=== PATIENT | female | born 1995 | race Caucasian/White ===

== ENCOUNTER 2018-05-30 16:06 | Outpatient (CLI) | payer MEDICAID, OTHER ==
[~2018-05-30] VITALS: Ht 165.1 cm; Wt 76.8 kg
--- NOTE | 2018-05-30 16:15 | NUR ---
DAVID LOPEZ presented to unit from ED, with c/o fever, headache, and elevated BP. DAVID LOPEZ weighed, gowned, voided, and to bed. EFHM and TOCO applied, VS taken, UA obtained. DAVID LOPEZ oriented to bed controls, call light, TV, heat, and A/C controls.
[2018-05-30 16:30] VITALS: BP 135/81
[2018-05-30 16:42] LABS: BILIRUBIN,URINE NEGATIVE (NEGATIVE); CLARITY,URINE CLEAR; COLOR,URINE YELLOW; GLUCOSE, URINE (UA) NEGATIVE (NEGATIVE); KETONES,URINE NEGATIVE (NEGATIVE); LEUKOCYTE ESTERASE ,URINE NEGATIVE (NEGATIVE); NITRITE,URINE NEGATIVE (NEGATIVE); PH,URINE 7 (5-9); PROTEIN,URINE NEGATIVE (NEGATIVE); UROBILINOGEN,URINE NORMAL (NORMAL)
[2018-05-30] MEDS ORDERED: PREN-53 PO (16:43)
[2018-05-30] MEDS ORDERED: BUTA1TAB9 PO (16:43)
[2018-05-30 16:48] LABS: BACTERIA,URINE TRACE /HPF
[2018-05-30 16:50] VITALS: BP 117/68
[2018-05-30 17:05] VITALS: BP 130/76
--- NOTE | 2018-05-30 17:12 | NUR ---
Dr. Avelar called and notified of pt. arrival, complaints, UA, VS, and FHR. Orders received via telephone with readback to discharge pt. home and to instruct her to call tomorrow for an appointment on Thursday to see in office and to take Fioricet every 4hours for headache. Discharge instructions given and pt. instructed to call or return to unit if she had any other questions or concerns.
[2018-05-30 17:20] VITALS: BP 125/68
--- NOTE | 2018-05-30 17:42 | NUR ---
Pt. ambulated off unit to personal vehicle. All personal belongings with pt. No s/s of distress noted.
== END 2018-05-30 17:42 | disposition home or self-care (01) ==
LOC: LDRP 16:06 → WSo 16:06
PROVIDERS: ATTEND Obstetrics & Gynecology
DX: R03.0 Elevated blood-pressure reading, without diagnosis of hypertension (principal); Z3A.26 26 weeks gestation of pregnancy
CPT/HCPCS: 81000; 99212

== ENCOUNTER 2018-07-09 15:43 | Outpatient (CLI) | payer MEDICAID ==
[~2018-07-09] VITALS: Ht 165.1 cm; Wt 81.8 kg
[~2018-07-09 15:43] MED LIST: BUTA1TAB9 PO; PREN-53 PO
--- NOTE | 2018-07-09 15:45 | NUR ---
DAVID LOPEZ presented to unit via ambulation from ED, with c/o HIGH BP, HIGH HEART RATE, SOB. DAVID LOPEZ weighed, gowned, voided, and to bed. EFHM and TOCO applied, VS taken. DAVID LOPEZ oriented to bed controls, call light, TV, heat, and A/C controls.
[2018-07-09 16:00] VITALS: BP 152/89
[2018-07-09 16:15] VITALS: BP 140/79
--- NOTE | 2018-07-09 16:17 | NUR ---
DR COLE CALLED BY THIS RN WITH PT REPORT. VS, BP 152/89, HR 108, CO CHEST PAIN, HEADACHE, SHORTNESS OF BREATH, SEEING SHADOWS. URINE DIP RESULTS. FHT STRIP RESULTS. DR COLE WOULD LIKE INTERNAL MEDICINE TO EVAL PT. THIS RN CALLED HOUSE SUPP. IN ORDER TO DO SO, WILL NEED TO DC FROM OB OUTPATIENT AND SEND TO ER FOR INTERNAL MED EVAL.
[2018-07-09 16:30] VITALS: BP 125/63
--- NOTE | 2018-07-09 17:00 | NUR ---
PT HAS BEEN DC FROM OB OUTPATIENT AND TAKEN BY WHEELCHAIR TO ER FOR EVALUATION AT THIS TIME.
== END 2018-07-09 17:00 | disposition home or self-care (01) ==
LOC: WSo 15:43 → LDRP 15:43 → WSo 17:00
PROVIDERS: ATTEND Obstetrics & Gynecology
DX: R03.0 Elevated blood-pressure reading, without diagnosis of hypertension (principal); Z3A.32 32 weeks gestation of pregnancy
CPT/HCPCS: 99213

== ENCOUNTER 2018-07-09 17:07 | Emergency (ER) | payer MEDICAID ==
[~2018-07-09] VITALS: Ht 165.1 cm; Wt 80.7 kg
--- OUTSIDE RECORDS SUMMARY | 2018-07-09 17:13 | XMS REPORT ---
Author Author JOSI ARLETH [facility] Address [address] [place] [address] Care Team Providers Care Child Protective Services Specialist Name Role Phone ARLETH PRATER Unavailable PROBLEMS Type Condition ICD9-CM Code [id number] Code Onset Dates Condition Status SNOMED Code Problem Depressive disorder, not elsewhere classified F32.9 Active 68787230 Problem ADHD (attention deficit hyperactivity disorder), combined type F90.2 Active 18611391 Problem Anxiety disorder, unspecified type F41.9 Active [id number] ALLERGIES No Information ENCOUNTERS Encounter Location Date Diagnosis [facility] [id number] [place] [address] 03471- 4853 Mar, [facility] [id number] [place] [address] 91621- 2376 Feb, ADHD (attention deficit hyperactivity disorder), combined type F90.2 [facility] [id number] [place] [address] 00046- 3279 Jan, ADHD (attention deficit hyperactivity disorder), combined type F90.2 [facility] [id number] [place] [address] 79571- 5262 Dec, ADHD (attention deficit hyperactivity disorder), combined type F90.2 [facility] [id number] [place] [address] 15375- 4917 Dec, ADHD (attention deficit hyperactivity disorder), combined type F90.2 [facility] [id number] [place] [address] 60595- 5357 Nov, ADHD (attention deficit hyperactivity disorder), combined type F90.2 [facility] [id number] [place] [address] 20178- 6853 Oct, ADHD (attention deficit hyperactivity disorder), combined type F90.2 ; Anxiety disorder, unspecified type F41.9 and Depressive disorder, not elsewhere classified F32.9 [facility] [address] [address] Oct, ADHD (attention deficit hyperactivity disorder), combined type F90.2 [facility] [address] [place] [address] Oct, [facility] [id number] [place] [address] 33046- 7717 September, ADHD (attention deficit hyperactivity disorder), combined type F90.2 [facility] [id number] [address] September, [facility] [id number] [address] 0[address] September, ADHD (attention deficit hyperactivity disorder), combined type F90.2 [facility] [address] [place] [address] Aug, ADHD (attention deficit hyperactivity disorder), combined type F90.2 ; Anxiety disorder, unspecified type F41.9 and Depressive disorder, not elsewhere classified F32.9 [facility] [address], [place] [address] Aug, ADHD (attention deficit hyperactivity disorder), combined type F90.2 [facility] [address] [place] [address] Jul, [facility] [address] [place] [address] 489[address] Jul, ADHD (attention deficit hyperactivity disorder), combined type F90.2 [facility] [address], [place] [address] Jun, ADHD (attention deficit hyperactivity disorder), combined type F90.2 [facility] [address] [place] [address] 6[address] Jun, ADHD (attention deficit hyperactivity disorder), combined type F90.2 [facility] [id number] [place] [address] 91541- 5724 May, ADHD (attention deficit hyperactivity disorder), combined type F90.2 [facility] [id number] [place] [address] 59071- 1907 May, [facility] [id number] [place] [address] 27681- 9879 May, ADHD (attention deficit hyperactivity disorder), combined type F90.2 ; Anxiety disorder, unspecified type F41.9 ; Depressive disorder, not elsewhere classified F32.9 and Obsessive-compulsive disorder, unspecified type F42.9 [facility] [id number] [place] [address] 00376- 3965 Apr, ADHD (attention deficit hyperactivity disorder), combined type F90.2 [facility] [id number] [place] [address] 83521 -6769 Apr, Acute suppurative otitis media of left ear without spontaneous rupture of tympanic membrane, recurrence not specified H66.002 [facility] [id number] [place] [address] 14962- 9604 Apr, [facility] [address] [place] [address] Mar, [facility] [id number] [place] [address] 95448- 5974 Mar, ADHD (attention deficit hyperactivity disorder), combined type F90.2 [facility] [address], [place] [address] 0679 Feb, ADHD (attention deficit hyperactivity disorder), combined type F90.2 [facility] [address], [place] [address] Feb, [facility] [id number] [place] [address] 96177- 5360 Jan, ADHD (attention deficit hyperactivity disorder), combined type F90.2 ; Anxiety disorder, unspecified type F41.9 ; Depressive disorder, not elsewhere classified F32.9 and Obsessive-compulsive disorder, unspecified type F42.9 [facility] [address], [place] [address] Dec, ADHD (attention deficit hyperactivity disorder), combined type F90.2 ; Anxiety disorder, unspecified type F41.9 ; Depressive disorder, not elsewhere classified F32.9 and Obsessive-compulsive disorder, unspecified type F42.9 [facility] [address], [place] [address] 9[address] Dec, [facility] [id number] [place] [address] 06198- 6837 Nov, ADHD (attention deficit hyperactivity disorder), combined type F90.2 ; Anxiety disorder, unspecified type F41.9 ; Depressive disorder, not elsewhere classified F32.9 and Obsessive-compulsive disorder, unspecified type F42.9 [facility] [address], [place] [address] Nov, ADHD (attention deficit hyperactivity disorder), combined type F90.2 ; Anxiety disorder, unspecified type F41.9 ; Depressive disorder, not elsewhere classified F32.9 and Obsessive-compulsive disorder, unspecified type F42.9 [facility] [address], [place] [address]- 2603 Nov, [facility] [address] [address]- 0811 Oct, ADHD (attention deficit hyperactivity disorder), combined type F90.2 [facility] [address], [place] [address]- 7797 Oct, [facility] [address] [place] [address]- 1280 Oct, ADHD (attention deficit hyperactivity disorder), combined type F90.2 [facility] [address] [place] [address] 51702- 9273 Oct, ADHD (attention deficit hyperactivity disorder), combined type F90.2 ; Anxiety disorder, unspecified type F41.9 ; Depressive disorder, not elsewhere classified F32.9 and Obsessive-compulsive disorder, unspecified type F42.9 [facility] [address] [facility] [id number] [place] [address] Oct, Depressive disorder, not elsewhere classified F32.9 ; Anxiety disorder, unspecified type F41.9 and ADHD (attention deficit hyperactivity disorder), combined type F90.2 IMMUNIZATIONS No Known Immunizations SOCIAL HISTORY Never Assessed REASON FOR VISIT Controlled Med Refill x2 ADHD PLAN OF CARE VITAL SIGNS MEDICATIONS Medication Instructions Dosage Frequency Start Date End Date Duration Status Vyvanse 60 mg Orally Once a day in the morning 1 capsule in the morning Feb, 28 days Active Adderall 10 mg Orally Once a day in the afternoon 1 tablet Feb, 28 days Active RESULTS No Results PROCEDURES No Known procedures INSTRUCTIONS MEDICATIONS ADMINISTERED No Known Medications MEDICAL (GENERAL) HISTORY Type Description Date Medical History migraines Medical History asthma Medical History Hx of febrile seizure at 18 mos Medical History Denies any hx of heart problem Surgical History C section Surgical History [place] [facility] Hospitalization History Surgery/Child Hospitalization History psychiatric hospitalization 2010
--- OUTSIDE RECORDS SUMMARY | 2018-07-09 17:13 | XMS REPORT ---
Author Author JOSI ARLETH [facility] Address [address] [place] [address] Care Team Providers Care Quarry Boss Name Role Phone ARLETH PRATER Unavailable PROBLEMS Type Condition ICD9-CM Code [id number] Code Onset Dates Condition Status SNOMED Code Problem Depressive disorder, not elsewhere classified F32.9 Active [id number] Problem ADHD (attention deficit hyperactivity disorder), combined type F90.2 Active 67584328 Problem Anxiety disorder, unspecified type F41.9 Active [id number] ALLERGIES No Information ENCOUNTERS Encounter Location Date Diagnosis [facility] [id number] [place] [address] 21971- 8287 Jan, ADHD (attention deficit hyperactivity disorder), combined type F90.2 [facility] [id number] [place] [address] 04272- 9759 Dec, ADHD (attention deficit hyperactivity disorder), combined type F90.2 [facility] [id number] [place] [address] 93722- 0055 Dec, ADHD (attention deficit hyperactivity disorder), combined type F90.2 [facility] [id number] [place] [address] 32874- 3751 Nov, ADHD (attention deficit hyperactivity disorder), combined type F90.2 [facility] [id number] [place] [address] 20221- 0099 Oct, ADHD (attention deficit hyperactivity disorder), combined type F90.2 ; Anxiety disorder, unspecified type F41.9 and Depressive disorder, not elsewhere classified F32.9 [facility] [id number] [place] [address] 50828- 1320 Oct, ADHD (attention deficit hyperactivity disorder), combined type F90.2 [facility] [address] [address]- 96[address] Oct, [facility] [id number] [address]- 9[address] September, ADHD (attention deficit hyperactivity disorder), combined type F90.2 [facility] [address] [address]- 5[address] September, [facility] [id number] [address]- 2110 September, ADHD (attention deficit hyperactivity disorder), combined type F90.2 [facility] [address] [address]- 9632 Aug, ADHD (attention deficit hyperactivity disorder), combined type F90.2 ; Anxiety disorder, unspecified type F41.9 and Depressive disorder, not elsewhere classified F32.9 [facility] [address] [address]- 8891 Aug, ADHD (attention deficit hyperactivity disorder), combined type F90.2 [facility] [address] [address]- 0813 Jul, [facility] [id number] [address]- 7465 Jul, ADHD (attention deficit hyperactivity disorder), combined type F90.2 [facility] [address] [address]- 9457 Jun, ADHD (attention deficit hyperactivity disorder), combined type F90.2 [facility] [id number] [address]- 3790 Jun, ADHD (attention deficit hyperactivity disorder), combined type F90.2 [facility] [id number] [address]- 5074 May, ADHD (attention deficit hyperactivity disorder), combined type F90.2 [facility] [id number] [address]- 7650 May, [facility] [id number] [place] [address] 70182- 8897 May, ADHD (attention deficit hyperactivity disorder), combined type F90.2 ; Anxiety disorder, unspecified type F41.9 ; Depressive disorder, not elsewhere classified F32.9 and Obsessive-compulsive disorder, unspecified type F42.9 [facility] [id number] [place] [address] 85460- 2514 Apr, ADHD (attention deficit hyperactivity disorder), combined type F90.2 [facility] [id number] [place] [address] 36693 -9298 Apr, Acute suppurative otitis media of left ear without spontaneous rupture of tympanic membrane, recurrence not specified H66.002 [facility] [id number] [place] [address] 79707- 0778 Apr, [facility] [id number] [place] [address] 09102- 0279 Mar, [facility] [id number] [place] [address] 24096- 5960 Mar, ADHD (attention deficit hyperactivity disorder), combined type F90.2 [facility] [id number] [place] [address] 04643- 1613 Feb, ADHD (attention deficit hyperactivity disorder), combined type F90.2 [facility] [id number] [place] [address] 59931- 8818 Feb, [facility] [id number] [place] [address] 65646- 4825 Jan, ADHD (attention deficit hyperactivity disorder), combined type F90.2 ; Anxiety disorder, unspecified type F41.9 ; Depressive disorder, not elsewhere classified F32.9 and Obsessive-compulsive disorder, unspecified type F42.9 [facility] [id number] [place] [address] 50962- 2741 Dec, ADHD (attention deficit hyperactivity disorder), combined type F90.2 ; Anxiety disorder, unspecified type F41.9 ; Depressive disorder, not elsewhere classified F32.9 and Obsessive-compulsive disorder, unspecified type F42.9 [facility] [address] [address]- 3694 Dec, [facility] [id number] [address]- 9511 Nov, ADHD (attention deficit hyperactivity disorder), combined type F90.2 ; Anxiety disorder, unspecified type F41.9 ; Depressive disorder, not elsewhere classified F32.9 and Obsessive-compulsive disorder, unspecified type F42.9 [facility] [id number] [place] [address] 68758- 1463 Nov, ADHD (attention deficit hyperactivity disorder), combined type F90.2 ; Anxiety disorder, unspecified type F41.9 ; Depressive disorder, not elsewhere classified F32.9 and Obsessive-compulsive disorder, unspecified type F42.9 [facility] [address] [address]- 7258 Nov, [facility] [id number] [place] [address] 72751- 1281 Oct, ADHD (attention deficit hyperactivity disorder), combined type F90.2 [facility] [address] [address]- 6232 Oct, [facility] [address] [address]- 6924 Oct, ADHD (attention deficit hyperactivity disorder), combined type F90.2 [facility] [address] [address]- 7799 Oct, ADHD (attention deficit hyperactivity disorder), combined type F90.2 ; Anxiety disorder, unspecified type F41.9 ; Depressive disorder, not elsewhere classified F32.9 and Obsessive-compulsive disorder, unspecified type F42.9 [facility] [id number] [address]- 7[address] Oct, Depressive disorder, not elsewhere classified F32.9 ; Anxiety disorder, unspecified type F41.9 and ADHD (attention deficit hyperactivity disorder), combined type F90.2 IMMUNIZATIONS No Known Immunizations SOCIAL HISTORY Never Assessed REASON FOR VISIT vyvanse/adderall 01/25/2018 PLAN OF CARE VITAL SIGNS MEDICATIONS Medication Instructions Dosage Frequency Start Date End Date Duration Status Adderall 10 mg Orally Once a day in the afternoon 1 tablet Dec, 28 days Active Vyvanse 60 mg Orally Once a day in the morning 1 capsule in the morning Dec, 28 days Active RESULTS No Results PROCEDURES No Known procedures INSTRUCTIONS MEDICATIONS ADMINISTERED No Known Medications MEDICAL (GENERAL) HISTORY Type Description Date Medical History migraines Medical History asthma Medical History Hx of febrile seizure at 18 mos Medical History Denies any hx of heart problem Surgical History C section Surgical History [place] [facility] Hospitalization History Surgery/Child Hospitalization History psychiatric hospitalization 2010
--- OUTSIDE RECORDS SUMMARY | 2018-07-09 17:13 | XMS REPORT ---
Author Author JOSI ARLETH [facility] Address [address] [place] [address] Care Team Providers Care Layout Worker Name Role Phone ARLETH PRATER Unavailable PROBLEMS Type Condition ICD9-CM Code TGZ38-PT Code Onset Dates Condition Status SNOMED Code Problem Depressive disorder, not elsewhere classified F32.9 Active 52305755 Problem ADHD (attention deficit hyperactivity disorder), combined type F90.2 Active 16975004 Problem Anxiety disorder, unspecified type F41.9 Active [id number] ALLERGIES No Information ENCOUNTERS Encounter Location Date Diagnosis [facility] [id number] [place] [address] 95088- 0210 Apr, [facility] [id number] [place] [address] 83465- 6669 Mar, ADHD (attention deficit hyperactivity disorder), combined type F90.2 [facility] [id number] [place] [address] 77345- 2675 Feb, ADHD (attention deficit hyperactivity disorder), combined type F90.2 [facility] [id number] [place] [address] 94552- 7654 Jan, ADHD (attention deficit hyperactivity disorder), combined type F90.2 [facility] [id number] [place] [address] 70699- 5866 Dec, ADHD (attention deficit hyperactivity disorder), combined type F90.2 [facility] [id number] [place] [address] 73860- 6316 Dec, ADHD (attention deficit hyperactivity disorder), combined type F90.2 [facility] [id number] [place] [address] 16115- 2372 Nov, ADHD (attention deficit hyperactivity disorder), combined type F90.2 [facility] [id number] [address] Oct, ADHD (attention deficit hyperactivity disorder), combined type F90.2 ; Anxiety disorder, unspecified type F41.9 and Depressive disorder, not elsewhere classified F32.9 [facility] [address] [address] 4098 Oct, ADHD (attention deficit hyperactivity disorder), combined type F90.2 [facility] [id number] [address] 8561 Oct, [facility] [id number] [address] 28[address] September, ADHD (attention deficit hyperactivity disorder), combined type F90.2 [facility] [address] [address] September, [facility] [id number] [address] 5184 September, ADHD (attention deficit hyperactivity disorder), combined type F90.2 [facility] [address] [address] 47[address] Aug, ADHD (attention deficit hyperactivity disorder), combined type F90.2 ; Anxiety disorder, unspecified type F41.9 and Depressive disorder, not elsewhere classified F32.9 [facility] [address] [address] 5499 Aug, ADHD (attention deficit hyperactivity disorder), combined type F90.2 [facility] [id number] [address] 3896 Jul, [facility] [id number] [address] 0243 Jul, ADHD (attention deficit hyperactivity disorder), combined type F90.2 [facility] [id number] [address] 9558 Jun, ADHD (attention deficit hyperactivity disorder), combined type F90.2 [facility] [address] [place] [address] 18447- 0082 Jun, ADHD (attention deficit hyperactivity disorder), combined type F90.2 [facility] [address] [address] 7710 May, ADHD (attention deficit hyperactivity disorder), combined type F90.2 [facility] [id number] [place] [address] 22078- 4891 May, [facility] [id number] [place] [address] 82187- 0794 May, ADHD (attention deficit hyperactivity disorder), combined type F90.2 ; Anxiety disorder, unspecified type F41.9 ; Depressive disorder, not elsewhere classified F32.9 and Obsessive-compulsive disorder, unspecified type F42.9 [facility] [id number] [place] [address] 78780- 5736 Apr, ADHD (attention deficit hyperactivity disorder), combined type F90.2 [facility] [id number] [place] [address] 68949 -5176 Apr, Acute suppurative otitis media of left ear without spontaneous rupture of tympanic membrane, recurrence not specified H66.002 [facility] [address] [address] 2086 Apr, [facility] [id number] [place] [address] 95278- 8170 Mar, [facility] [address] [place] [address] 42965- 4008 Mar, ADHD (attention deficit hyperactivity disorder), combined type F90.2 [facility] [address] [place] [address] 06796- 9627 Feb, ADHD (attention deficit hyperactivity disorder), combined type F90.2 [facility] [id number] [address] 0134 Feb, [facility] [id number] [place] [address] 31480- 8463 Jan, ADHD (attention deficit hyperactivity disorder), combined type F90.2 ; Anxiety disorder, unspecified type F41.9 ; Depressive disorder, not elsewhere classified F32.9 and Obsessive-compulsive disorder, unspecified type F42.9 [facility] [id number] [place] [address] 15359- 9623 Dec, ADHD (attention deficit hyperactivity disorder), combined type F90.2 ; Anxiety disorder, unspecified type F41.9 ; Depressive disorder, not elsewhere classified F32.9 and Obsessive-compulsive disorder, unspecified type F42.9 [place] [facility] [id number] [place] [address] 67385- 5591 Dec, [facility] [id number] [place] [address] 47307- 7926 Nov, ADHD (attention deficit hyperactivity disorder), combined type F90.2 ; Anxiety disorder, unspecified type F41.9 ; Depressive disorder, not elsewhere classified F32.9 and Obsessive-compulsive disorder, unspecified type F42.9 [facility] [address] [place] [address] 71807- 0017 Nov, ADHD (attention deficit hyperactivity disorder), combined type F90.2 ; Anxiety disorder, unspecified type F41.9 ; Depressive disorder, not elsewhere classified F32.9 and Obsessive-compulsive disorder, unspecified type F42.9 [facility] [address] [address]- 9708 Nov, [facility] [id number] [place] [address] 29293- 6216 Oct, ADHD (attention deficit hyperactivity disorder), combined type F90.2 [facility] [address] [address]- 8697 Oct, [facility] [id number] [place] [address] 12231- 4225 Oct, ADHD (attention deficit hyperactivity disorder), combined type F90.2 [place] [address] [facility] [id number] [address] Oct, ADHD (attention deficit hyperactivity disorder), combined type F90.2 ; Anxiety disorder, unspecified type F41.9 ; Depressive disorder, not elsewhere classified F32.9 and Obsessive-compulsive disorder, unspecified type F42.9 [address] [place] [address] [facility] [id number] [address] Oct, Depressive disorder, not elsewhere classified F32.9 ; Anxiety disorder, unspecified type F41.9 and ADHD (attention deficit hyperactivity disorder), combined type F90.2 IMMUNIZATIONS No Known Immunizations SOCIAL HISTORY Never Assessed REASON FOR VISIT Controlled refill PLAN OF CARE VITAL SIGNS MEDICATIONS Medication Instructions Dosage Frequency Start Date End Date Duration Status Adderall 10 mg Orally Once a day in the afternoon 1 tablet Apr, 21 days Active Vyvanse 60 mg Orally Once a day in the morning 1 capsule in the morning Apr, 21 days Active RESULTS No Results PROCEDURES No Known procedures INSTRUCTIONS MEDICATIONS ADMINISTERED No Known Medications MEDICAL (GENERAL) HISTORY Type Description Date Medical History migraines Medical History asthma Medical History Hx of febrile seizure at 18 mos Medical History Denies any hx of heart problem Surgical History C section Surgical History [place] [facility] Hospitalization History Surgery/Child Hospitalization History psychiatric hospitalization 2010
--- OUTSIDE RECORDS SUMMARY | 2018-07-09 17:13 | XMS REPORT ---
Author Author JOSI ARLETH [facility] Address [address] [place] [address] Care Team Providers Care Private Tutor Name Role Phone ARLETH PRATER Unavailable PROBLEMS Type Condition ICD9-CM Code CUV51-IA Code Onset Dates Condition Status SNOMED Code Problem Depressive disorder, not elsewhere classified F32.9 Active [id number] Problem ADHD (attention deficit hyperactivity disorder), combined type F90.2 Active 81991261 Problem Anxiety disorder, unspecified type F41.9 Active [id number] ALLERGIES No Information ENCOUNTERS Encounter Location Date Diagnosis [facility] [id number] [place] [address] 60656- 5252 Jan, ADHD (attention deficit hyperactivity disorder), combined type F90.2 [facility] [id number] [place] [address] 59190- 0608 Dec, ADHD (attention deficit hyperactivity disorder), combined type F90.2 [facility] [id number] [place] [address] 24609- 8545 Dec, ADHD (attention deficit hyperactivity disorder), combined type F90.2 [facility] [id number] [place] [address] 82528- 7014 Nov, ADHD (attention deficit hyperactivity disorder), combined type F90.2 [facility] [id number] [place] [address] 05297- 4849 Oct, ADHD (attention deficit hyperactivity disorder), combined type F90.2 ; Anxiety disorder, unspecified type F41.9 and Depressive disorder, not elsewhere classified F32.9 [facility] [id number] [place] [address] 32601- 8468 Oct, ADHD (attention deficit hyperactivity disorder), combined type F90.2 [facility] [address] [address]- 1292 Oct, [facility] [id number] [address]- 3801 September, ADHD (attention deficit hyperactivity disorder), combined type F90.2 [facility] [address] [address]- 7537 September, [facility] [id number] [address]- 9814 September, ADHD (attention deficit hyperactivity disorder), combined type F90.2 [facility] [address] [address]- 7170 Aug, ADHD (attention deficit hyperactivity disorder), combined type F90.2 ; Anxiety disorder, unspecified type F41.9 and Depressive disorder, not elsewhere classified F32.9 [facility] [address] [address]- 1030 Aug, ADHD (attention deficit hyperactivity disorder), combined type F90.2 [facility] [address] [address]- 5786 Jul, [facility] [address] [address]- 6399 Jul, ADHD (attention deficit hyperactivity disorder), combined type F90.2 [facility] [address] [address]- 5769 Jun, ADHD (attention deficit hyperactivity disorder), combined type F90.2 [facility] [id number] [address]- 7437 Jun, ADHD (attention deficit hyperactivity disorder), combined type F90.2 [facility] [id number] [address]- 9273 May, ADHD (attention deficit hyperactivity disorder), combined type F90.2 [facility] [id number] [address]- 8326 May, [facility] [id number] [place] [address] 26810- 1125 May, ADHD (attention deficit hyperactivity disorder), combined type F90.2 ; Anxiety disorder, unspecified type F41.9 ; Depressive disorder, not elsewhere classified F32.9 and Obsessive-compulsive disorder, unspecified type F42.9 [facility] [id number] [place] [address] 03723- 2298 Apr, ADHD (attention deficit hyperactivity disorder), combined type F90.2 [facility] [id number] [place] [address] 17268 -3057 Apr, Acute suppurative otitis media of left ear without spontaneous rupture of tympanic membrane, recurrence not specified H66.002 [facility] [id number] [place] [address] 49087- 0717 Apr, [facility] [id number] [place] [address] 45574- 8545 Mar, [facility] [id number] [place] [address] 80556- 1229 Mar, ADHD (attention deficit hyperactivity disorder), combined type F90.2 [facility] [id number] [place] [address] 43300- 9920 Feb, ADHD (attention deficit hyperactivity disorder), combined type F90.2 [facility] [id number] [place] [address] 18771- 9074 Feb, [facility] [id number] [place] [address] 83829- 4787 Jan, ADHD (attention deficit hyperactivity disorder), combined type F90.2 ; Anxiety disorder, unspecified type F41.9 ; Depressive disorder, not elsewhere classified F32.9 and Obsessive-compulsive disorder, unspecified type F42.9 [facility] [id number] [place] [address] 41965- 7344 Dec, ADHD (attention deficit hyperactivity disorder), combined type F90.2 ; Anxiety disorder, unspecified type F41.9 ; Depressive disorder, not elsewhere classified F32.9 and Obsessive-compulsive disorder, unspecified type F42.9 [facility] [address] [address]- 0980 Dec, [facility] [address] [address]- 3556 Nov, ADHD (attention deficit hyperactivity disorder), combined type F90.2 ; Anxiety disorder, unspecified type F41.9 ; Depressive disorder, not elsewhere classified F32.9 and Obsessive-compulsive disorder, unspecified type F42.9 [facility] [id number] [place] [address] 07991- 3626 Nov, ADHD (attention deficit hyperactivity disorder), combined type F90.2 ; Anxiety disorder, unspecified type F41.9 ; Depressive disorder, not elsewhere classified F32.9 and Obsessive-compulsive disorder, unspecified type F42.9 [facility] [address] [address]- 8241 Nov, [facility] [id number] [place] [address] 20208- 3811 Oct, ADHD (attention deficit hyperactivity disorder), combined type F90.2 [facility] [address] [address]- 6521 Oct, [facility] [address] [address]- 0773 Oct, ADHD (attention deficit hyperactivity disorder), combined type F90.2 [facility] [address] [address]- 1229 Oct, ADHD (attention deficit hyperactivity disorder), combined type F90.2 ; Anxiety disorder, unspecified type F41.9 ; Depressive disorder, not elsewhere classified F32.9 and Obsessive-compulsive disorder, unspecified type F42.9 [facility] [id number] [address]- 0754 Oct, Depressive disorder, not elsewhere classified F32.9 ; Anxiety disorder, unspecified type F41.9 and ADHD (attention deficit hyperactivity disorder), combined type F90.2 IMMUNIZATIONS No Known Immunizations SOCIAL HISTORY Never Assessed REASON FOR VISIT vyvanse/adderall resend PLAN OF CARE VITAL SIGNS MEDICATIONS Medication Instructions Dosage Frequency Start Date End Date Duration Status Vyvanse 60 mg Orally Once a day in the morning 1 capsule in the morning Jan, 28 days Active Adderall 10 mg Orally Once a day in the afternoon 1 tablet Jan, 28 days Active RESULTS No Results PROCEDURES No Known procedures INSTRUCTIONS MEDICATIONS ADMINISTERED No Known Medications MEDICAL (GENERAL) HISTORY Type Description Date Medical History migraines Medical History asthma Medical History Hx of febrile seizure at 18 mos Medical History Denies any hx of heart problem Surgical History C section Surgical History [place] [facility] Hospitalization History Surgery/Child Hospitalization History psychiatric hospitalization 2010
--- OUTSIDE RECORDS SUMMARY | 2018-07-09 17:14 | XMS REPORT ---
Author Author JOSI ARLETH [facility] Address [address] [place] [address] Care Team Providers Care Boat Cleaner Name Role Phone ARLETH PRATER Unavailable PROBLEMS Type Condition ICD9-CM Code [id number] Code Onset Dates Condition Status SNOMED Code Problem Depressive disorder, not elsewhere classified F32.9 Active 87174365 Problem ADHD (attention deficit hyperactivity disorder), combined type F90.2 Active 26787233 Problem Anxiety disorder, unspecified type F41.9 Active [id number] ALLERGIES No Information ENCOUNTERS Encounter Location Date Diagnosis [facility] [place], [facility] [id number] [place] [address] 20585- 7187 Dec, ADHD (attention deficit hyperactivity disorder), combined type F90.2 [facility] [place] [id number] [place] [address] 34530- 7128 Dec, ADHD (attention deficit hyperactivity disorder), combined type F90.2 [facility] [place] [id number] [place] [address] 29355- 5760 Nov, ADHD (attention deficit hyperactivity disorder), combined type F90.2 [facility] [place] [id number] [place] [address] 01898- 4669 Oct, ADHD (attention deficit hyperactivity disorder), combined type F90.2 ; Anxiety disorder, unspecified type F41.9 and Depressive disorder, not elsewhere classified F32.9 [facility] [place] [id number] [place] [address] 81428- 7095 Oct, ADHD (attention deficit hyperactivity disorder), combined type F90.2 [facility] [place] [id number] [place] [address] 24052- 8688 Oct, [facility] [place] [address] [place] [address] September, ADHD (attention deficit hyperactivity disorder), combined type F90.2 [facility] [place] [address] [address] September, [facility] [place] [address] [address] 18[address] September, ADHD (attention deficit hyperactivity disorder), combined type F90.2 [facility] [place] [id number] [address] Aug, ADHD (attention deficit hyperactivity disorder), combined type F90.2 ; Anxiety disorder, unspecified type F41.9 and Depressive disorder, not elsewhere classified F32.9 [facility] [place] [address] [address] Aug, ADHD (attention deficit hyperactivity disorder), combined type F90.2 [facility] [place] [address] [address] Jul, [facility] [place] [address] [address] 6400 Jul, ADHD (attention deficit hyperactivity disorder), combined type F90.2 [facility] [place] [address] [address] 6[address] Jun, ADHD (attention deficit hyperactivity disorder), combined type F90.2 [facility] [place] [address] [address] 2277 Jun, ADHD (attention deficit hyperactivity disorder), combined type F90.2 [facility] [place] [address] [address] 8559 May, ADHD (attention deficit hyperactivity disorder), combined type F90.2 [facility] [place] [address] [address] 6842 May, [facility] [place] [address] [address] 8448 May, ADHD (attention deficit hyperactivity disorder), combined type F90.2 ; Anxiety disorder, unspecified type F41.9 ; Depressive disorder, not elsewhere classified F32.9 and Obsessive-compulsive disorder, unspecified type F42.9 [facility] [place] [address] [address]60 Apr, ADHD (attention deficit hyperactivity disorder), combined type F90.2 [facility] [id number] [place] [address] 58084 -3026 Apr, Acute suppurative otitis media of left ear without spontaneous rupture of tympanic membrane, recurrence not specified H66.002 [facility] [place] [id number] [place] [address] 28391- 4598 Apr, [facility] [place] [id number] [place] [address] 87169- 3334 Mar, [facility] [place] [id number] [place] [address] 29196- 6042 Mar, ADHD (attention deficit hyperactivity disorder), combined type F90.2 [facility] [place] [id number] [place] [address] 68285- 4979 Feb, ADHD (attention deficit hyperactivity disorder), combined type F90.2 [facility] [place] [id number] [place] [address] 01713- 2451 Feb, [facility] [place] [id number] [place] [address] 94874- 7034 Jan, ADHD (attention deficit hyperactivity disorder), combined type F90.2 ; Anxiety disorder, unspecified type F41.9 ; Depressive disorder, not elsewhere classified F32.9 and Obsessive-compulsive disorder, unspecified type F42.9 [facility] [place] [id number] [place] [address] 78482- 1026 Dec, ADHD (attention deficit hyperactivity disorder), combined type F90.2 ; Anxiety disorder, unspecified type F41.9 ; Depressive disorder, not elsewhere classified F32.9 and Obsessive-compulsive disorder, unspecified type F42.9 [facility] [place] [address] [address]- 8098 Dec, [facility] [place] [id number] [address] 1305 Nov, ADHD (attention deficit hyperactivity disorder), combined type F90.2 ; Anxiety disorder, unspecified type F41.9 ; Depressive disorder, not elsewhere classified F32.9 and Obsessive-compulsive disorder, unspecified type F42.9 [facility] [place] [address] [address]- 9119 Nov, ADHD (attention deficit hyperactivity disorder), combined type F90.2 ; Anxiety disorder, unspecified type F41.9 ; Depressive disorder, not elsewhere classified F32.9 and Obsessive-compulsive disorder, unspecified type F42.9 [facility] [place] [address] [address]- 7712 Nov, [facility] [place] [address] [address]- 0864 Oct, ADHD (attention deficit hyperactivity disorder), combined type F90.2 [facility] [place] [address] [address]- 8085 Oct, [facility] [place] [address] [address]- 2543 Oct, ADHD (attention deficit hyperactivity disorder), combined type F90.2 [facility] [place] [address] [address]- 3008 Oct, ADHD (attention deficit hyperactivity disorder), combined type F90.2 ; Anxiety disorder, unspecified type F41.9 ; Depressive disorder, not elsewhere classified F32.9 and Obsessive-compulsive disorder, unspecified type F42.9 [facility] [place] [address] [address]- 2464 Oct, Depressive disorder, not elsewhere classified F32.9 ; Anxiety disorder, unspecified type F41.9 and ADHD (attention deficit hyperactivity disorder), combined type F90.2 IMMUNIZATIONS No Known Immunizations SOCIAL HISTORY Never Assessed REASON FOR VISIT Medication refill request PLAN OF CARE VITAL SIGNS MEDICATIONS Medication Instructions Dosage Frequency Start Date End Date Duration Status Adderall 10 mg Orally Once a day in the afternoon 1 tablet Nov, 28 days Active RESULTS No Results PROCEDURES No Known procedures INSTRUCTIONS MEDICATIONS ADMINISTERED No Known Medications MEDICAL (GENERAL) HISTORY Type Description Date Medical History migraines Medical History asthma Medical History Hx of febrile seizure at 18 mos Medical History Denies any hx of heart problem Surgical History C section Surgical History [place] Teeth Hospitalization History Surgery/Child Hospitalization History psychiatric hospitalization 2010
--- OUTSIDE RECORDS SUMMARY | 2018-07-09 17:14 | XMS REPORT ---
Author Author JOSI ARLETH [facility] Address [address] [place] [address] Care Team Providers Care Panel Edge Painter Name Role Phone JOSIARLETH Unavailable PROBLEMS Type Condition ICD9-CM Code [id number] Code Onset Dates Condition Status SNOMED Code Problem Depressive disorder, not elsewhere classified F32.9 Active 75097154 Problem ADHD (attention deficit hyperactivity disorder), combined type F90.2 Active 97319310 Problem Anxiety disorder, unspecified type F41.9 Active 544146508 ALLERGIES No Information ENCOUNTERS Encounter Location Date Diagnosis [facility] [id number] [place] [address] 21447- 6197 Dec, ADHD (attention deficit hyperactivity disorder), combined type F90.2 [facility] [id number] [place] [address] 40301- 0623 Nov, ADHD (attention deficit hyperactivity disorder), combined type F90.2 [facility] [id number] [place] [address] 69877- 9296 Oct, ADHD (attention deficit hyperactivity disorder), combined type F90.2 ; Anxiety disorder, unspecified type F41.9 and Depressive disorder, not elsewhere classified F32.9 [facility] [id number] [place] [address] 98074- 2756 Oct, ADHD (attention deficit hyperactivity disorder), combined type F90.2 [facility] [id number] [place] [address] 84278- 1429 Oct, [facility] [id number] [place] [address] 67376- 2935 September, ADHD (attention deficit hyperactivity disorder), combined type F90.2 [facility] [id number] [address]- 9553 September, [facility] [id number] [address]- 0652 September, ADHD (attention deficit hyperactivity disorder), combined type F90.2 [facility] [address] [address]- 9620 Aug, ADHD (attention deficit hyperactivity disorder), combined type F90.2 ; Anxiety disorder, unspecified type F41.9 and Depressive disorder, not elsewhere classified F32.9 [facility] [id number] [address]- 5894 Aug, ADHD (attention deficit hyperactivity disorder), combined type F90.2 [facility] [id number] [address]- 8020 Jul, [facility] [id number] [address]- 8779 Jul, ADHD (attention deficit hyperactivity disorder), combined type F90.2 [facility] [id number] [address]- 6718 Jun, ADHD (attention deficit hyperactivity disorder), combined type F90.2 [facility] [id number] [address]- 0389 Jun, ADHD (attention deficit hyperactivity disorder), combined type F90.2 [facility] [id number] [address]- 3807 May, ADHD (attention deficit hyperactivity disorder), combined type F90.2 [facility] [id number] [address]- 6823 May, [facility] [address] [address]- 5819 May, ADHD (attention deficit hyperactivity disorder), combined type F90.2 ; Anxiety disorder, unspecified type F41.9 ; Depressive disorder, not elsewhere classified F32.9 and Obsessive-compulsive disorder, unspecified type F42.9 [facility] [id number] [address]- 0523 Apr, ADHD (attention deficit hyperactivity disorder), combined type F90.2 [facility] [id number] [address] Apr, Acute suppurative otitis media of left ear without spontaneous rupture of tympanic membrane, recurrence not specified H66.002 [facility] [id number] [address]- 6800 Apr, [facility] [id number] [place] [address] 55619- 4141 Mar, [facility] [id number] [place] [address] 46506- 0503 Mar, ADHD (attention deficit hyperactivity disorder), combined type F90.2 [facility] [id number] [place] [address] 41813- 2018 Feb, ADHD (attention deficit hyperactivity disorder), combined type F90.2 [facility] [id number] [place] [address] 72922- 3878 Feb, [facility] [id number] [place] [address] 15507- 6583 Jan, ADHD (attention deficit hyperactivity disorder), combined type F90.2 ; Anxiety disorder, unspecified type F41.9 ; Depressive disorder, not elsewhere classified F32.9 and Obsessive-compulsive disorder, unspecified type F42.9 [facility] [address] [address]- 5059 Dec, ADHD (attention deficit hyperactivity disorder), combined type F90.2 ; Anxiety disorder, unspecified type F41.9 ; Depressive disorder, not elsewhere classified F32.9 and Obsessive-compulsive disorder, unspecified type F42.9 [facility] [id number] [address]- 2723 Dec, [address] [id number] [address]- 1153 Nov, ADHD (attention deficit hyperactivity disorder), combined type F90.2 ; Anxiety disorder, unspecified type F41.9 ; Depressive disorder, not elsewhere classified F32.9 and Obsessive-compulsive disorder, unspecified type F42.9 [place] [address] [address]- 4110 Nov, ADHD (attention deficit hyperactivity disorder), combined type F90.2 ; Anxiety disorder, unspecified type F41.9 ; Depressive disorder, not elsewhere classified F32.9 and Obsessive-compulsive disorder, unspecified type F42.9 [place] [id number] [place] [address] 50591- 2378 Nov, [place] [id number] [place] [address] 17471- 2758 Oct, ADHD (attention deficit hyperactivity disorder), combined type F90.2 [place] [address] [place] [address] 74913- 6453 Oct, [place] [id number] [place] [address] 83862- 7808 Oct, ADHD (attention deficit hyperactivity disorder), combined type F90.2 [place] [id number] [address]- 4673 Oct, ADHD (attention deficit hyperactivity disorder), combined type F90.2 ; Anxiety disorder, unspecified type F41.9 ; Depressive disorder, not elsewhere classified F32.9 and Obsessive-compulsive disorder, unspecified type F42.9 [place] [address] [address]- 3711 Oct, Depressive disorder, not elsewhere classified F32.9 ; Anxiety disorder, unspecified type F41.9 and ADHD (attention deficit hyperactivity disorder), combined type F90.2 IMMUNIZATIONS No Known Immunizations SOCIAL HISTORY Never Assessed REASON FOR VISIT PA- N/A PLAN OF CARE VITAL SIGNS MEDICATIONS Unknown Medications RESULTS No Results PROCEDURES No Known procedures INSTRUCTIONS MEDICATIONS ADMINISTERED No Known Medications MEDICAL (GENERAL) HISTORY Type Description Date Medical History migraines Medical History asthma Medical History Hx of febrile seizure at 18 mos Medical History Denies any hx of heart problem Surgical History C section Surgical History [place] Teeth Hospitalization History Surgery/Child Hospitalization History psychiatric hospitalization 2010
--- OUTSIDE RECORDS SUMMARY | 2018-07-09 17:14 | XMS REPORT ---
Author Author JOSI ARLETH [facility] Address [address] [place] [address] Care Team Providers Care Tomato Pulper Operator Name Role Phone JOSIARLETH Unavailable PROBLEMS Type Condition ICD9-CM Code [id number] Code Onset Dates Condition Status SNOMED Code Problem Depressive disorder, not elsewhere classified F32.9 Active 82748496 Problem ADHD (attention deficit hyperactivity disorder), combined type F90.2 Active 76268892 Problem Anxiety disorder, unspecified type F41.9 Active [id number] ALLERGIES No Information ENCOUNTERS Encounter Location Date Diagnosis [facility] [id number] [place] [address] 35253- 6720 Dec, ADHD (attention deficit hyperactivity disorder), combined type F90.2 [facility] [id number] [place] [address] 03951- 3313 Nov, ADHD (attention deficit hyperactivity disorder), combined type F90.2 [facility] [id number] [place] [address] 38473- 0636 Oct, ADHD (attention deficit hyperactivity disorder), combined type F90.2 ; Anxiety disorder, unspecified type F41.9 and Depressive disorder, not elsewhere classified F32.9 [facility] [id number] [place] [address] 32719- 4206 Oct, ADHD (attention deficit hyperactivity disorder), combined type F90.2 [facility] [id number] [place] [address] 44115- 5993 Oct, [facility] [id number] [place] [address] 27230- 0943 September, ADHD (attention deficit hyperactivity disorder), combined type F90.2 [facility] [id number] [address] 24[address] September, [facility] [address], [place] [address] 2881 September, ADHD (attention deficit hyperactivity disorder), combined type F90.2 [facility] [address], [place] [address]- 2760 Aug, ADHD (attention deficit hyperactivity disorder), combined type F90.2 ; Anxiety disorder, unspecified type F41.9 and Depressive disorder, not elsewhere classified F32.9 [facility] [address], [place] [address]- 1188 Aug, ADHD (attention deficit hyperactivity disorder), combined type F90.2 [facility] [address], [place] [address]- 9072 Jul, [facility] [id number] [address]- 8999 Jul, ADHD (attention deficit hyperactivity disorder), combined type F90.2 [facility] [address], [place] [address]- 2088 Jun, ADHD (attention deficit hyperactivity disorder), combined type F90.2 [facility] [address], [place] [address]- 5222 Jun, ADHD (attention deficit hyperactivity disorder), combined type F90.2 [facility] [address], [place] [address]- 0904 May, ADHD (attention deficit hyperactivity disorder), combined type F90.2 [facility] [address], [place] [address]- 3508 May, [facility] [address], [place] [address]- 6048 May, ADHD (attention deficit hyperactivity disorder), combined type F90.2 ; Anxiety disorder, unspecified type F41.9 ; Depressive disorder, not elsewhere classified F32.9 and Obsessive-compulsive disorder, unspecified type F42.9 [facility] [address], [place] [address] 9529 Apr, ADHD (attention deficit hyperactivity disorder), combined type F90.2 [facility] [address], [place] [address] Apr, Acute suppurative otitis media of left ear without spontaneous rupture of tympanic membrane, recurrence not specified H66.002 [facility] [id number] [address] 8600 Apr, [facility] [id number] [place] [address] 38520- 8164 Mar, [facility] [id number] [place] [address] 99770- 8608 Mar, ADHD (attention deficit hyperactivity disorder), combined type F90.2 [facility] [id number] [place] [address] 84178- 3091 Feb, ADHD (attention deficit hyperactivity disorder), combined type F90.2 [facility] [id number] [place] [address] 69152- 3900 Feb, [facility] [address] [place] [address] 35353- 4472 Jan, ADHD (attention deficit hyperactivity disorder), combined type F90.2 ; Anxiety disorder, unspecified type F41.9 ; Depressive disorder, not elsewhere classified F32.9 and Obsessive-compulsive disorder, unspecified type F42.9 [facility] [address], [place] [address]- 7067 Dec, ADHD (attention deficit hyperactivity disorder), combined type F90.2 ; Anxiety disorder, unspecified type F41.9 ; Depressive disorder, not elsewhere classified F32.9 and Obsessive-compulsive disorder, unspecified type F42.9 [facility] [address], [place] [address]- 1609 Dec, [place] [address], [place] [address]- 4653 Nov, ADHD (attention deficit hyperactivity disorder), combined type F90.2 ; Anxiety disorder, unspecified type F41.9 ; Depressive disorder, not elsewhere classified F32.9 and Obsessive-compulsive disorder, unspecified type F42.9 [place] [facility] [address] [place] [address] 80966- 3902 Nov, ADHD (attention deficit hyperactivity disorder), combined type F90.2 ; Anxiety disorder, unspecified type F41.9 ; Depressive disorder, not elsewhere classified F32.9 and Obsessive-compulsive disorder, unspecified type F42.9 [facility] [id number] [place] [address] 26784- 1619 Nov, [place] [facility] [id number] [place] [address] 78572- 0384 Oct, ADHD (attention deficit hyperactivity disorder), combined type F90.2 [facility] [id number] [place] [address] 28976- 1665 Oct, [place] [id number] [place] [address] 65491- 3818 Oct, ADHD (attention deficit hyperactivity disorder), combined type F90.2 [place] [address], [place] [address]- 0836 Oct, ADHD (attention deficit hyperactivity disorder), combined type F90.2 ; Anxiety disorder, unspecified type F41.9 ; Depressive disorder, not elsewhere classified F32.9 and Obsessive-compulsive disorder, unspecified type F42.9 [place] [address], [place] [address]- 6067 Oct, Depressive disorder, not elsewhere classified F32.9 ; Anxiety disorder, unspecified type F41.9 and ADHD (attention deficit hyperactivity disorder), combined type F90.2 IMMUNIZATIONS No Known Immunizations SOCIAL HISTORY Never Assessed REASON FOR VISIT Controlled Med Refill PLAN OF CARE VITAL SIGNS MEDICATIONS Medication Instructions Dosage Frequency Start Date End Date Duration Status Adderall 10 mg Orally Once a day in the afternoon 1 tablet September, 28 days Active RESULTS No Results PROCEDURES No Known procedures INSTRUCTIONS MEDICATIONS ADMINISTERED No Known Medications MEDICAL (GENERAL) HISTORY Type Description Date Medical History migraines Medical History asthma Medical History Hx of febrile seizure at 18 mos Medical History Denies any hx of heart problem Surgical History C section Surgical History [facility] Hospitalization History Surgery/Child Hospitalization History psychiatric hospitalization 2010
--- OUTSIDE RECORDS SUMMARY | 2018-07-09 17:14 | XMS REPORT ---
Author Author NICOLASA LIANG [facility] Address [address] [place] [address] Care Team Providers Care Telecommunications Engineer Name Role Phone NICOLASA LIANG Unavailable PROBLEMS Type Condition ICD9-CM Code [id number] Code Onset Dates Condition Status SNOMED Code Problem Depressive disorder, not elsewhere classified F32.9 Active 30278936 Problem ADHD (attention deficit hyperactivity disorder), combined type F90.2 Active 42157267 Problem Anxiety disorder, unspecified type F41.9 Active 327157831 ALLERGIES No Information ENCOUNTERS Encounter Location Date Diagnosis [facility] [id number] [place] [address] 34099- 8348 Dec, ADHD (attention deficit hyperactivity disorder), combined type F90.2 [place] [id number] [place] [address] 02715- 4915 Nov, ADHD (attention deficit hyperactivity disorder), combined type F90.2 [place] [id number] [place] [address] 46993- 9604 Oct, ADHD (attention deficit hyperactivity disorder), combined type F90.2 ; Anxiety disorder, unspecified type F41.9 and Depressive disorder, not elsewhere classified F32.9 [facility] [address] [place] [address] 95573- 5948 Oct, ADHD (attention deficit hyperactivity disorder), combined type F90.2 [place] [id number] [place] [address] 61456- 4603 Oct, [place] [id number] [place] [address] 58316- 2015 September, ADHD (attention deficit hyperactivity disorder), combined type F90.2 [place] [id number] [place] [address] [place] [address]- 6975 September, [facility] [address], [place] [address]- 1216 September, ADHD (attention deficit hyperactivity disorder), combined type F90.2 [facility] [id number] [address]- 7429 Aug, ADHD (attention deficit hyperactivity disorder), combined type F90.2 ; Anxiety disorder, unspecified type F41.9 and Depressive disorder, not elsewhere classified F32.9 [facility] [address], [place] [address]- 3560 Aug, ADHD (attention deficit hyperactivity disorder), combined type F90.2 [facility] [address], [place] [address]- 7896 Jul, [facility] [address], [place] [address]- 5053 Jul, ADHD (attention deficit hyperactivity disorder), combined type F90.2 [facility] [address], [place] [address]- 8410 16 Jun, 2017 ADHD (attention deficit hyperactivity disorder), combined type F90.2 [facility] [address], [place] [address]- 7901 Jun, ADHD (attention deficit hyperactivity disorder), combined type F90.2 [facility] [address], [place] [address]- 6549 May, ADHD (attention deficit hyperactivity disorder), combined type F90.2 [facility] [address], [place] [address]- 9844 May, [facility] [id number], [place] [address]- 5579 May, ADHD (attention deficit hyperactivity disorder), combined type F90.2 ; Anxiety disorder, unspecified type F41.9 ; Depressive disorder, not elsewhere classified F32.9 and Obsessive-compulsive disorder, unspecified type F42.9 [facility] [address], [place] [address]- 6387 Apr, ADHD (attention deficit hyperactivity disorder), combined type F90.2 [facility] [address], [place] [address] Apr, Acute suppurative otitis media of left ear without spontaneous rupture of tympanic membrane, recurrence not specified H66.002 [facility] [id number] [place] [address] 49643- 0447 Apr, [facility] [id number] [place] [address] 15984- 9882 Mar, [facility] [id number] [place] [address] 74151- 4903 Mar, ADHD (attention deficit hyperactivity disorder), combined type F90.2 [facility] [id number] [place] [address] 74449- 8994 Feb, ADHD (attention deficit hyperactivity disorder), combined type F90.2 [facility] [address] [place] [address] 12554- 2222 Feb, [facility] [id number] [place] [address] 59622- 2213 Jan, ADHD (attention deficit hyperactivity disorder), combined type F90.2 ; Anxiety disorder, unspecified type F41.9 ; Depressive disorder, not elsewhere classified F32.9 and Obsessive-compulsive disorder, unspecified type F42.9 [facility] [address], [place] [address]- 8392 Dec, ADHD (attention deficit hyperactivity disorder), combined type F90.2 ; Anxiety disorder, unspecified type F41.9 ; Depressive disorder, not elsewhere classified F32.9 and Obsessive-compulsive disorder, unspecified type F42.9 [facility] [address], [place] [address]- 6320 Dec, [facility] [address], [place] [address]- 2695 Nov, ADHD (attention deficit hyperactivity disorder), combined type F90.2 ; Anxiety disorder, unspecified type F41.9 ; Depressive disorder, not elsewhere classified F32.9 and Obsessive-compulsive disorder, unspecified type F42.9 [place] [address], [place] [address]- 8503 Nov, ADHD (attention deficit hyperactivity disorder), combined type F90.2 ; Anxiety disorder, unspecified type F41.9 ; Depressive disorder, not elsewhere classified F32.9 and Obsessive-compulsive disorder, unspecified type F42.9 [place] [id number] [place] [address] 19630- 4464 Nov, [place] [id number] [place] [address] 45002- 5374 Oct, ADHD (attention deficit hyperactivity disorder), combined type F90.2 [place] [address], [place] [address]- 9392 Oct, [place] [id number] [place] [address] 61628- 5184 Oct, ADHD (attention deficit hyperactivity disorder), combined type F90.2 [place] [address], [place] [address]- 2177 Oct, ADHD (attention deficit hyperactivity disorder), combined type F90.2 ; Anxiety disorder, unspecified type F41.9 ; Depressive disorder, not elsewhere classified F32.9 and Obsessive-compulsive disorder, unspecified type F42.9 [place] [address], [place] [address]- 4193 Oct, Depressive disorder, not elsewhere classified F32.9 ; Anxiety disorder, unspecified type F41.9 and ADHD (attention deficit hyperactivity disorder), combined type F90.2 IMMUNIZATIONS No Known Immunizations SOCIAL HISTORY Never Assessed REASON FOR VISIT vyvanse 10/23/17 PLAN OF CARE VITAL SIGNS MEDICATIONS Medication Instructions Dosage Frequency Start Date End Date Duration Status Vyvanse 60 mg Orally Once a day in the morning 1 capsule in the morning Oct, 28 days Active RESULTS No Results PROCEDURES No Known procedures INSTRUCTIONS MEDICATIONS ADMINISTERED No Known Medications MEDICAL (GENERAL) HISTORY Type Description Date Medical History migraines Medical History asthma Medical History Hx of febrile seizure at 18 mos Medical History Denies any hx of heart problem Surgical History C section Surgical History [facility] Hospitalization History Surgery/Child Hospitalization History psychiatric hospitalization 2010
--- OUTSIDE RECORDS SUMMARY | 2018-07-09 17:14 | XMS REPORT ---
Author Author JOSI ARLETH [facility] Address [address] [place] [address] Care Team Providers Care Bioinformatics Software Engineer Name Role Phone ARLETH PRATER Unavailable PROBLEMS Type Condition ICD9-CM Code [id number] Code Onset Dates Condition Status SNOMED Code Problem Depressive disorder, not elsewhere classified F32.9 Active 13558904 Problem ADHD (attention deficit hyperactivity disorder), combined type F90.2 Active 30209328 Problem Anxiety disorder, unspecified type F41.9 Active 680382916 ALLERGIES No Information ENCOUNTERS Encounter Location Date Diagnosis [facility] [id number] [place] [address] 92912- 7743 Jan, ADHD (attention deficit hyperactivity disorder), combined type F90.2 [facility] [id number] [place] [address] 86957- 7408 Dec, ADHD (attention deficit hyperactivity disorder), combined type F90.2 [facility] [id number] [place] [address] 93592- 5317 Dec, ADHD (attention deficit hyperactivity disorder), combined type F90.2 [facility] [id number] [place] [address] 37890- 6309 Nov, ADHD (attention deficit hyperactivity disorder), combined type F90.2 [facility] [id number] [place] [address] 76188- 1197 Oct, ADHD (attention deficit hyperactivity disorder), combined type F90.2 ; Anxiety disorder, unspecified type F41.9 and Depressive disorder, not elsewhere classified F32.9 [facility] [id number] [place] [address] 41581- 8709 Oct, ADHD (attention deficit hyperactivity disorder), combined type F90.2 [facility] [address] [address]- 6537 Oct, [facility] [id number] [address]- 2328 September, ADHD (attention deficit hyperactivity disorder), combined type F90.2 [facility] [address] [address]- 7688 September, [facility] [id number] [address]- 2350 September, ADHD (attention deficit hyperactivity disorder), combined type F90.2 [facility] [address] [address]- 8518 Aug, ADHD (attention deficit hyperactivity disorder), combined type F90.2 ; Anxiety disorder, unspecified type F41.9 and Depressive disorder, not elsewhere classified F32.9 [facility] [address] [address]- 7593 Aug, ADHD (attention deficit hyperactivity disorder), combined type F90.2 [facility] [address] [address]- 9836 Jul, [facility] [address] [address]- 1025 Jul, ADHD (attention deficit hyperactivity disorder), combined type F90.2 [facility] [address] [address]- 9289 Jun, ADHD (attention deficit hyperactivity disorder), combined type F90.2 [facility] [id number] [address]- 2601 Jun, ADHD (attention deficit hyperactivity disorder), combined type F90.2 [facility] [id number] [address]- 1334 May, ADHD (attention deficit hyperactivity disorder), combined type F90.2 [facility] [id number] [address]- 5122 May, [facility] [id number] [place] [address] 42865- 4662 May, ADHD (attention deficit hyperactivity disorder), combined type F90.2 ; Anxiety disorder, unspecified type F41.9 ; Depressive disorder, not elsewhere classified F32.9 and Obsessive-compulsive disorder, unspecified type F42.9 [facility] [id number] [place] [address] 40651- 4642 Apr, ADHD (attention deficit hyperactivity disorder), combined type F90.2 [facility] [id number] [place] [address] 37834 -1358 Apr, Acute suppurative otitis media of left ear without spontaneous rupture of tympanic membrane, recurrence not specified H66.002 [facility] [id number] [place] [address] 76985- 1760 Apr, [facility] [id number] [place] [address] 61840- 9552 Mar, [facility] [id number] [place] [address] 21458- 4750 Mar, ADHD (attention deficit hyperactivity disorder), combined type F90.2 [facility] [id number] [place] [address] 89360- 5624 Feb, ADHD (attention deficit hyperactivity disorder), combined type F90.2 [facility] [id number] [place] [address] 66760- 4534 Feb, [facility] [address] [place] [address] 74008- 3000 Jan, ADHD (attention deficit hyperactivity disorder), combined type F90.2 ; Anxiety disorder, unspecified type F41.9 ; Depressive disorder, not elsewhere classified F32.9 and Obsessive-compulsive disorder, unspecified type F42.9 [facility] [id number] [place] [address] 64060- 8819 Dec, ADHD (attention deficit hyperactivity disorder), combined type F90.2 ; Anxiety disorder, unspecified type F41.9 ; Depressive disorder, not elsewhere classified F32.9 and Obsessive-compulsive disorder, unspecified type F42.9 [facility] [address] [address]- 7371 Dec, [facility] [address] [address]- 4348 Nov, ADHD (attention deficit hyperactivity disorder), combined type F90.2 ; Anxiety disorder, unspecified type F41.9 ; Depressive disorder, not elsewhere classified F32.9 and Obsessive-compulsive disorder, unspecified type F42.9 [facility] [address] [place] [address] 47954- 0034 Nov, ADHD (attention deficit hyperactivity disorder), combined type F90.2 ; Anxiety disorder, unspecified type F41.9 ; Depressive disorder, not elsewhere classified F32.9 and Obsessive-compulsive disorder, unspecified type F42.9 [facility] [address] [address]- 1706 Nov, [facility] [address] [place] [address] 81661- 2672 Oct, ADHD (attention deficit hyperactivity disorder), combined type F90.2 [facility] [address] [address]- 2543 Oct, [facility] [address] [address]- 1275 Oct, ADHD (attention deficit hyperactivity disorder), combined type F90.2 [facility] [address] [address]- 8379 Oct, ADHD (attention deficit hyperactivity disorder), combined type F90.2 ; Anxiety disorder, unspecified type F41.9 ; Depressive disorder, not elsewhere classified F32.9 and Obsessive-compulsive disorder, unspecified type F42.9 [facility] [id number] [address]- 3529 Oct, Depressive disorder, not elsewhere classified F32.9 ; Anxiety disorder, unspecified type F41.9 and ADHD (attention deficit hyperactivity disorder), combined type F90.2 IMMUNIZATIONS No Known Immunizations SOCIAL HISTORY Never Assessed REASON FOR VISIT vyvanse/adderall 12/28/2017 PLAN OF CARE VITAL SIGNS MEDICATIONS Medication [...] problem Surgical History C section Surgical History [facility] Hospitalization History Surgery/Child Hospitalization History psychiatric hospitalization 2010
--- OUTSIDE RECORDS SUMMARY | 2018-07-09 17:14 | XMS REPORT ---
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 Name Role Phone JOSI, ARLETH Unavailable PROBLEMS Type Condition ICD9-CM Code BSP18-MP Code Onset Dates Condition Status SNOMED Code Problem Depressive disorder, not elsewhere classified F32.9 Active 44231796 Problem ADHD (attention deficit hyperactivity disorder), combined type F90.2 Active 71669755 Problem Anxiety disorder, unspecified type F41.9 Active [id number] ALLERGIES Substance Reaction Event Type Date Status Strattera Numbness/Heart Rate Increased/SOA Drug Allergy Oct, Active ENCOUNTERS Encounter Location Date Diagnosis [facility] [id number] [place] [address] 25361- 1175 Dec, ADHD (attention deficit hyperactivity disorder), combined type F90.2 [facility] [id number] [place] [address] 49670- 4922 Dec, ADHD (attention deficit hyperactivity disorder), combined type F90.2 [facility] [id number] [place] [address] 36255- 3489 Nov, ADHD (attention deficit hyperactivity disorder), combined type F90.2 [facility] [id number] [place] [address] 91886- 5799 Oct, ADHD (attention deficit hyperactivity disorder), combined type F90.2 ; Anxiety disorder, unspecified type F41.9 and Depressive disorder, not elsewhere classified F32.9 [facility] [id number] [place] [address] 09709- 7527 Oct, ADHD (attention deficit hyperactivity disorder), combined type F90.2 [facility] [address] [address] Oct, [facility] [id number] [address] September, ADHD (attention deficit hyperactivity disorder), combined type F90.2 [facility] [address] [address] September, [facility] [id number] [address] September, ADHD (attention deficit hyperactivity disorder), combined type F90.2 [facility] [id number] [address] Aug, ADHD (attention deficit hyperactivity disorder), combined type F90.2 ; Anxiety disorder, unspecified type F41.9 and Depressive disorder, not elsewhere classified F32.9 [facility] [address] [address] Aug, ADHD (attention deficit hyperactivity disorder), combined type F90.2 [facility] [id number] [address] Jul, [facility] [id number], [place] [address] Jul, ADHD (attention deficit hyperactivity disorder), combined type F90.2 [facility] [id number] [address] Jun, ADHD (attention deficit hyperactivity disorder), combined type F90.2 [facility] [id number] [address] Jun, ADHD (attention deficit hyperactivity disorder), combined type F90.2 [facility] [id number] [address] May, ADHD (attention deficit hyperactivity disorder), combined type F90.2 [facility] [id number] [address] May, [facility] [address] [address] May, ADHD (attention deficit hyperactivity disorder), combined type F90.2 ; Anxiety disorder, unspecified type F41.9 ; Depressive disorder, not elsewhere classified F32.9 and Obsessive-compulsive disorder, unspecified type F42.9 [facility] [address] [address] Apr, ADHD (attention deficit hyperactivity disorder), combined type F90.2 [facility] [id number] [address] Apr, Acute suppurative otitis media of left ear without spontaneous rupture of tympanic membrane, recurrence not specified H66.002 [facility] [id number] [address] Apr, [facility] [id number] [address] Mar, [facility] [id number] [place] [address] 23439- 9059 Mar, ADHD (attention deficit hyperactivity disorder), combined type F90.2 [facility] [address] [address] Feb, ADHD (attention deficit hyperactivity disorder), combined type F90.2 [facility] [address] [address] Feb, [facility] [address] [address] Jan, ADHD (attention deficit hyperactivity disorder), combined type F90.2 ; Anxiety disorder, unspecified type F41.9 ; Depressive disorder, not elsewhere classified F32.9 and Obsessive-compulsive disorder, unspecified type F42.9 [facility] [address], [place] [address] Dec, ADHD (attention deficit hyperactivity disorder), combined type F90.2 ; Anxiety disorder, unspecified type F41.9 ; Depressive disorder, not elsewhere classified F32.9 and Obsessive-compulsive disorder, unspecified type F42.9 [facility] [address], [place] [address] Dec, [facility] [id number] [address] Nov, ADHD (attention deficit hyperactivity disorder), combined type F90.2 ; Anxiety disorder, unspecified type F41.9 ; Depressive disorder, not elsewhere classified F32.9 and Obsessive-compulsive disorder, unspecified type F42.9 [facility] [id number] [place] [address] 72604- 7293 Nov, ADHD (attention deficit hyperactivity disorder), combined type F90.2 ; Anxiety disorder, unspecified type F41.9 ; Depressive disorder, not elsewhere classified F32.9 and Obsessive-compulsive disorder, unspecified type F42.9 [facility] [id number] [place] [address] 54502- 6685 Nov, [facility] [id number] [place] [address] 61496- 6720 Oct, ADHD (attention deficit hyperactivity disorder), combined type F90.2 [facility] [id number] [address] Oct, [facility] [id number], [place] [address] Oct, ADHD (attention deficit hyperactivity disorder), combined type F90.2 [facility] [id number], [place] [address] Oct, ADHD (attention deficit hyperactivity disorder), combined type F90.2 ; Anxiety disorder, unspecified type F41.9 ; Depressive disorder, not elsewhere classified F32.9 and Obsessive-compulsive disorder, unspecified type F42.9 [facility] [id number], [place] [address] Oct, Depressive disorder, not elsewhere classified F32.9 ; Anxiety disorder, unspecified type F41.9 and ADHD (attention deficit hyperactivity disorder), combined type F90.2 IMMUNIZATIONS No Known Immunizations SOCIAL HISTORY Never Assessed REASON FOR VISIT f/u Flavio PLAN OF CARE Activity Details Follow Up 3 Months Reason: f/u VITAL SIGNS Height 65.5 in 2017-11-20 Weight 130.2 lbs 2017-11-20 Heart Rate 104 bpm 2017-11-20 Respiratory Rate 24 2017-11-20 BMI 21.33 kg/m2 2017-11-20 Blood pressure systolic 144 mmHg 2017-11-20 Blood pressure diastolic 86 mmHg 2017-11-20 MEDICATIONS Medication Instructions Dosage Frequency Start Date End Date Duration Status Prozac 40 mg Orally Once a day 1 capsule 24h May, 30 days Active Naproxen 500 MG Orally every 12 hrs 1 tablet as needed 12h Active Flexeril 10 MG Orally Three times a day 1 tablet as needed 8h Active Vyvanse 60 mg Orally Once a day in the morning 1 capsule in the morning Oct, 28 days Active Hydrocodone-Acetaminophen 5-325 MG Orally every 6 hrs 1 tablet as needed 6h Not-Taking Adderall 10 mg Orally Once a day in the afternoon 1 tablet Oct, Active Propranolol HCl 10 mg Orally Twice a day as needed for anxiety 1 tablet Aug, 30 day(s) Active Asmanex HFA 200 MCG/ACT Inhalation Twice a day 2 puffs 12h Not- Taking Depakote 250 MG Orally 2 times a day 1 tablet 12h Not-Taking Albuterol Sulfate HFA 108 (90 Base) MCG/ACT Inhalation every 4 hrs 2 puffs as needed 4h Active AZO Urinary Pain Relief 95 MG Orally Three times a day x 3 days 1 tablet Not-Taking Ciprofloxacin 500mg Orally 2 times a day 1 tablet 12h Not-Taking RESULTS No Results PROCEDURES No Known procedures INSTRUCTIONS MEDICATIONS ADMINISTERED No Known Medications MEDICAL (GENERAL) HISTORY Type Description Date Medical History migraines Medical History asthma Medical History Hx of febrile seizure at 18 mos Medical History Denies any hx of heart problem Surgical History C section Surgical History [place] [facility] Hospitalization History Surgery/Child Hospitalization History psychiatric hospitalization 2010
--- OUTSIDE RECORDS SUMMARY | 2018-07-09 17:14 | XMS REPORT ---
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 Name Role Phone JOSIARLETH Unavailable PROBLEMS Type Condition ICD9-CM Code UCY37-RP Code Onset Dates Condition Status SNOMED Code Problem Depressive disorder, not elsewhere classified F32.9 Active [id number] Problem ADHD (attention deficit hyperactivity disorder), combined type F90.2 Active 56611398 Problem Anxiety disorder, unspecified type F41.9 Active 213359722 ALLERGIES No Information ENCOUNTERS Encounter Location Date Diagnosis [facility] [id number] [place] [address] 12975- 9542 Dec, ADHD (attention deficit hyperactivity disorder), combined type F90.2 [facility] [id number] [place] [address] 99493- 8298 Nov, ADHD (attention deficit hyperactivity disorder), combined type F90.2 [facility] [id number] [place] [address] 18964- 7525 Oct, ADHD (attention deficit hyperactivity disorder), combined type F90.2 ; Anxiety disorder, unspecified type F41.9 and Depressive disorder, not elsewhere classified F32.9 [facility] [id number] [place] [address] 83730- 2030 Oct, ADHD (attention deficit hyperactivity disorder), combined type F90.2 [facility] [id number] [place] [address] 32956- 4376 Oct, [facility] [id number] [place] [address] 65323- 8961 September, ADHD (attention deficit hyperactivity disorder), combined type F90.2 [facility] [id number], [place] [address] September, [facility] [address], [place] [address]- 0[address] September, ADHD (attention deficit hyperactivity disorder), combined type F90.2 [facility] [address], [place] [address]- 7[address] Aug, ADHD (attention deficit hyperactivity disorder), combined type F90.2 ; Anxiety disorder, unspecified type F41.9 and Depressive disorder, not elsewhere classified F32.9 [facility] [address], [place] [address]- 74[address] Aug, ADHD (attention deficit hyperactivity disorder), combined type F90.2 [facility] [address], [place] [address]- [address] Jul, [facility] [id number] [address]- 7148 Jul, ADHD (attention deficit hyperactivity disorder), combined type F90.2 [facility] [address], [place] [address]- 4610 Jun, ADHD (attention deficit hyperactivity disorder), combined type F90.2 [facility] [address] [address]- 2599 Jun, ADHD (attention deficit hyperactivity disorder), combined type F90.2 [facility] [address], [place] [address]- 4021 May, ADHD (attention deficit hyperactivity disorder), combined type F90.2 [facility] [address], [place] [address]- 0381 May, [facility] [address] [place] [address]- 1845 May, ADHD (attention deficit hyperactivity disorder), combined type F90.2 ; Anxiety disorder, unspecified type F41.9 ; Depressive disorder, not elsewhere classified F32.9 and Obsessive-compulsive disorder, unspecified type F42.9 [facility] [address], [place] [address]- 0111 Apr, ADHD (attention deficit hyperactivity disorder), combined type F90.2 [facility] [address], [place] [address] Apr, Acute suppurative otitis media of left ear without spontaneous rupture of tympanic membrane, recurrence not specified H66.002 [facility] [id number] [address]- [address]94 Apr, [facility] [id number] [place] [address] 70107- 9150 Mar, [facility] [id number] [place] [address] 59867- 8837 Mar, ADHD (attention deficit hyperactivity disorder), combined type F90.2 [facility] [id number] [place] [address] 20736- 0393 Feb, ADHD (attention deficit hyperactivity disorder), combined type F90.2 [facility] [id number] [place] [address] 81633- 2740 Feb, [facility] [id number] [place] [address] 23368- 1318 Jan, ADHD (attention deficit hyperactivity disorder), combined type F90.2 ; Anxiety disorder, unspecified type F41.9 ; Depressive disorder, not elsewhere classified F32.9 and Obsessive-compulsive disorder, unspecified type F42.9 [facility] [address] [address]- [address] Dec, ADHD (attention deficit hyperactivity disorder), combined type F90.2 ; Anxiety disorder, unspecified type F41.9 ; Depressive disorder, not elsewhere classified F32.9 and Obsessive-compulsive disorder, unspecified type F42.9 [facility] [address] [address]- [address] Dec, [address] [place] [address]- 90[address] Nov, ADHD (attention deficit hyperactivity disorder), combined type F90.2 ; Anxiety disorder, unspecified type F41.9 ; Depressive disorder, not elsewhere classified F32.9 and Obsessive-compulsive disorder, unspecified type F42.9 [address] [address], [place] [address]- 8090 Nov, ADHD (attention deficit hyperactivity disorder), combined type F90.2 ; Anxiety disorder, unspecified type F41.9 ; Depressive disorder, not elsewhere classified F32.9 and Obsessive-compulsive disorder, unspecified type F42.9 [facility] [id number] [place] [address] 46451- 5958 Nov, [facility] [id number] [place] [address] 19579- 2297 Oct, ADHD (attention deficit hyperactivity disorder), combined type F90.2 [facility] [address] [address]- [address] Oct, [address] [id number] [place] [address] 94516- 5512 Oct, ADHD (attention deficit hyperactivity disorder), combined type F90.2 [facility] [address], [place] [address]- [address]3 Oct, ADHD (attention deficit hyperactivity disorder), combined type F90.2 ; Anxiety disorder, unspecified type F41.9 ; Depressive disorder, not elsewhere classified F32.9 and Obsessive-compulsive disorder, unspecified type F42.9 [address] [address] [address]- 5[address] Oct, Depressive disorder, not elsewhere classified F32.9 ; Anxiety disorder, unspecified type F41.9 and ADHD (attention deficit hyperactivity disorder), combined type F90.2 IMMUNIZATIONS No Known Immunizations SOCIAL HISTORY Never Assessed REASON FOR VISIT adderall 11/02/17 PLAN OF CARE VITAL SIGNS MEDICATIONS Medication Instructions Dosage Frequency Start Date End Date Duration Status Adderall 10 mg Orally Once a day in the afternoon 1 tablet Oct, 28 days Active RESULTS No Results PROCEDURES No Known procedures INSTRUCTIONS MEDICATIONS ADMINISTERED No Known Medications MEDICAL (GENERAL) HISTORY Type Description Date Medical History migraines Medical History asthma Medical History Hx of febrile seizure at 18 mos Medical History Denies any hx of heart problem Surgical History C section Surgical History [place] [facility] Hospitalization History Surgery/Child Hospitalization History psychiatric hospitalization 2010
--- OUTSIDE RECORDS SUMMARY | 2018-07-09 17:15 | XMS REPORT ---
Author Author JOSI ARLETH [facility] Address [address] [place] [address] Care Team Providers Care Action Finisher Name Role Phone ARLETH PRATER Unavailable PROBLEMS Type Condition ICD9-CM Code IIE20-GU Code Onset Dates Condition Status SNOMED Code Problem Depressive disorder, not elsewhere classified F32.9 Active 85481802 Problem ADHD (attention deficit hyperactivity disorder), combined type F90.2 Active 71978011 Problem Anxiety disorder, unspecified type F41.9 Active [id number] ALLERGIES No Information ENCOUNTERS Encounter Location Date Diagnosis [facility] [id number] [place] [address] 68562- 1603 Oct, ADHD (attention deficit hyperactivity disorder), combined type F90.2 ; Anxiety disorder, unspecified type F41.9 and Depressive disorder, not elsewhere classified F32.9 [facility] [id number] [place] [address] 58624- 6256 Oct, ADHD (attention deficit hyperactivity disorder), combined type F90.2 [facility] [id number] [place] [address] 18008- 9124 Oct, [facility] [id number] [place] [address] 51163- 2544 September, ADHD (attention deficit hyperactivity disorder), combined type F90.2 [facility] [id number] [place] [address] 14652- 4681 September, [facility] [id number] [place] [address] 61991- 7691 September, ADHD (attention deficit hyperactivity disorder), combined type F90.2 [facility] [id number] [place] [address] 10483- 4392 Aug, ADHD (attention deficit hyperactivity disorder), combined type F90.2 ; Anxiety disorder, unspecified type F41.9 and Depressive disorder, not elsewhere classified F32.9 [facility] [address] [place] [address] 07413- 1182 Aug, ADHD (attention deficit hyperactivity disorder), combined type F90.2 [facility] [id number] [place] [address] 82471- 5541 Jul, [facility] [id number] [place] [address] 86792- 5437 Jul, ADHD (attention deficit hyperactivity disorder), combined type F90.2 [facility] [id number] [place] [address] 32112- 1164 Jun, ADHD (attention deficit hyperactivity disorder), combined type F90.2 [facility] [id number] [place] [address] 75376- 9966 Jun, ADHD (attention deficit hyperactivity disorder), combined type F90.2 [facility] [id number] [place] [address] 20743- 2896 May, ADHD (attention deficit hyperactivity disorder), combined type F90.2 [facility] [address] [place] [address] 66915- 7548 May, [facility] [id number] [place] [address] 87435- 8355 May, ADHD (attention deficit hyperactivity disorder), combined type F90.2 ; Anxiety disorder, unspecified type F41.9 ; Depressive disorder, not elsewhere classified F32.9 and Obsessive-compulsive disorder, unspecified type F42.9 [facility] [address] [place] [address] 02339- 8045 Apr, ADHD (attention deficit hyperactivity disorder), combined type F90.2 [facility] [address], [place] [address] Apr, Acute suppurative otitis media of left ear without spontaneous rupture of tympanic membrane, recurrence not specified H66.002 [facility] [address] [address] 1135 Apr, [facility] [address] [address] 1420 Mar, [facility] [id number] [place] [address] 55043- 4957 Mar, ADHD (attention deficit hyperactivity disorder), combined type F90.2 [facility] [id number] [place] [address] 24018- 0662 Feb, ADHD (attention deficit hyperactivity disorder), combined type F90.2 [facility] [id number] [address]- 6083 Feb, [facility] [id number] [place] [address] 69882- 4828 Jan, ADHD (attention deficit hyperactivity disorder), combined type F90.2 ; Anxiety disorder, unspecified type F41.9 ; Depressive disorder, not elsewhere classified F32.9 and Obsessive-compulsive disorder, unspecified type F42.9 [facility] [address], [place] [address]- 8407 Dec, ADHD (attention deficit hyperactivity disorder), combined type F90.2 ; Anxiety disorder, unspecified type F41.9 ; Depressive disorder, not elsewhere classified F32.9 and Obsessive-compulsive disorder, unspecified type F42.9 [facility] [address] [address]- 3640 Dec, [facility] [address] [place] [address] 32482- 3707 Nov, ADHD (attention deficit hyperactivity disorder), combined type F90.2 ; Anxiety disorder, unspecified type F41.9 ; Depressive disorder, not elsewhere classified F32.9 and Obsessive-compulsive disorder, unspecified type F42.9 [facility] [id number] [address]- 8356 Nov, ADHD (attention deficit hyperactivity disorder), combined type F90.2 ; Anxiety disorder, unspecified type F41.9 ; Depressive disorder, not elsewhere classified F32.9 and Obsessive-compulsive disorder, unspecified type F42.9 [facility] [address], [place] [address]- 1514 Nov, [facility] [id number] [place] [address] 76001- 1924 Oct, ADHD (attention deficit hyperactivity disorder), combined type F90.2 [facility] [id number] [place] [address] 564326- 0577 Oct, [facility] [id number] [place] [address] 23510- 6905 Oct, ADHD (attention deficit hyperactivity disorder), combined type F90.2 [facility] [address], [place] [address]- 2038 Oct, ADHD (attention deficit hyperactivity disorder), combined type F90.2 ; Anxiety disorder, unspecified type F41.9 ; Depressive disorder, not elsewhere classified F32.9 and Obsessive-compulsive disorder, unspecified type F42.9 [facility] [address], [place] [address]- 1528 Oct, Depressive disorder, not elsewhere classified F32.9 ; Anxiety disorder, unspecified type F41.9 and ADHD (attention deficit hyperactivity disorder), combined type F90.2 IMMUNIZATIONS No Known Immunizations SOCIAL HISTORY Never Assessed REASON FOR VISIT vyvanse/adderall 07/09/2017 PLAN OF CARE VITAL SIGNS MEDICATIONS Medication Instructions Dosage Frequency Start Date End Date Duration Status Adderall 10 mg Orally Once a day in the afternoon 1 tablet Jun, 28 days Active Vyvanse 50 mg Orally Once a day in the morning 1 capsule in the morning Jun, 28 days Active RESULTS No Results PROCEDURES No Known procedures INSTRUCTIONS MEDICATIONS ADMINISTERED No Known Medications MEDICAL (GENERAL) HISTORY Type Description Date Medical History migraines Medical History asthma Medical History Hx of febrile seizure at 18 mos Medical History Denies any hx of heart problem Surgical History C section Surgical History [place] [facility] Hospitalization History Surgery/Child Hospitalization History psychiatric hospitalization 2010
--- OUTSIDE RECORDS SUMMARY | 2018-07-09 17:15 | XMS REPORT ---
Author Author JOSI ARLETH [facility] [address] Address [address] [place] [address] Care Team Providers Care Coating Machine Helper Name Role Phone ARLETH PRATER Unavailable PROBLEMS Type Condition ICD9-CM Code LNB23-HP Code Onset Dates Condition Status SNOMED Code Problem Depressive disorder, not elsewhere classified F32.9 Active 54948731 Problem ADHD (attention deficit hyperactivity disorder), combined type F90.2 Active 67448130 Problem Anxiety disorder, unspecified type F41.9 Active 514133368 ALLERGIES No Information ENCOUNTERS Encounter Location Date Diagnosis [facility] [id number] [place] [address] 28795- 8905 Nov, ADHD (attention deficit hyperactivity disorder), combined type F90.2 [facility] [id number] [place] [address] 71880- 2046 Oct, ADHD (attention deficit hyperactivity disorder), combined type F90.2 ; Anxiety disorder, unspecified type F41.9 and Depressive disorder, not elsewhere classified F32.9 [facility] [address] [place] [address] 02269- 8693 Oct, ADHD (attention deficit hyperactivity disorder), combined type F90.2 [facility] [id number] [place] [address] 21541- 5190 Oct, [facility] [id number] [place] [address] 80719- 9068 September, ADHD (attention deficit hyperactivity disorder), combined type F90.2 [facility] [id number] [place] [address] 71694- 7462 September, [facility] [id number] [place] [address] 15696- 4740 September, ADHD (attention deficit hyperactivity disorder), combined type F90.2 [facility] [address], [place] [address]- 8680 Aug, ADHD (attention deficit hyperactivity disorder), combined type F90.2 ; Anxiety disorder, unspecified type F41.9 and Depressive disorder, not elsewhere classified F32.9 [facility] [id number] [address]- 0468 Aug, ADHD (attention deficit hyperactivity disorder), combined type F90.2 [facility] [address], [place] [address]- 8441 Jul, [facility] [id number] [place] [address] 75870- 2115 Jul, ADHD (attention deficit hyperactivity disorder), combined type F90.2 [facility] [address], [place] [address]- 9727 16 Jun, 2017 ADHD (attention deficit hyperactivity disorder), combined type F90.2 [facility] [address], [place] [address]- 6501 Jun, ADHD (attention deficit hyperactivity disorder), combined type F90.2 [facility] [address], [place] [address]- 8088 May, ADHD (attention deficit hyperactivity disorder), combined type F90.2 [facility] [address], [place] [address]- 5263 May, [facility] [address], [place] [address]- 1979 May, ADHD (attention deficit hyperactivity disorder), combined type F90.2 ; Anxiety disorder, unspecified type F41.9 ; Depressive disorder, not elsewhere classified F32.9 and Obsessive-compulsive disorder, unspecified type F42.9 [facility] [address], [place] [address]- 1249 Apr, ADHD (attention deficit hyperactivity disorder), combined type F90.2 [facility] [address], [place] [address] Apr, Acute suppurative otitis media of left ear without spontaneous rupture of tympanic membrane, recurrence not specified H66.002 [facility] [address], [place] [address]- 4426 Apr, [facility] [id number] [address]- 5054 Mar, [facility] [address], [place] [address]- 5764 Mar, ADHD (attention deficit hyperactivity disorder), combined type F90.2 [facility] [address], [place] [address]- 2366 Feb, ADHD (attention deficit hyperactivity disorder), combined type F90.2 [facility] [address], [place] [address]- 9023 Feb, [facility] [address], [place] [address]- 6754 Jan, ADHD (attention deficit hyperactivity disorder), combined type F90.2 ; Anxiety disorder, unspecified type F41.9 ; Depressive disorder, not elsewhere classified F32.9 and Obsessive-compulsive disorder, unspecified type F42.9 [facility] [address], [place] [address]- 5338 Dec, ADHD (attention deficit hyperactivity disorder), combined type F90.2 ; Anxiety disorder, unspecified type F41.9 ; Depressive disorder, not elsewhere classified F32.9 and Obsessive-compulsive disorder, unspecified type F42.9 [facility] [address], [place] [address]- 1865 Dec, [facility] [address], [place] [address]- 3909 Nov, ADHD (attention deficit hyperactivity disorder), combined type F90.2 ; Anxiety disorder, unspecified type F41.9 ; Depressive disorder, not elsewhere classified F32.9 and Obsessive-compulsive disorder, unspecified type F42.9 [facility] [address] [place] [address]- 6995 Nov, ADHD (attention deficit hyperactivity disorder), combined type F90.2 ; Anxiety disorder, unspecified type F41.9 ; Depressive disorder, not elsewhere classified F32.9 and Obsessive-compulsive disorder, unspecified type F42.9 [facility] [id number] [place] [address] 24887- 9536 Nov, [facility] [id number] [place] [address] 77209- 0301 Oct, ADHD (attention deficit hyperactivity disorder), combined type F90.2 [facility] [id number] [place] [address] 11170- 1638 Oct, [facility] [id number] [place] [address] 20662- 3666 Oct, ADHD (attention deficit hyperactivity disorder), combined type F90.2 [facility] [id number] [place] [address] 57422- 4188 Oct, ADHD (attention deficit hyperactivity disorder), combined type F90.2 ; Anxiety disorder, unspecified type F41.9 ; Depressive disorder, not elsewhere classified F32.9 and Obsessive-compulsive disorder, unspecified type F42.9 [facility] [address] [place] [address] 64849- 0445 Oct, Depressive disorder, not elsewhere classified F32.9 ; Anxiety disorder, unspecified type F41.9 and ADHD (attention deficit hyperactivity disorder), combined type F90.2 IMMUNIZATIONS No Known Immunizations SOCIAL HISTORY Never Assessed REASON FOR VISIT vyvanse/adderall 09/03/2017 PLAN OF CARE VITAL SIGNS MEDICATIONS Medication Instructions Dosage Frequency Start Date End Date Duration Status Vyvanse 50 mg Orally Once a day in the morning 1 capsule in the morning Aug, 28 days Active Adderall 10 mg Orally Once a day in the afternoon 1 tablet Aug, 28 days Active RESULTS No Results PROCEDURES No Known procedures INSTRUCTIONS MEDICATIONS ADMINISTERED No Known Medications MEDICAL (GENERAL) HISTORY Type Description Date Medical History migraines Medical History asthma Medical History Hx of febrile seizure at 18 mos Medical History Denies any hx of heart problem Surgical History C section Surgical History [place] [facility] Hospitalization History Surgery/Child Hospitalization History psychiatric hospitalization 2010
--- OUTSIDE RECORDS SUMMARY | 2018-07-09 17:15 | XMS REPORT ---
Author Author JOSI ARLETH [facility] Address [address] [place] [address] Care Team Providers Care Gas Utility Worker Name Role Phone JOSIARLETH Unavailable PROBLEMS Type Condition ICD9-CM Code DUS41-RL Code Onset Dates Condition Status SNOMED Code Problem Depressive disorder, not elsewhere classified F32.9 Active 71988846 Problem ADHD (attention deficit hyperactivity disorder), combined type F90.2 Active 03085653 Problem Anxiety disorder, unspecified type F41.9 Active 742573557 ALLERGIES No Information ENCOUNTERS Encounter Location Date Diagnosis [facility] [id number] [place] [address] 13254- 8909 Dec, ADHD (attention deficit hyperactivity disorder), combined type F90.2 [facility] [id number] [place] [address] 68462- 5959 Nov, ADHD (attention deficit hyperactivity disorder), combined type F90.2 [facility] [id number] [place] [address] 81156- 4661 Oct, ADHD (attention deficit hyperactivity disorder), combined type F90.2 ; Anxiety disorder, unspecified type F41.9 and Depressive disorder, not elsewhere classified F32.9 [facility] [id number] [place] [address] 28597- 9152 Oct, ADHD (attention deficit hyperactivity disorder), combined type F90.2 [facility] [id number] [place] [address] 44114- 8167 Oct, [facility] [id number] [place] [address] 64473- 9054 September, ADHD (attention deficit hyperactivity disorder), combined type F90.2 [facility] [id number] [address]- 7866 September, [facility] [address], [place] [address]- 5112 September, ADHD (attention deficit hyperactivity disorder), combined type F90.2 [facility] [address], [place] [address]- 3499 Aug, ADHD (attention deficit hyperactivity disorder), combined type F90.2 ; Anxiety disorder, unspecified type F41.9 and Depressive disorder, not elsewhere classified F32.9 [facility] [address], [place] [address]- 4345 Aug, ADHD (attention deficit hyperactivity disorder), combined type F90.2 [facility] [address], [place] [address]- 7656 Jul, [facility] [id number] [address]- 6648 Jul, ADHD (attention deficit hyperactivity disorder), combined type F90.2 [facility] [address], [place] [address]- 2037 Jun, ADHD (attention deficit hyperactivity disorder), combined type F90.2 [facility] [address], [place] [address]- 6308 Jun, ADHD (attention deficit hyperactivity disorder), combined type F90.2 [facility] [address], [place] [address]- 9385 May, ADHD (attention deficit hyperactivity disorder), combined type F90.2 [facility] [address], [place] [address]- 8789 May, [facility] [address], [place] [address]- 7592 May, ADHD (attention deficit hyperactivity disorder), combined type F90.2 ; Anxiety disorder, unspecified type F41.9 ; Depressive disorder, not elsewhere classified F32.9 and Obsessive-compulsive disorder, unspecified type F42.9 [facility] [address], [place] [address]- 5623 Apr, ADHD (attention deficit hyperactivity disorder), combined type F90.2 [facility] [address], [place] [address] -[address] Apr, Acute suppurative otitis media of left ear without spontaneous rupture of tympanic membrane, recurrence not specified H66.002 [facility] [address] [address]- 3666 Apr, [facility] [id number] [place] [address] 36980- 0708 Mar, [facility] [id number] [place] [address] 55573- 6809 Mar, ADHD (attention deficit hyperactivity disorder), combined type F90.2 [facility] [address] [place] [address] 86319- 7574 Feb, ADHD (attention deficit hyperactivity disorder), combined type F90.2 [facility] [address] [place] [address] 52002- 3174 Feb, [facility] [address] [place] [address] 82355- 2148 Jan, ADHD (attention deficit hyperactivity disorder), combined type F90.2 ; Anxiety disorder, unspecified type F41.9 ; Depressive disorder, not elsewhere classified F32.9 and Obsessive-compulsive disorder, unspecified type F42.9 [facility] [address], [place] [address]- 2552 Dec, ADHD (attention deficit hyperactivity disorder), combined type F90.2 ; Anxiety disorder, unspecified type F41.9 ; Depressive disorder, not elsewhere classified F32.9 and Obsessive-compulsive disorder, unspecified type F42.9 [facility] [address], [place] [address]- 3994 Dec, [place] [address], [place] [address]- 6825 Nov, ADHD (attention deficit hyperactivity disorder), combined type F90.2 ; Anxiety disorder, unspecified type F41.9 ; Depressive disorder, not elsewhere classified F32.9 and Obsessive-compulsive disorder, unspecified type F42.9 [place] [facility] [address] [place] [address] 93288- 4819 Nov, ADHD (attention deficit hyperactivity disorder), combined type F90.2 ; Anxiety disorder, unspecified type F41.9 ; Depressive disorder, not elsewhere classified F32.9 and Obsessive-compulsive disorder, unspecified type F42.9 [facility] [id number] [place] [address] 71234- 6281 Nov, [facility] [id number] [place] [address] 51849- 9686 Oct, ADHD (attention deficit hyperactivity disorder), combined type F90.2 [facility] [id number] [place] [address] 10565- 3750 Oct, [facility] [id number] [place] [address] 60181- 0483 Oct, ADHD (attention deficit hyperactivity disorder), combined type F90.2 [facility] [address], [place] [address]- 7875 Oct, ADHD (attention deficit hyperactivity disorder), combined type F90.2 ; Anxiety disorder, unspecified type F41.9 ; Depressive disorder, not elsewhere classified F32.9 and Obsessive-compulsive disorder, unspecified type F42.9 [place] [address], [place] [address]- 6035 Oct, Depressive disorder, not elsewhere classified F32.9 ; Anxiety disorder, unspecified type F41.9 and ADHD (attention deficit hyperactivity disorder), combined type F90.2 IMMUNIZATIONS No Known Immunizations SOCIAL HISTORY Never Assessed REASON FOR VISIT stimulant PLAN OF CARE VITAL SIGNS MEDICATIONS Medication Instructions Dosage Frequency Start Date End Date Duration Status Vyvanse 60 mg Orally Once a day in the morning 1 capsule in the morning September, 28 days Active RESULTS No Results PROCEDURES No Known procedures INSTRUCTIONS MEDICATIONS ADMINISTERED No Known Medications MEDICAL (GENERAL) HISTORY Type Description Date Medical History migraines Medical History asthma Medical History Hx of febrile seizure at 18 mos Medical History Denies any hx of heart problem Surgical History C section Surgical History [place] [facility] Hospitalization History Surgery/Child Hospitalization History psychiatric hospitalization 2010
--- OUTSIDE RECORDS SUMMARY | 2018-07-09 17:15 | XMS REPORT ---
Author Author JOSIJOAN BernalN [facility] Address [address] [place] [address] Care Team Providers Care Air Analysis Technician Name Role Phone JOAN PRATERN Unavailable PROBLEMS Type Condition ICD9-CM Code MYT29-LS Code Onset Dates Condition Status SNOMED Code Problem Depressive disorder, not elsewhere classified F32.9 Active 54174193 Problem ADHD (attention deficit hyperactivity disorder), combined type F90.2 Active 17950041 Problem Anxiety disorder, unspecified type F41.9 Active 123431177 ALLERGIES Substance Reaction Event Type Date Status Strattera Numbness/Heart Rate Increased/SOA Drug Allergy Aug, Active ENCOUNTERS Encounter Location Date Diagnosis [facility] [id number] [place] [address] 11819- 6716 Nov, ADHD (attention deficit hyperactivity disorder), combined type F90.2 [facility] [id number] [place] [address] 63575- 5801 Oct, ADHD (attention deficit hyperactivity disorder), combined type F90.2 ; Anxiety disorder, unspecified type F41.9 and Depressive disorder, not elsewhere classified F32.9 [facility] [address] [place] [address] 51311- 3530 Oct, ADHD (attention deficit hyperactivity disorder), combined type F90.2 [facility] [address] [address] 114[address] Oct, [facility] [id number] [place] [address] 73628- 8642 September, ADHD (attention deficit hyperactivity disorder), combined type F90.2 [facility] [id number] [place] [address] 47119- 6289 September, [place] [address] [address] 1387 September, ADHD (attention deficit hyperactivity disorder), combined type F90.2 [facility] [address] [address] 1776 Aug, ADHD (attention deficit hyperactivity disorder), combined type F90.2 ; Anxiety disorder, unspecified type F41.9 and Depressive disorder, not elsewhere classified F32.9 [facility] [address], [place] [address] 7572 Aug, ADHD (attention deficit hyperactivity disorder), combined type F90.2 [facility] [address] [address] 7339 Jul, [facility] [id number] [address] 8116 Jul, ADHD (attention deficit hyperactivity disorder), combined type F90.2 [facility] [address] [address] 0673 Jun, ADHD (attention deficit hyperactivity disorder), combined type F90.2 [facility] [address] [address] 1083 Jun, ADHD (attention deficit hyperactivity disorder), combined type F90.2 [facility] [address], [place] [address] 2882 May, ADHD (attention deficit hyperactivity disorder), combined type F90.2 [facility] [address], [place] [address] 8442 May, [facility] [address] [address] 7127 May, ADHD (attention deficit hyperactivity disorder), combined type F90.2 ; Anxiety disorder, unspecified type F41.9 ; Depressive disorder, not elsewhere classified F32.9 and Obsessive-compulsive disorder, unspecified type F42.9 [facility] [address] [address] 8681 Apr, ADHD (attention deficit hyperactivity disorder), combined type F90.[address] [facility] [address] [place] [address] 20851 -3933 Apr, Acute suppurative otitis media of left ear without spontaneous rupture of tympanic membrane, recurrence not specified H66.002 [facility] [id number] [address] 5733 Apr, [facility] [id number] [place] [address] 02136- 7557 Mar, [facility] [id number] [place] [address] 90099- 4969 Mar, ADHD (attention deficit hyperactivity disorder), combined type F90.2 [facility] [address], [place] [address]- 1732 Feb, ADHD (attention deficit hyperactivity disorder), combined type F90.2 [facility] [address] [address]- 0465 Feb, [facility] [id number] [place] [address] 68038- 9150 Jan, ADHD (attention deficit hyperactivity disorder), combined type F90.2 ; Anxiety disorder, unspecified type F41.9 ; Depressive disorder, not elsewhere classified F32.9 and Obsessive-compulsive disorder, unspecified type F42.9 [facility] [address], [place] [address]- 4767 Dec, ADHD (attention deficit hyperactivity disorder), combined type F90.2 ; Anxiety disorder, unspecified type F41.9 ; Depressive disorder, not elsewhere classified F32.9 and Obsessive-compulsive disorder, unspecified type F42.9 [facility] [address], [place] [address]- 6999 Dec, [facility] [address], [place] [address]- 1729 Nov, ADHD (attention deficit hyperactivity disorder), combined type F90.2 ; Anxiety disorder, unspecified type F41.9 ; Depressive disorder, not elsewhere classified F32.9 and Obsessive-compulsive disorder, unspecified type F42.9 [facility] [address], [place] [address]- 0805 Nov, ADHD (attention deficit hyperactivity disorder), combined type F90.2 ; Anxiety disorder, unspecified type F41.9 ; Depressive disorder, not elsewhere classified F32.9 and Obsessive-compulsive disorder, unspecified type F42.9 [facility] [address] [place] [address] 04776- 9185 Nov, [facility] [id number] [place] [address] 85689- 0940 Oct, ADHD (attention deficit hyperactivity disorder), combined type F90.2 [facility] [id number] [place] [address] 29818- 7954 Oct, [facility] [id number] [place] [address] 72024- 6788 Oct, ADHD (attention deficit hyperactivity disorder), combined type F90.2 [facility] [id number] [place] [address] 93138- 7565 Oct, ADHD (attention deficit hyperactivity disorder), combined type F90.2 ; Anxiety disorder, unspecified type F41.9 ; Depressive disorder, not elsewhere classified F32.9 and Obsessive-compulsive disorder, unspecified type F42.9 [facility] [address], [place] [address]- 0593 Oct, Depressive disorder, not elsewhere classified F32.9 ; Anxiety disorder, unspecified type F41.9 and ADHD (attention deficit hyperactivity disorder), combined type F90.2 IMMUNIZATIONS No Known Immunizations SOCIAL HISTORY Never Assessed REASON FOR VISIT f/u PLAN OF CARE Activity Details Follow Up 4 Weeks Reason: f/u VITAL SIGNS Height 65.5 in 2017-09-10 Weight 128.5 lbs 2017-09-10 Heart Rate 64 bpm 2017-09-10 Respiratory Rate 20 2017-09-10 BMI 21.06 kg/m2 2017-09-10 Blood pressure systolic 128 mmHg 2017-09-10 Blood pressure diastolic 80 mmHg 2017-09-10 MEDICATIONS Medication Instructions Dosage Frequency Start Date End Date Duration Status Adderall 10 mg Orally Once a day in the afternoon 1 tablet Aug, Active Vyvanse 50 mg Orally Once a day in the morning 1 capsule in the morning Aug, Active Flexeril 10 MG Orally Three times a day 1 tablet as needed 8h Active Prozac 40 mg Orally Once a day 1 capsule 24h May, Active Asmanex HFA 200 MCG/ACT Inhalation Twice a day 2 puffs 12h Not- Taking Propranolol HCl 10 mg Orally Twice a day as needed for anxiety 1 tablet Aug, 30 day(s) Active Albuterol Sulfate HFA 108 (90 Base) MCG/ACT Inhalation every 4 hrs 2 puffs as needed 4h Active AZO Urinary Pain Relief 95 MG Orally Three times a day x 3 days 1 tablet Not-Taking Ciprofloxacin 500mg Orally 2 times a day 1 tablet 12h Not-Taking Naproxen 500 MG Orally every 12 hrs 1 tablet as needed 12h Active Depakote 250 MG Orally 2 times a day 1 tablet 12h Not-Taking Hydrocodone-Acetaminophen 5-325 MG Orally every 6 hrs 1 tablet as needed 6h Not-Taking RESULTS No Results PROCEDURES No Known procedures INSTRUCTIONS MEDICATIONS ADMINISTERED No Known Medications MEDICAL (GENERAL) HISTORY Type Description Date Medical History migraines Medical History asthma Medical History Hx of febrile seizure at 18 mos Medical History Denies any hx of heart problem Surgical History C section Surgical History [place] [facility] Hospitalization History Surgery/Child Hospitalization History psychiatric hospitalization 2010
--- OUTSIDE RECORDS SUMMARY | 2018-07-09 17:15 | XMS REPORT ---
Author Author JOSI ARLETH [facility] Address [address] [place] [address] Care Team Providers Care Malt Liquors Sales Representative Name Role Phone JOSIARLETH Unavailable PROBLEMS Type Condition ICD9-CM Code FAH88-HC Code Onset Dates Condition Status SNOMED Code Problem Depressive disorder, not elsewhere classified F32.9 Active 71173272 Problem ADHD (attention deficit hyperactivity disorder), combined type F90.2 Active 82505764 Problem Anxiety disorder, unspecified type F41.9 Active 113533061 ALLERGIES No Information ENCOUNTERS Encounter Location Date Diagnosis [facility] [address] [address]- [address]3 Oct, ADHD (attention deficit hyperactivity disorder), combined type F90.2 [facility] [id number] [place] [address] 77598- 0225 Oct, [facility] [id number] [place] [address] 17146- 8928 September, ADHD (attention deficit hyperactivity disorder), combined type F90.2 [facility] [id number] [place] [address] 52533- 7834 September, [facility] [id number] [place] [address] 11335- 6053 September, ADHD (attention deficit hyperactivity disorder), combined type F90.2 [facility] [address] [address]77- 5402 Aug, ADHD (attention deficit hyperactivity disorder), combined type F90.2 ; Anxiety disorder, unspecified type F41.9 and Depressive disorder, not elsewhere classified F32.9 [facility] [id number] [place] [address] 58053- 4180 Aug, ADHD (attention deficit hyperactivity disorder), combined type F90.2 [facility] [address] [address]- 0662 Jul, [facility] [id number] [place] [address] 42120- 9980 Jul, ADHD (attention deficit hyperactivity disorder), combined type F90.2 [facility] [id number] [place] [address] 95102- 3704 Jun, ADHD (attention deficit hyperactivity disorder), combined type F90.2 [facility] [id number] [place] [address] 68014- 2482 Jun, ADHD (attention deficit hyperactivity disorder), combined type F90.2 [facility] [id number] [place] [address] 83414- 6927 May, ADHD (attention deficit hyperactivity disorder), combined type F90.2 [facility] [id number] [address] 7217 May, [facility] [id number] [place] [address] 43794- 1923 May, ADHD (attention deficit hyperactivity disorder), combined type F90.2 ; Anxiety disorder, unspecified type F41.9 ; Depressive disorder, not elsewhere classified F32.9 and Obsessive-compulsive disorder, unspecified type F42.9 [facility] [address] [place] [address] 24297- 9921 Apr, ADHD (attention deficit hyperactivity disorder), combined type F90.2 [facility] [address] [place] [address] 25604 -0265 Apr, Acute suppurative otitis media of left ear without spontaneous rupture of tympanic membrane, recurrence not specified H66.002 [facility] [address] [address] 4319 Apr, [facility] [id number] [address]- 7847 Mar, [place] [id number] [place] [address] 58553- 0342 Mar, ADHD (attention deficit hyperactivity disorder), combined type F90.2 [place] [id number] [place] [address] 84894- 4027 Feb, ADHD (attention deficit hyperactivity disorder), combined type F90.2 [place] [id number] [place] [address] 84703- 9430 Feb, [place] [id number] [place] [address] 30292- 0096 Jan, ADHD (attention deficit hyperactivity disorder), combined type F90.2 ; Anxiety disorder, unspecified type F41.9 ; Depressive disorder, not elsewhere classified F32.9 and Obsessive-compulsive disorder, unspecified type F42.9 [place] [id number] [place] [address] 64019- 9301 Dec, ADHD (attention deficit hyperactivity disorder), combined type F90.2 ; Anxiety disorder, unspecified type F41.9 ; Depressive disorder, not elsewhere classified F32.9 and Obsessive-compulsive disorder, unspecified type F42.9 [place] [address] [address]- 3432 Dec, [place] [address] [place] [address] 23279- 8293 Nov, ADHD (attention deficit hyperactivity disorder), combined type F90.2 ; Anxiety disorder, unspecified type F41.9 ; Depressive disorder, not elsewhere classified F32.9 and Obsessive-compulsive disorder, unspecified type F42.9 [place] [id number] [place] [address] 02242- 4510 Nov, ADHD (attention deficit hyperactivity disorder), combined type F90.2 ; Anxiety disorder, unspecified type F41.9 ; Depressive disorder, not elsewhere classified F32.9 and Obsessive-compulsive disorder, unspecified type F42.9 [place] [id number] [address]- 5633 Nov, [facility] [address], [place] [address]- 5268 Oct, ADHD (attention deficit hyperactivity disorder), combined type F90.2 [place] [address], [place] [address]- 4917 Oct, [place] [address] [place] [address] 05748- 0323 Oct, ADHD (attention deficit hyperactivity disorder), combined type F90.2 [place] [address] [place] [address] 79047- 5236 Oct, ADHD (attention deficit hyperactivity disorder), combined type F90.2 ; Anxiety disorder, unspecified type F41.9 ; Depressive disorder, not elsewhere classified F32.9 and Obsessive-compulsive disorder, unspecified type F42.9 [place] [id number] [address]- 8262 Oct, Depressive disorder, not elsewhere classified F32.9 ; Anxiety disorder, unspecified type F41.9 and ADHD (attention deficit hyperactivity disorder), combined type F90.2 IMMUNIZATIONS No Known Immunizations SOCIAL HISTORY Never Assessed REASON FOR VISIT PA for Adderall IR PLAN OF CARE VITAL SIGNS MEDICATIONS Unknown Medications RESULTS No Results PROCEDURES No Known procedures INSTRUCTIONS MEDICATIONS ADMINISTERED No Known Medications MEDICAL (GENERAL) HISTORY Type Description Date Medical History migraines Medical History asthma Medical History Hx of febrile seizure at 18 mos Medical History Denies any hx of heart problem Surgical History C section Surgical History [place] [facility] Hospitalization History Surgery/Child Hospitalization History psychiatric hospitalization 2010
--- OUTSIDE RECORDS SUMMARY | 2018-07-09 17:15 | XMS REPORT ---
Author Author JOSI ARLETH [facility] Address [address] [place] [address] Care Team Providers Care Pump Operator Byproducts Name Role Phone ARLETH PRATER Unavailable PROBLEMS Type Condition ICD9-CM Code ALC62-WH Code Onset Dates Condition Status SNOMED Code Problem Depressive disorder, not elsewhere classified F32.9 Active 17765297 Problem ADHD (attention deficit hyperactivity disorder), combined type F90.2 Active 28439722 Problem Anxiety disorder, unspecified type F41.9 Active 571184122 ALLERGIES No Information ENCOUNTERS Encounter Location Date Diagnosis [facility] [id number] [place] [address] 67961- 4053 Nov, ADHD (attention deficit hyperactivity disorder), combined type F90.2 [facility] [id number] [place] [address] 08413- 0940 Oct, ADHD (attention deficit hyperactivity disorder), combined type F90.2 ; Anxiety disorder, unspecified type F41.9 and Depressive disorder, not elsewhere classified F32.9 [facility] [address] [place] [address] 04052- 0018 Oct, ADHD (attention deficit hyperactivity disorder), combined type F90.2 [facility] [id number] [place] [address] 31865- 8319 Oct, [facility] [id number] [place] [address] 38904- 5777 September, ADHD (attention deficit hyperactivity disorder), combined type F90.2 [facility] [id number] [place] [address] 47633- 2890 September, [facility] [id number] [place] [address] 03691- 1905 September, ADHD (attention deficit hyperactivity disorder), combined type F90.2 [facility] [address], [place] [address]- 2167 Aug, ADHD (attention deficit hyperactivity disorder), combined type F90.2 ; Anxiety disorder, unspecified type F41.9 and Depressive disorder, not elsewhere classified F32.9 [facility] [id number] [address]- 9853 Aug, ADHD (attention deficit hyperactivity disorder), combined type F90.2 [facility] [address], [place] [address]- 2869 Jul, [facility] [id number] [place] [address] 96501- 7386 Jul, ADHD (attention deficit hyperactivity disorder), combined type F90.2 [facility] [address], [place] [address]- 8306 16 Jun, 2017 ADHD (attention deficit hyperactivity disorder), combined type F90.2 [facility] [address], [place] [address]- 9166 Jun, ADHD (attention deficit hyperactivity disorder), combined type F90.2 [facility] [address], [place] [address]- 2288 May, ADHD (attention deficit hyperactivity disorder), combined type F90.2 [facility] [address], [place] [address]- 7909 May, [facility] [address], [place] [address]- 2086 May, ADHD (attention deficit hyperactivity disorder), combined type F90.2 ; Anxiety disorder, unspecified type F41.9 ; Depressive disorder, not elsewhere classified F32.9 and Obsessive-compulsive disorder, unspecified type F42.9 [facility] [address], [place] [address]- 2342 Apr, ADHD (attention deficit hyperactivity disorder), combined type F90.2 [facility] [address], [place] [address] Apr, Acute suppurative otitis media of left ear without spontaneous rupture of tympanic membrane, recurrence not specified H66.002 [facility] [address], [place] [address]- 6558 Apr, [facility] [id number] [address]- 5498 Mar, [facility] [address], [place] [address]- 2315 Mar, ADHD (attention deficit hyperactivity disorder), combined type F90.2 [facility] [address], [place] [address]- 0874 Feb, ADHD (attention deficit hyperactivity disorder), combined type F90.2 [facility] [address], [place] [address]- 3255 Feb, [facility] [address], [place] [address]- 9901 Jan, ADHD (attention deficit hyperactivity disorder), combined type F90.2 ; Anxiety disorder, unspecified type F41.9 ; Depressive disorder, not elsewhere classified F32.9 and Obsessive-compulsive disorder, unspecified type F42.9 [facility] [address], [place] [address]- 6382 Dec, ADHD (attention deficit hyperactivity disorder), combined type F90.2 ; Anxiety disorder, unspecified type F41.9 ; Depressive disorder, not elsewhere classified F32.9 and Obsessive-compulsive disorder, unspecified type F42.9 [facility] [address], [place] [address]- 1818 Dec, [facility] [address] [place] [address]- 7628 Nov, ADHD (attention deficit hyperactivity disorder), combined type F90.2 ; Anxiety disorder, unspecified type F41.9 ; Depressive disorder, not elsewhere classified F32.9 and Obsessive-compulsive disorder, unspecified type F42.9 [place] [id number] [place] [address] 92371- 9948 Nov, ADHD (attention deficit hyperactivity disorder), combined type F90.2 ; Anxiety disorder, unspecified type F41.9 ; Depressive disorder, not elsewhere classified F32.9 and Obsessive-compulsive disorder, unspecified type F42.9 [place] [id number] [place] [address] 56070- 0867 Nov, [place] [id number] [place] [address] 61309- 4593 Oct, ADHD (attention deficit hyperactivity disorder), combined type F90.2 [place] [id number] [place] [address] 93310- 8218 Oct, [place] [id number] [place] [address] 14767- 7059 Oct, ADHD (attention deficit hyperactivity disorder), combined type F90.2 [place] [id number] [place] [address] 99298- 3733 Oct, ADHD (attention deficit hyperactivity disorder), combined type F90.2 ; Anxiety disorder, unspecified type F41.9 ; Depressive disorder, not elsewhere classified F32.9 and Obsessive-compulsive disorder, unspecified type F42.9 [place] [id number] [place] [address] 44167- 0880 Oct, Depressive disorder, not elsewhere classified F32.9 ; Anxiety disorder, unspecified type F41.9 and ADHD (attention deficit hyperactivity disorder), combined type F90.2 IMMUNIZATIONS No Known Immunizations SOCIAL HISTORY Never Assessed REASON FOR VISIT Refill request PLAN OF CARE VITAL SIGNS MEDICATIONS Unknown Medications RESULTS No Results PROCEDURES No Known procedures INSTRUCTIONS MEDICATIONS ADMINISTERED No Known Medications MEDICAL (GENERAL) HISTORY Type Description Date Medical History migraines Medical History asthma Medical History Hx of febrile seizure at 18 mos Medical History Denies any hx of heart problem Surgical History C section Surgical History [place] [facility] Hospitalization History Surgery/Child Hospitalization History psychiatric hospitalization 2010
--- OUTSIDE RECORDS SUMMARY | 2018-07-09 17:15 | XMS REPORT ---
Author Author JOSI ARLETH [facility] Address [address] [place] [address] Care Team Providers Care Tool Engineer Name Role Phone ARLETH PRATER Unavailable PROBLEMS Type Condition ICD9-CM Code FHM64-PH Code Onset Dates Condition Status SNOMED Code Problem Depressive disorder, not elsewhere classified F32.9 Active 77408014 Problem ADHD (attention deficit hyperactivity disorder), combined type F90.2 Active 39731392 Problem Anxiety disorder, unspecified type F41.9 Active 218476734 ALLERGIES No Information ENCOUNTERS Encounter Location Date Diagnosis [facility] [id number] [place] [address] 87959- 5288 Nov, ADHD (attention deficit hyperactivity disorder), combined type F90.2 [facility] [id number] [place] [address] 86429- 5386 Oct, ADHD (attention deficit hyperactivity disorder), combined type F90.2 ; Anxiety disorder, unspecified type F41.9 and Depressive disorder, not elsewhere classified F32.9 [facility] [address] [place] [address] 17706- 7542 Oct, ADHD (attention deficit hyperactivity disorder), combined type F90.2 [facility] [id number] [place] [address] 37846- 6201 Oct, [facility] [id number] [place] [address] 27830- 5574 September, ADHD (attention deficit hyperactivity disorder), combined type F90.2 [facility] [id number] [place] [address] 23065- 7819 September, [facility] [id number] [place] [address] 95717- 4480 September, ADHD (attention deficit hyperactivity disorder), combined type F90.2 [facility] [address] [address] 0[address] Aug, ADHD (attention deficit hyperactivity disorder), combined type F90.2 ; Anxiety disorder, unspecified type F41.9 and Depressive disorder, not elsewhere classified F32.9 [facility] [id number] [address] 8[address] Aug, ADHD (attention deficit hyperactivity disorder), combined type F90.2 [facility] [address] [address] 00[address] Jul, [facility] [id number] [place] [address] 47836- 2437 Jul, ADHD (attention deficit hyperactivity disorder), combined type F90.2 [facility] [id number], [place] [address] 0800 16 Jun, 2017 ADHD (attention deficit hyperactivity disorder), combined type F90.2 [facility] [id number] [address] 0534 Jun, ADHD (attention deficit hyperactivity disorder), combined type F90.2 [facility] [id number] [address] 6682 May, ADHD (attention deficit hyperactivity disorder), combined type F90.2 [facility] [id number] [address] 7[address] May, [facility] [id number] [address] 5491 May, ADHD (attention deficit hyperactivity disorder), combined type F90.2 ; Anxiety disorder, unspecified type F41.9 ; Depressive disorder, not elsewhere classified F32.9 and Obsessive-compulsive disorder, unspecified type F42.9 [facility] [id number] [address] 6359 Apr, ADHD (attention deficit hyperactivity disorder), combined type F90.2 [facility] [id number] [address] Apr, Acute suppurative otitis media of left ear without spontaneous rupture of tympanic membrane, recurrence not specified H66.002 [facility] [id number], [place] [address] 1462 Apr, [facility] [id number] [address] 9259 Mar, [facility] [id number] [address]- 9493 Mar, ADHD (attention deficit hyperactivity disorder), combined type F90.2 [facility] [id number] [address]- 9310 Feb, ADHD (attention deficit hyperactivity disorder), combined type F90.2 [facility] [id number] [address]- 8298 Feb, [facility] [id number], [place] [address]- 6158 Jan, ADHD (attention deficit hyperactivity disorder), combined type F90.2 ; Anxiety disorder, unspecified type F41.9 ; Depressive disorder, not elsewhere classified F32.9 and Obsessive-compulsive disorder, unspecified type F42.9 [facility] [address], [place] [address]- 9932 Dec, ADHD (attention deficit hyperactivity disorder), combined type F90.2 ; Anxiety disorder, unspecified type F41.9 ; Depressive disorder, not elsewhere classified F32.9 and Obsessive-compulsive disorder, unspecified type F42.9 [facility] [id number], [place] [address]- 4063 Dec, [facility] [id number] [address] Nov, ADHD (attention deficit hyperactivity disorder), combined type F90.2 ; Anxiety disorder, unspecified type F41.9 ; Depressive disorder, not elsewhere classified F32.9 and Obsessive-compulsive disorder, unspecified type F42.9 [facility] [address] [place] [address] Nov, ADHD (attention deficit hyperactivity disorder), combined type F90.2 ; Anxiety disorder, unspecified type F41.9 ; Depressive disorder, not elsewhere classified F32.9 and Obsessive-compulsive disorder, unspecified type F42.9 [facility] [id number] [place] [address] 66087- 2092 Nov, [facility] [id number] [place] [address] 98488- 1534 Oct, ADHD (attention deficit hyperactivity disorder), combined type F90.2 [facility] [id number] [place] [address] 11603- 0158 Oct, [facility] [id number] [place] [address] 98492- 6208 Oct, ADHD (attention deficit hyperactivity disorder), combined type F90.2 [facility] [id number] [place] [address] 88437- 7589 Oct, ADHD (attention deficit hyperactivity disorder), combined type F90.2 ; Anxiety disorder, unspecified type F41.9 ; Depressive disorder, not elsewhere classified F32.9 and Obsessive-compulsive disorder, unspecified type F42.9 [facility] [address] [place] [address] 22444- 2332 Oct, Depressive disorder, not elsewhere classified F32.9 ; Anxiety disorder, unspecified type F41.9 and ADHD (attention deficit hyperactivity disorder), combined type F90.2 IMMUNIZATIONS No Known Immunizations SOCIAL HISTORY Never Assessed REASON FOR VISIT vyvanse/adderall 08/06/2017 PLAN OF CARE VITAL SIGNS MEDICATIONS Medication Instructions Dosage Frequency Start Date End Date Duration Status Vyvanse 50 mg Orally Once a day in the morning 1 capsule in the morning Jul, 28 days Active Adderall 10 mg Orally Once a day in the afternoon 1 tablet Jul, 28 days Active RESULTS No Results PROCEDURES No Known procedures INSTRUCTIONS MEDICATIONS ADMINISTERED No Known Medications MEDICAL (GENERAL) HISTORY Type Description Date Medical History migraines Medical History asthma Medical History Hx of febrile seizure at 18 mos Medical History Denies any hx of heart problem Surgical History C section Surgical History Hematite Teeth Hospitalization History Surgery/Child Hospitalization History psychiatric hospitalization 2010
--- OUTSIDE RECORDS SUMMARY | 2018-07-09 17:16 | XMS REPORT ---
Author Author JOSI ARLETH [facility] Address [address] [place] [address] Care Team Providers Care Traffic Chief Name Role Phone JOSI, ARLETH Unavailable PROBLEMS Type Condition ICD9-CM Code [id number] Code Onset Dates Condition Status SNOMED Code Problem Depressive disorder, not elsewhere classified F32.9 Active 68574118 Problem ADHD (attention deficit hyperactivity disorder), combined type F90.2 Active 21418795 Problem Anxiety disorder, unspecified type F41.9 Active 939089173 ALLERGIES Substance Reaction Event Type Date Status Strattera Numbness/Heart Rate Increased/SOA Drug Allergy Oct, Active ENCOUNTERS Encounter Location Date Diagnosis [facility] [address] [place] [address] 82673- 1248 Aug, [facility] [id number] [place] [address] 38095- 6527 Jul, [facility] [id number] [place] [address] 43420- 1457 Jul, ADHD (attention deficit hyperactivity disorder), combined type F90.2 [facility] [id number] [place] [address] 24352- 9489 Jun, ADHD (attention deficit hyperactivity disorder), combined type F90.2 [facility] [address] [address]- 0041 Jun, ADHD (attention deficit hyperactivity disorder), combined type F90.2 [facility] [id number] [place] [address] 69044- 9203 May, ADHD (attention deficit hyperactivity disorder), combined type F90.2 [facility] [id number] [place] [address] 84279- 3150 May, [facility] [address] [address]- 5058 May, ADHD (attention deficit hyperactivity disorder), combined type F90.2 ; Anxiety disorder, unspecified type F41.9 ; Depressive disorder, not elsewhere classified F32.9 and Obsessive-compulsive disorder, unspecified type F42.9 [facility] [id number] [place] [address] 84421- 8298 Apr, ADHD (attention deficit hyperactivity disorder), combined type F90.2 [facility] [id number] [place] [address] 72241 -1931 Apr, Acute suppurative otitis media of left ear without spontaneous rupture of tympanic membrane, recurrence not specified H66.002 [facility] [id number] [address]- 5382 Apr, [facility] [id number] [place] [address] 22709- 3309 Mar, [facility] [id number] [place] [address] 45104- 5118 Mar, ADHD (attention deficit hyperactivity disorder), combined type F90.2 [facility] [address] [address]- 5909 Feb, ADHD (attention deficit hyperactivity disorder), combined type F90.2 [facility] [id number] [address]- 8266 Feb, [facility] [id number] [place] [address] 18547- 6009 Jan, ADHD (attention deficit hyperactivity disorder), combined type F90.2 ; Anxiety disorder, unspecified type F41.9 ; Depressive disorder, not elsewhere classified F32.9 and Obsessive-compulsive disorder, unspecified type F42.9 [facility] [address], [place] [address]- 6315 Dec, ADHD (attention deficit hyperactivity disorder), combined type F90.2 ; Anxiety disorder, unspecified type F41.9 ; Depressive disorder, not elsewhere classified F32.9 and Obsessive-compulsive disorder, unspecified type F42.9 [facility] [address], [place] [address]- 4035 Dec, [facility] [address], [place] [address]- 1355 Nov, ADHD (attention deficit hyperactivity disorder), combined type F90.2 ; Anxiety disorder, unspecified type F41.9 ; Depressive disorder, not elsewhere classified F32.9 and Obsessive-compulsive disorder, unspecified type F42.9 [facility] [address] [place] [address] 02822- 6778 Nov, ADHD (attention deficit hyperactivity disorder), combined type F90.2 ; Anxiety disorder, unspecified type F41.9 ; Depressive disorder, not elsewhere classified F32.9 and Obsessive-compulsive disorder, unspecified type F42.9 [facility] [address] [address]- 4990 Nov, [facility] [id number] [place] [address] 78526- 5022 Oct, ADHD (attention deficit hyperactivity disorder), combined type F90.2 [facility] [address], [place] [address]- 5676 Oct, [facility] [address] [address]- 9240 Oct, ADHD (attention deficit hyperactivity disorder), combined type F90.2 [facility] [id number] [address]- 3378 Oct, ADHD (attention deficit hyperactivity disorder), combined type F90.2 ; Anxiety disorder, unspecified type F41.9 ; Depressive disorder, not elsewhere classified F32.9 and Obsessive-compulsive disorder, unspecified type F42.9 [facility] [address] [address]- 2311 Oct, Depressive disorder, not elsewhere classified F32.9 ; Anxiety disorder, unspecified type F41.9 and ADHD (attention deficit hyperactivity disorder), combined type F90.2 IMMUNIZATIONS No Known Immunizations SOCIAL HISTORY Never Assessed REASON FOR VISIT intake - David GUERRERO, We do not have any previous records from PCP Dr. Youssef or Dr. Varghese. Per [facility] picks up Klonopin regularly (last pickling operator ) and Hydrocodone regularly (last pickling operator 11/05/16), This MA called [facility] to get a current medication list. They are faxing it. PLAN OF CARE Activity Details Follow Up 4 Weeks Reason: med f/u appointment VITAL SIGNS Height 65.5 in 2016-11-20 Weight 155.7 lbs 2016-11-20 Heart Rate 124 bpm 2016-11-20 Respiratory Rate 20 2016-11-20 BMI 25.51 kg/m2 2016-11-20 Blood pressure systolic 130 mmHg 2016-11-20 Blood pressure diastolic 63 mmHg 2016-11-20 MEDICATIONS Medication Instructions Dosage Frequency Start Date End Date Duration Status Depakote 250 MG Orally 2 times a day 1 tablet 12h Active Flexeril 10 MG Orally Three times a day 1 tablet as needed 8h Active Naproxen 500 MG Orally every 12 hrs 1 tablet as needed 12h Active Prozac 20 mg Orally twice a day 1 capsule 12h 30 days Active Asmanex HFA 200 MCG/ACT Inhalation Twice a day 2 puffs 12h Active Albuterol Sulfate HFA 108 (90 Base) MCG/ACT Inhalation every 4 hrs 2 puffs as needed 4h Active HydrOXYzine HCl 25 MG Orally twice a day as needed for sleep/anxiety 1/2 to 1 tablet Oct, 30 day(s) Active Adderall XR 10 mg Orally Once a day 1 capsule in the morning 24h Oct, 28 days Active RESULTS Name Result Date Reference Range URINE DRUG SCREEN (IN HOUSE) 2016-11-20 Lot # [id number] Exp date Control + COCAINE Negative AMPH Negative MTD Negative THC Negative OPIATE Negative BENZO Negative PCP Negative BAR Negative OXY Negative MAMP Negative TCA BUP Negative MDMA Negative PROCEDURES Procedure Date Ordered Result Body Site LAB NOT BILLED BY [employer] November 20, 2016 Billing Notes on claim November 20, 2016 INSTRUCTIONS MEDICATIONS ADMINISTERED No Known Medications MEDICAL (GENERAL) HISTORY Type Description Date Medical History migraines Medical History asthma Medical History Hx of febrile seizure at 18 mos Medical History Denies any hx of heart problem Surgical History C section Surgical History [facility] Hospitalization History Surgery/Child Hospitalization History psychiatric hospitalization 2010
--- OUTSIDE RECORDS SUMMARY | 2018-07-09 17:16 | XMS REPORT ---
Author Author JOSI ARLETH [facility] Address [address] [place] [address] Care Team Providers Care Oil Process Stillman Name Role Phone JOSIARLETH Unavailable PROBLEMS Type Condition ICD9-CM Code HNO01-KE Code Onset Dates Condition Status SNOMED Code Problem Depressive disorder, not elsewhere classified F32.9 Active 49915110 Problem ADHD (attention deficit hyperactivity disorder), combined type F90.2 Active 58799761 Problem Anxiety disorder, unspecified type F41.9 Active 678375848 ALLERGIES No Information ENCOUNTERS Encounter Location Date Diagnosis [facility] [id number] [place] [address] 51639- 9203 Oct, [facility] [id number] [place] [address] 94537- 7897 Oct, ADHD (attention deficit hyperactivity disorder), combined type F90.2 [facility] [id number] [place] [address] 47850- 0744 Oct, [facility] [id number] [place] [address] 10241- 1865 September, ADHD (attention deficit hyperactivity disorder), combined type F90.2 [facility] [id number] [place] [address] 19448- 6097 September, [facility] [id number] [place] [address] 65421- 9886 September, ADHD (attention deficit hyperactivity disorder), combined type F90.2 [facility] [id number] [place] [address] 23255- 0457 Aug, ADHD (attention deficit hyperactivity disorder), combined type F90.2 ; Anxiety disorder, unspecified type F41.9 and Depressive disorder, not elsewhere classified F32.9 [facility] [id number], [place] [address]- 2756 Aug, ADHD (attention deficit hyperactivity disorder), combined type F90.2 [facility] [id number], [place] [address]- 9184 Jul, [facility] [id number] [place] [address] 13345- 0837 Jul, ADHD (attention deficit hyperactivity disorder), combined type F90.2 [facility] [id number], [place] [address]- 9366 Jun, ADHD (attention deficit hyperactivity disorder), combined type F90.2 [facility] [id number] [place] [address] 00010- 7164 Jun, ADHD (attention deficit hyperactivity disorder), combined type F90.2 [facility] [address] [place] [address] 22918- 1995 May, ADHD (attention deficit hyperactivity disorder), combined type F90.2 [facility] [address] [place] [address] 03407- 4758 May, [facility] [address] [place] [address] 78284- 1848 May, ADHD (attention deficit hyperactivity disorder), combined type F90.2 ; Anxiety disorder, unspecified type F41.9 ; Depressive disorder, not elsewhere classified F32.9 and Obsessive-compulsive disorder, unspecified type F42.9 [facility] [address], [place] [address]- 3620 Apr, ADHD (attention deficit hyperactivity disorder), combined type F90.2 [facility] [address] [place] [address] 17529 -8145 Apr, Acute suppurative otitis media of left ear without spontaneous rupture of tympanic membrane, recurrence not specified H66.002 [facility] [id number] [place] [address]- 3853 Apr, [facility] [id number], [place] [address]- 0053 Mar, [facility] [id number], [place] [address]- 4506 Mar, ADHD (attention deficit hyperactivity disorder), combined type F90.2 [facility] [id number] [place] [address]- 8627 Feb, ADHD (attention deficit hyperactivity disorder), combined type F90.2 [facility] [id number] [place] [address]- 0959 Feb, [facility] [id number], [place] [address]- 2395 Jan, ADHD (attention deficit hyperactivity disorder), combined type F90.2 ; Anxiety disorder, unspecified type F41.9 ; Depressive disorder, not elsewhere classified F32.9 and Obsessive-compulsive disorder, unspecified type F42.9 [facility] [address] [place] [address]- 6838 Dec, ADHD (attention deficit hyperactivity disorder), combined type F90.2 ; Anxiety disorder, unspecified type F41.9 ; Depressive disorder, not elsewhere classified F32.9 and Obsessive-compulsive disorder, unspecified type F42.9 [facility] [address], [place] [address]- 5277 Dec, [facility] [id number] [place] [address]- 6372 Nov, ADHD (attention deficit hyperactivity disorder), combined type F90.2 ; Anxiety disorder, unspecified type F41.9 ; Depressive disorder, not elsewhere classified F32.9 and Obsessive-compulsive disorder, unspecified type F42.9 [facility] [address] [place] [address]- 2019 Nov, ADHD (attention deficit hyperactivity disorder), combined type F90.2 ; Anxiety disorder, unspecified type F41.9 ; Depressive disorder, not elsewhere classified F32.9 and Obsessive-compulsive disorder, unspecified type F42.9 [facility] [address] [place] [address]- 4862 Nov, [facility] [id number] [place] [address]- 9075 Oct, ADHD (attention deficit hyperactivity disorder), combined type F90.2 [facility] [id number], [place] [address]- 1395 Oct, [facility] [id number], [place] [address]- 7892 Oct, ADHD (attention deficit hyperactivity disorder), combined type F90.2 [facility] [id number] [place] [address]- 6837 Oct, ADHD (attention deficit hyperactivity disorder), combined type F90.2 ; Anxiety disorder, unspecified type F41.9 ; Depressive disorder, not elsewhere classified F32.9 and Obsessive-compulsive disorder, unspecified type F42.9 [facility] [address] [place] [address]- 3482 Oct, Depressive disorder, not elsewhere classified F32.9 ; Anxiety disorder, unspecified type F41.9 and ADHD (attention deficit hyperactivity disorder), combined type F90.2 IMMUNIZATIONS No Known Immunizations SOCIAL HISTORY Never Assessed REASON FOR VISIT vyvanse 06/16/2017 PLAN OF CARE VITAL SIGNS MEDICATIONS Medication Instructions Dosage Frequency Start Date End Date Duration Status Vyvanse 50 mg Orally Once a day in the morning 1 capsule in the morning May, 28 days Active RESULTS No Results PROCEDURES No Known procedures INSTRUCTIONS MEDICATIONS ADMINISTERED No Known Medications MEDICAL (GENERAL) HISTORY Type Description Date Medical History migraines Medical History asthma Medical History Hx of febrile seizure at 18 mos Medical History Denies any hx of heart problem Surgical History C section Surgical History [facility] Hospitalization History Surgery/Child Hospitalization History psychiatric hospitalization 2010
--- OUTSIDE RECORDS SUMMARY | 2018-07-09 17:16 | XMS REPORT ---
Author Author JOSI ARLETH [facility] Address [address] [place] [address] Care Team Providers Care Acidizer Water Well Name Role Phone Ally PRATERYEN Unavailable PROBLEMS Type Condition ICD9-CM Code BTS51-JH Code Onset Dates Condition Status SNOMED Code Problem Depressive disorder, not elsewhere classified F32.9 Active 83535191 Problem ADHD (attention deficit hyperactivity disorder), combined type F90.2 Active 51114038 Problem Anxiety disorder, unspecified type F41.9 Active [id number] ALLERGIES Substance Reaction Event Type Date Status Strattera Numbness/Heart Rate Increased/SOA Drug Allergy May, Active ENCOUNTERS Encounter Location Date Diagnosis [place] [id number] [place] [address] 23493- 4376 Oct, ADHD (attention deficit hyperactivity disorder), combined type F90.2 [place] [address] [place] [id number] [place] [address] 47251- 0288 Oct, [facility] [address] [place] [id number] [place] [address] 76789- 5938 September, ADHD (attention deficit hyperactivity disorder), combined type F90.2 [facility] [address] [place] [address] 29645- 5334 September, [facility] [address] [place] [id number] [place] [address] 85823- 4125 September, ADHD (attention deficit hyperactivity disorder), combined type F90.2 [facility] [address] [place] [address] 27241- 3049 Aug, ADHD (attention deficit hyperactivity disorder), combined type F90.2 ; Anxiety disorder, unspecified type F41.9 and Depressive disorder, not elsewhere classified F32.9 [place] [address] [address] Aug, ADHD (attention deficit hyperactivity disorder), combined type F90.2 [facility] [address] [place] [address] Jul, [facility] [address] [place] [address] Jul, ADHD (attention deficit hyperactivity disorder), combined type F90.2 [facility] [address] [address] Jun, ADHD (attention deficit hyperactivity disorder), combined type F90.2 [facility] [address] [place] [address] [id number] [place] [address] 62987- 2816 Jun, ADHD (attention deficit hyperactivity disorder), combined type F90.2 [facility] [address] [place] [address] 8[address] May, ADHD (attention deficit hyperactivity disorder), combined type F90.2 [facility] [address] [address] May, [facility] [address] [place] [address] 13473- 3729 May, ADHD (attention deficit hyperactivity disorder), combined type F90.2 ; Anxiety disorder, unspecified type F41.9 ; Depressive disorder, not elsewhere classified F32.9 and Obsessive-compulsive disorder, unspecified type F42.9 [facility] [address] [place] [address] Apr, ADHD (attention deficit hyperactivity disorder), combined type F90.2 [facility] [address] [address] Apr, Acute suppurative otitis media of left ear without spontaneous rupture of tympanic membrane, recurrence not specified H66.002 [facility] [address] [place] [address] 11045- 1683 Apr, [facility] [address] [place] [address] Mar, [facility] [address] [place] [address] 6[address] Mar, ADHD (attention deficit hyperactivity disorder), combined type F90.2 [facility] [address] [place] [address] 2859 Feb, ADHD (attention deficit hyperactivity disorder), combined type F90.2 [facility] [address] [place] [address] 3[address] Feb, [facility] [address] [place] [address] 69162- 4557 Jan, ADHD (attention deficit hyperactivity disorder), combined type F90.2 ; Anxiety disorder, unspecified type F41.9 ; Depressive disorder, not elsewhere classified F32.9 and Obsessive-compulsive disorder, unspecified type F42.9 [place] [address] [address] Dec, ADHD (attention deficit hyperactivity disorder), combined type F90.2 ; Anxiety disorder, unspecified type F41.9 ; Depressive disorder, not elsewhere classified F32.9 and Obsessive-compulsive disorder, unspecified type F42.9 [facility] [address] [place] [address] Dec, [facility] [address] [place] [address] 8[address] Nov, ADHD (attention deficit hyperactivity disorder), combined type F90.2 ; Anxiety disorder, unspecified type F41.9 ; Depressive disorder, not elsewhere classified F32.9 and Obsessive-compulsive disorder, unspecified type F42.9 [facility] [address], [place] [address] Nov, ADHD (attention deficit hyperactivity disorder), combined type F90.2 ; Anxiety disorder, unspecified type F41.9 ; Depressive disorder, not elsewhere classified F32.9 and Obsessive-compulsive disorder, unspecified type F42.9 [facility] [address] [id number] [address] Nov, [facility] [address], [place] [address] Oct, ADHD (attention deficit hyperactivity disorder), combined type F90.2 [facility] [address], [place] [address] 2857 Oct, [facility] [address], [place] [address] 1389 Oct, ADHD (attention deficit hyperactivity disorder), combined type F90.2 [place] [address], [place] [address] Oct, ADHD (attention deficit hyperactivity disorder), combined type F90.2 ; Anxiety disorder, unspecified type F41.9 ; Depressive disorder, not elsewhere classified F32.9 and Obsessive-compulsive disorder, unspecified type F42.9 [facility] [address], [place] [address] Oct, Depressive disorder, not elsewhere classified F32.9 ; Anxiety disorder, unspecified type F41.9 and ADHD (attention deficit hyperactivity disorder), combined type F90.2 IMMUNIZATIONS No Known Immunizations SOCIAL HISTORY Never Assessed REASON FOR VISIT f/u PLAN OF CARE Activity Details Follow Up 2 Months Reason: f/u VITAL SIGNS Height 65.5 in 2017-06-05 Weight 128.4 lbs 2017-06-05 Heart Rate 84 bpm 2017-06-05 Respiratory Rate 20 2017-06-05 BMI 21.04 kg/m2 2017-06-05 Blood pressure systolic 128 mmHg 2017-06-05 Blood pressure diastolic 84 mmHg 2017-06-05 MEDICATIONS Medication Instructions Dosage Frequency Start Date End Date Duration Status Vyvanse 50 mg Orally Once a day in the morning 1 capsule in the morning Apr, Active HydrOXYzine HCl 25 MG Orally twice a day as needed for sleep/anxiety 1/2 to 1 tablet Active AZO Urinary Pain Relief 95 MG Orally Three times a day x 3 days 1 tablet Active Ciprofloxacin 500mg Orally 2 times a day 1 tablet 12h Active Naproxen 500 MG Orally every 12 hrs 1 tablet as needed 12h Active Albuterol Sulfate HFA 108 (90 Base) MCG/ACT Inhalation every 4 hrs 2 puffs as needed 4h Active Depakote 250 MG Orally 2 times a day 1 tablet 12h Not-Taking Prozac 40 mg Orally Once a day 1 capsule 24h May, 30 day(s) Active Flexeril 10 MG Orally Three times a day 1 tablet as needed 8h Active Hydrocodone-Acetaminophen 5-325 MG Orally every 6 hrs 1 tablet as needed 6h Not-Taking Adderall 10 mg Orally Once a day in the afternoon 1 tablet May, 28 days Active Asmanex HFA 200 MCG/ACT Inhalation Twice a day 2 puffs 12h Active RESULTS No Results PROCEDURES No Known procedures INSTRUCTIONS MEDICATIONS ADMINISTERED No Known Medications MEDICAL (GENERAL) HISTORY Type Description Date Medical History migraines Medical History asthma Medical History Hx of febrile seizure at 18 mos Medical History Denies any hx of heart problem Surgical History C section Surgical History [place] [facility] Hospitalization History Surgery/Child Hospitalization History psychiatric hospitalization 2010
--- OUTSIDE RECORDS SUMMARY | 2018-07-09 17:16 | XMS REPORT ---
Author Author JOSI ARLETH [facility] Address [address] [place] [address] Care Team Providers Care Aircraft Maintenance Technician Name Role Phone ARLETH PRATER Unavailable PROBLEMS Type Condition ICD9-CM Code IKN11-RE Code Onset Dates Condition Status SNOMED Code Problem Depressive disorder, not elsewhere classified F32.9 Active 39006374 Problem ADHD (attention deficit hyperactivity disorder), combined type F90.2 Active 66904552 Problem Anxiety disorder, unspecified type F41.9 Active 803532917 ALLERGIES No Information ENCOUNTERS Encounter Location Date Diagnosis [facility] [address] [place] [id number] [place] [address] 52764- 6408 Oct, ADHD (attention deficit hyperactivity disorder), combined type F90.2 ; Anxiety disorder, unspecified type F41.9 and Depressive disorder, not elsewhere classified F32.9 [facility] [address] [place] [id number] [place] [address] 54457- 0185 Oct, ADHD (attention deficit hyperactivity disorder), combined type F90.2 [facility] [address] [place] [id number] [place] [address] 93019- 9468 Oct, [facility] [address] [place] [id number] [place] [address] 46450- 3726 September, ADHD (attention deficit hyperactivity disorder), combined type F90.2 [facility] [address] [place] [id number] [place] [address] 81853- 8620 September, [facility] [address] [place] [id number] [place] [address] 26351- 1460 September, ADHD (attention deficit hyperactivity disorder), combined type F90.2 [facility] [address] [place] [id number] [place] [address] 63674- 9036 Aug, ADHD (attention deficit hyperactivity disorder), combined type F90.2 ; Anxiety disorder, unspecified type F41.9 and Depressive disorder, not elsewhere classified F32.9 [facility] [address] [place] [address] 42473- 1008 Aug, ADHD (attention deficit hyperactivity disorder), combined type F90.2 [facility] [address] [place] [id number] [place] [address] 90995- 4673 Jul, [facility] [address] [place] [id number] [place] [address] 24863- 3747 Jul, ADHD (attention deficit hyperactivity disorder), combined type F90.2 [place] [address] [place] [id number] [place] [address] 53308- 8615 Jun, ADHD (attention deficit hyperactivity disorder), combined type F90.2 [place] [address] [place] [id number] [place] [address] 46747- 2671 Jun, ADHD (attention deficit hyperactivity disorder), combined type F90.2 [facility] [address] [place] [id number] [place] [address] 44626- 4095 May, ADHD (attention deficit hyperactivity disorder), combined type F90.2 [facility] [address] [place] [address] 97537- 8871 May, [facility] [address] [place] [id number] [place] [address] 40665- 4384 May, ADHD (attention deficit hyperactivity disorder), combined type F90.2 ; Anxiety disorder, unspecified type F41.9 ; Depressive disorder, not elsewhere classified F32.9 and Obsessive-compulsive disorder, unspecified type F42.9 [facility] [address] [place] [address] 67489- 9054 Apr, ADHD (attention deficit hyperactivity disorder), combined type F90.2 [facility] [address], [place] [address] Apr, Acute suppurative otitis media of left ear without spontaneous rupture of tympanic membrane, recurrence not specified H66.002 [facility] [address], [place] [address]- 2911 Apr, [facility] [address] [place] [address]- 9471 Mar, [facility] [address] [place] [id number] [place] [address] 03925- 3665 Mar, ADHD (attention deficit hyperactivity disorder), combined type F90.2 [facility] [address] [place] [id number] [place] [address] 27922- 2271 Feb, ADHD (attention deficit hyperactivity disorder), combined type F90.2 [facility] [address] [place] [id number] [address]- 8544 Feb, [facility] [address] [place] [id number] [place] [address] 11819- 4988 Jan, ADHD (attention deficit hyperactivity disorder), combined type F90.2 ; Anxiety disorder, unspecified type F41.9 ; Depressive disorder, not elsewhere classified F32.9 and Obsessive-compulsive disorder, unspecified type F42.9 [place] [address], [place] [address]- [address] Dec, ADHD (attention deficit hyperactivity disorder), combined type F90.2 ; Anxiety disorder, unspecified type F41.9 ; Depressive disorder, not elsewhere classified F32.9 and Obsessive-compulsive disorder, unspecified type F42.9 [facility] [address], [place] [address]- 6309 Dec, [facility] [address] [place] [address] 95902- 4593 Nov, ADHD (attention deficit hyperactivity disorder), combined type F90.2 ; Anxiety disorder, unspecified type F41.9 ; Depressive disorder, not elsewhere classified F32.9 and Obsessive-compulsive disorder, unspecified type F42.9 [facility] [address] [id number] [address]- 8413 Nov, ADHD (attention deficit hyperactivity disorder), combined type F90.2 ; Anxiety disorder, unspecified type F41.9 ; Depressive disorder, not elsewhere classified F32.9 and Obsessive-compulsive disorder, unspecified type F42.9 [place] [address], [place] [address]- 0433 Nov, [place] [address] [place] [id number] [place] [address] 15949- 4515 Oct, ADHD (attention deficit hyperactivity disorder), combined type F90.2 [place] [address] [place] [id number] [place] [address] 684385- 6042 Oct, [place] [address] [place] [id number] [place] [address] 48788- 4978 Oct, ADHD (attention deficit hyperactivity disorder), combined type F90.2 [place] [address] [place] [id number] [place] [address]- 4390 Oct, ADHD (attention deficit hyperactivity disorder), combined type F90.2 ; Anxiety disorder, unspecified type F41.9 ; Depressive disorder, not elsewhere classified F32.9 and Obsessive-compulsive disorder, unspecified type F42.9 [place] [address], [place] [address]- 9038 Oct, Depressive disorder, not elsewhere classified F32.9 ; Anxiety disorder, unspecified type F41.9 and ADHD (attention deficit hyperactivity disorder), combined type F90.2 IMMUNIZATIONS No Known Immunizations SOCIAL HISTORY Never Assessed REASON FOR VISIT other PLAN OF CARE VITAL SIGNS MEDICATIONS Medication Instructions Dosage Frequency Start Date End Date Duration Status Vyvanse 50 mg Orally Once a day in the morning 1 capsule in the morning Jun, 28 days Active Adderall 10 mg Orally Once a day in the afternoon 1 tablet Jun, 28 days Active RESULTS No Results PROCEDURES No Known procedures INSTRUCTIONS MEDICATIONS ADMINISTERED No Known Medications MEDICAL (GENERAL) HISTORY Type Description Date Medical History migraines Medical History asthma Medical History Hx of febrile seizure at 18 mos Medical History Denies any hx of heart problem Surgical History C section Surgical History [place] [facility] Hospitalization History Surgery/Child Hospitalization History psychiatric hospitalization 2010
--- OUTSIDE RECORDS SUMMARY | 2018-07-09 17:16 | XMS REPORT ---
Author Author JOSI ARLETH [facility] Address [address] [place] [address] Care Team Providers Care Civil Division Deputy Sheriff Name Role Phone JOSIARLETH Unavailable PROBLEMS Type Condition ICD9-CM Code [id number] Code Onset Dates Condition Status SNOMED Code Problem Depressive disorder, not elsewhere classified F32.9 Active 86858281 Problem ADHD (attention deficit hyperactivity disorder), combined type F90.2 Active 57686219 Problem Anxiety disorder, unspecified type F41.9 Active 348456247 ALLERGIES No Information ENCOUNTERS Encounter Location Date Diagnosis [facility] [address] [address] Oct, [facility] [address] [address] September, ADHD (attention deficit hyperactivity disorder), combined type F90.2 [facility] [id number] [place] [address]15- 6252 September, [facility] [id number] [place] [address] 36344- 5115 September, ADHD (attention deficit hyperactivity disorder), combined type F90.2 [facility] [id number] [place] [address] 60415- 0842 Aug, ADHD (attention deficit hyperactivity disorder), combined type F90.2 ; Anxiety disorder, unspecified type F41.9 and Depressive disorder, not elsewhere classified F32.9 [facility] [id number] [place] [address] 78566- 4185 Aug, ADHD (attention deficit hyperactivity disorder), combined type F90.2 [facility] [id number] [place] [address] 77495- 2779 Jul, [facility] [address] [address] Jul, ADHD (attention deficit hyperactivity disorder), combined type F90.2 [facility] [address] [address] Jun, ADHD (attention deficit hyperactivity disorder), combined type F90.2 [facility] [id number] [place] [address] 35298- 9466 Jun, ADHD (attention deficit hyperactivity disorder), combined type F90.2 [facility] [id number] [place] [address] 34494- 1590 May, ADHD (attention deficit hyperactivity disorder), combined type F90.2 [facility] [id number] [place] [address] 99448- 6630 May, [facility] [id number] [place] [address] 72348- 3457 May, ADHD (attention deficit hyperactivity disorder), combined type F90.2 ; Anxiety disorder, unspecified type F41.9 ; Depressive disorder, not elsewhere classified F32.9 and Obsessive-compulsive disorder, unspecified type F42.9 [facility] [address] [address] Apr, ADHD (attention deficit hyperactivity disorder), combined type F90.2 [facility] [address] [place] [address]72 -9110 Apr, Acute suppurative otitis media of left ear without spontaneous rupture of tympanic membrane, recurrence not specified H66.002 [facility] [id number] [place] [address] 37166- 6933 Apr, [facility] [address] [address] 86[address] Mar, [facility] [id number] [place] [address] 42924- 2498 Mar, ADHD (attention deficit hyperactivity disorder), combined type F90.2 [facility] [address] [address] 1108 Feb, ADHD (attention deficit hyperactivity disorder), combined type F90.2 [facility] [address] [address] 2[address] Feb, [facility] [id number] [place] [address] 34959- 4063 Jan, ADHD (attention deficit hyperactivity disorder), combined type F90.2 ; Anxiety disorder, unspecified type F41.9 ; Depressive disorder, not elsewhere classified F32.9 and Obsessive-compulsive disorder, unspecified type F42.9 [facility] [address] [address] Dec, ADHD (attention deficit hyperactivity disorder), combined type F90.2 ; Anxiety disorder, unspecified type F41.9 ; Depressive disorder, not elsewhere classified F32.9 and Obsessive-compulsive disorder, unspecified type F42.9 [facility] [address] [address] Dec, [facility] [address] [place] [address] 35201- 3887 Nov, ADHD (attention deficit hyperactivity disorder), combined type F90.2 ; Anxiety disorder, unspecified type F41.9 ; Depressive disorder, not elsewhere classified F32.9 and Obsessive-compulsive disorder, unspecified type F42.9 [facility] [address] [address] Nov, ADHD (attention deficit hyperactivity disorder), combined type F90.2 ; Anxiety disorder, unspecified type F41.9 ; Depressive disorder, not elsewhere classified F32.9 and Obsessive-compulsive disorder, unspecified type F42.9 [facility] [address], [place] [address] 2[address] Nov, [facility] [id number] [place] [address] 19727- 4825 Oct, ADHD (attention deficit hyperactivity disorder), combined type F90.2 [facility] [id number] [address] 4[address] Oct, [facility] [id number] [address] 74[address] Oct, ADHD (attention deficit hyperactivity disorder), combined type F90.2 [place] [id number] [address] Oct, ADHD (attention deficit hyperactivity disorder), combined type F90.2 ; Anxiety disorder, unspecified type F41.9 ; Depressive disorder, not elsewhere classified F32.9 and Obsessive-compulsive disorder, unspecified type F42.9 [place] [address] [facility] [id number] [address] Oct, Depressive disorder, not elsewhere classified F32.9 ; Anxiety disorder, unspecified type F41.9 and ADHD (attention deficit hyperactivity disorder), combined type F90.2 IMMUNIZATIONS No Known Immunizations SOCIAL HISTORY Never Assessed REASON FOR VISIT vyvanse 05/14/2017 PLAN OF CARE VITAL SIGNS MEDICATIONS Medication Instructions Dosage Frequency Start Date End Date Duration Status Vyvanse 50 mg Orally Once a day in the morning 1 capsule in the morning Apr, 28 days Active RESULTS No Results PROCEDURES No Known procedures INSTRUCTIONS MEDICATIONS ADMINISTERED No Known Medications MEDICAL (GENERAL) HISTORY Type Description Date Medical History migraines Medical History asthma Medical History Hx of febrile seizure at 18 mos Medical History Denies any hx of heart problem Surgical History C section Surgical History [facility] Hospitalization History Surgery/Child Hospitalization History psychiatric hospitalization 2010
--- OUTSIDE RECORDS SUMMARY | 2018-07-09 17:16 | XMS REPORT ---
Author Author JOSI ARLETH [facility] Address [address] [place] [address] Care Team Providers Care Home Theatre Technician Name Role Phone JOSI, ARLETH Unavailable PROBLEMS Type Condition ICD9-CM Code [id number] Code Onset Dates Condition Status SNOMED Code Problem Depressive disorder, not elsewhere classified F32.9 Active 60686550 Problem ADHD (attention deficit hyperactivity disorder), combined type F90.2 Active 01506806 Problem Anxiety disorder, unspecified type F41.9 Active 617370510 ALLERGIES Substance Reaction Event Type Date Status Strattera Numbness/Heart Rate Increased/SOA Drug Allergy Dec, Active ENCOUNTERS Encounter Location Date Diagnosis [facility] [id number] [place] [address]47- 5792 September, [facility] [id number] [place] [address] 56866- 3879 Aug, ADHD (attention deficit hyperactivity disorder), combined type F90.2 ; Anxiety disorder, unspecified type F41.9 and Depressive disorder, not elsewhere classified F32.9 [facility] [address] [place] [address] 62150- 3941 Aug, ADHD (attention deficit hyperactivity disorder), combined type F90.2 [facility] [id number] [place] [address] 98149- 9013 Jul, [facility] [id number] [place] [address] 80165- 7120 Jul, ADHD (attention deficit hyperactivity disorder), combined type F90.2 [facility] [address] [place] [address] 47562- 7622 Jun, ADHD (attention deficit hyperactivity disorder), combined type F90.2 [place] [address], [place] [address]- 4[address] Jun, ADHD (attention deficit hyperactivity disorder), combined type F90.2 [facility] [address], [place] [address]- 6284 May, ADHD (attention deficit hyperactivity disorder), combined type F90.2 [facility] [id number] [place] [address] 60747- 9741 May, [facility] [address], [place] [address]- 5628 May, ADHD (attention deficit hyperactivity disorder), combined type F90.2 ; Anxiety disorder, unspecified type F41.9 ; Depressive disorder, not elsewhere classified F32.9 and Obsessive-compulsive disorder, unspecified type F42.9 [facility] [address], [place] [address]- 2632 Apr, ADHD (attention deficit hyperactivity disorder), combined type F90.2 [facility] [address], [place] [address] Apr, Acute suppurative otitis media of left ear without spontaneous rupture of tympanic membrane, recurrence not specified H66.002 [facility] [address], [place] [address]- 0427 Apr, [facility] [address], [place] [address]- 2089 Mar, [facility] [address], [place] [address]- 2784 Mar, ADHD (attention deficit hyperactivity disorder), combined type F90.2 [facility] [address], [place] [address]- 9036 Feb, ADHD (attention deficit hyperactivity disorder), combined type F90.2 [facility] [address], [place] [address]- 5719 Feb, [facility] [address], [place] [address]- 9274 Jan, ADHD (attention deficit hyperactivity disorder), combined type F90.2 ; Anxiety disorder, unspecified type F41.9 ; Depressive disorder, not elsewhere classified F32.9 and Obsessive-compulsive disorder, unspecified type F42.9 [facility] [address], [place] [address]- 97[address] Dec, ADHD (attention deficit hyperactivity disorder), combined type F90.2 ; Anxiety disorder, unspecified type F41.9 ; Depressive disorder, not elsewhere classified F32.9 and Obsessive-compulsive disorder, unspecified type F42.9 [place] [address] [place] [address] 16394- 5853 Dec, [place] [id number] [place] [address] 66017- 6822 Nov, ADHD (attention deficit hyperactivity disorder), combined type F90.2 ; Anxiety disorder, unspecified type F41.9 ; Depressive disorder, not elsewhere classified F32.9 and Obsessive-compulsive disorder, unspecified type F42.9 [place] [address] [place] [address] 50807- 1911 Nov, ADHD (attention deficit hyperactivity disorder), combined type F90.2 ; Anxiety disorder, unspecified type F41.9 ; Depressive disorder, not elsewhere classified F32.9 and Obsessive-compulsive disorder, unspecified type F42.9 [facility] [address], [place] [address]- 9498 Nov, [facility] [address], [place] [address]- 9858 Oct, ADHD (attention deficit hyperactivity disorder), combined type F90.2 [facility] [address], [place] [address]- 5863 Oct, [facility] [address], [place] [address]- 6093 Oct, ADHD (attention deficit hyperactivity disorder), combined type F90.2 [facility] [address] [facility] [id number] [address]- [address] Oct, ADHD (attention deficit hyperactivity disorder), combined type F90.2 ; Anxiety disorder, unspecified type F41.9 ; Depressive disorder, not elsewhere classified F32.9 and Obsessive-compulsive disorder, unspecified type F42.9 [facility] [address] [facility] [id number], [place] [address] Oct, Depressive disorder, not elsewhere classified F32.9 ; Anxiety disorder, unspecified type F41.9 and ADHD (attention deficit hyperactivity disorder), combined type F90.2 IMMUNIZATIONS No Known Immunizations SOCIAL HISTORY Never Assessed REASON FOR VISIT f/u-Álvaro GUERRERO PLAN OF CARE Activity Details Follow Up 4 Weeks Reason: f/u VITAL SIGNS Height 65.5 in 2017-01-22 Weight 149.8 lbs 2017-01-22 Heart Rate 84 bpm 2017-01-22 Respiratory Rate 20 2017-01-22 BMI 24.55 kg/m2 2017-01-22 Blood pressure systolic 122 mmHg 2017-01-22 Blood pressure diastolic 76 mmHg 2017-01-22 MEDICATIONS Medication Instructions Dosage Frequency Start Date End Date Duration Status Flexeril 10 MG Orally Three times a day 1 tablet as needed 8h Active HydrOXYzine HCl 25 MG Orally twice a day as needed for sleep/anxiety 1/2 to 1 tablet 30 day(s) Active Depakote 250 MG Orally 2 times a day 1 tablet 12h Active Asmanex HFA 200 MCG/ACT Inhalation Twice a day 2 puffs 12h Active Naproxen 500 MG Orally every 12 hrs 1 tablet as needed 12h Active Prozac 20 mg Orally twice a day 1 capsule 12h 30 days Active Vyvanse 50 mg Orally Once a day in the morning 1 capsule in the morning Dec, 28 days Active Albuterol Sulfate HFA 108 (90 Base) MCG/ACT Inhalation every 4 hrs 2 puffs as needed 4h Active RESULTS No Results PROCEDURES No Known procedures INSTRUCTIONS MEDICATIONS ADMINISTERED No Known Medications MEDICAL (GENERAL) HISTORY Type Description Date Medical History migraines Medical History asthma Medical History Hx of febrile seizure at 18 mos Medical History Denies any hx of heart problem Surgical History C section Surgical History [facility] Hospitalization History Surgery/Child Hospitalization History psychiatric hospitalization 2010
--- OUTSIDE RECORDS SUMMARY | 2018-07-09 17:16 | XMS REPORT ---
Author Author JOSI ARLETH [facility] Address [address] [place] [address] Care Team Providers Care Heat Engineering Teacher Name Role Phone JOSI, ARLETH Unavailable PROBLEMS Type Condition ICD9-CM Code WJE14-ED Code Onset Dates Condition Status SNOMED Code Problem Depressive disorder, not elsewhere classified F32.9 Active 19196548 Problem ADHD (attention deficit hyperactivity disorder), combined type F90.2 Active 99533808 Problem Anxiety disorder, unspecified type F41.9 Active 048788566 ALLERGIES Substance Reaction Event Type Date Status Strattera Numbness/Heart Rate Increased/SOA Drug Allergy Jan, Active ENCOUNTERS Encounter Location Date Diagnosis [facility] [id number] [place] [address] 41791- 1031 September, [facility] [id number] [place] [address] 19652- 4780 September, [facility] [id number] [place] [address] 25168- 1675 September, ADHD (attention deficit hyperactivity disorder), combined type F90.2 [facility] [id number] [place] [address] 48258- 0895 Aug, ADHD (attention deficit hyperactivity disorder), combined type F90.2 ; Anxiety disorder, unspecified type F41.9 and Depressive disorder, not elsewhere classified F32.9 [facility] [id number] [place] [address] 75096- 4807 Aug, ADHD (attention deficit hyperactivity disorder), combined type F90.2 [facility] [id number] [place] [address] 90930- 7431 Jul, [facility] [id number] [place] [address] 72895- 3090 Jul, ADHD (attention deficit hyperactivity disorder), combined type F90.2 [facility] [address] [address]- 7759 Jun, ADHD (attention deficit hyperactivity disorder), combined type F90.2 [facility] [address] [address]- 1348 Jun, ADHD (attention deficit hyperactivity disorder), combined type F90.2 [facility] [address] [address]- 2978 May, ADHD (attention deficit hyperactivity disorder), combined type F90.2 [facility] [address] [address]- 8561 May, [facility] [address] [place] [address] 91426- 7512 May, ADHD (attention deficit hyperactivity disorder), combined type F90.2 ; Anxiety disorder, unspecified type F41.9 ; Depressive disorder, not elsewhere classified F32.9 and Obsessive-compulsive disorder, unspecified type F42.9 [facility] [address] [address]- 4142 Apr, ADHD (attention deficit hyperactivity disorder), combined type F90.2 [facility] [address] [address] Apr, Acute suppurative otitis media of left ear without spontaneous rupture of tympanic membrane, recurrence not specified H66.002 [facility] [address] [address]- 2419 Apr, [facility] [id number] [place] [address] 53850- 4226 Mar, [facility] [address] [address]- 8821 Mar, ADHD (attention deficit hyperactivity disorder), combined type F90.2 [facility] [address] [address]- 1638 Feb, ADHD (attention deficit hyperactivity disorder), combined type F90.2 [facility] [address] [address]- 4512 Feb, [facility] [address] [address]- 3506 Jan, ADHD (attention deficit hyperactivity disorder), combined type F90.2 ; Anxiety disorder, unspecified type F41.9 ; Depressive disorder, not elsewhere classified F32.9 and Obsessive-compulsive disorder, unspecified type F42.9 [place] [address] [address]- 2659 Dec, ADHD (attention deficit hyperactivity disorder), combined type F90.2 ; Anxiety disorder, unspecified type F41.9 ; Depressive disorder, not elsewhere classified F32.9 and Obsessive-compulsive disorder, unspecified type F42.9 [place] [address] [address]- 4266 Dec, [facility] [address] [address]- 5132 Nov, ADHD (attention deficit hyperactivity disorder), combined type F90.2 ; Anxiety disorder, unspecified type F41.9 ; Depressive disorder, not elsewhere classified F32.9 and Obsessive-compulsive disorder, unspecified type F42.9 [place] [address] [address]- 6838 Nov, ADHD (attention deficit hyperactivity disorder), combined type F90.2 ; Anxiety disorder, unspecified type F41.9 ; Depressive disorder, not elsewhere classified F32.9 and Obsessive-compulsive disorder, unspecified type F42.9 [facility] [address] [address]- 1855 Nov, [facility] [address] [address]- 1276 Oct, ADHD (attention deficit hyperactivity disorder), combined type F90.2 [facility] [address] [facility] [id number] [address]- 5398 Oct, [facility] [id number] [address]- 2913 Oct, ADHD (attention deficit hyperactivity disorder), combined type F90.2 [place] [id number] [address]- 8877 Oct, ADHD (attention deficit hyperactivity disorder), combined type F90.2 ; Anxiety disorder, unspecified type F41.9 ; Depressive disorder, not elsewhere classified F32.9 and Obsessive-compulsive disorder, unspecified type F42.9 [place] [id number] [address]- 7446 Oct, Depressive disorder, not elsewhere classified F32.9 ; Anxiety disorder, unspecified type F41.9 and ADHD (attention deficit hyperactivity disorder), combined type F90.2 IMMUNIZATIONS No Known Immunizations SOCIAL HISTORY Never Assessed REASON FOR VISIT f/u--Dolores Tapia MA PLAN OF CARE Activity Details Follow Up 3 Months Reason: f/u VITAL SIGNS Height 65.5 in 2017-02-19 Weight 135.1 lbs 2017-02-19 Heart Rate 82 bpm 2017-02-19 Respiratory Rate 20 2017-02-19 BMI 22.14 kg/m2 2017-02-19 Blood pressure systolic 118 mmHg 2017-02-19 Blood pressure diastolic 80 mmHg 2017-02-19 MEDICATIONS Medication Instructions Dosage Frequency Start Date End Date Duration Status Albuterol Sulfate HFA 108 (90 Base) MCG/ACT Inhalation every 4 hrs 2 puffs as needed 4h Active Asmanex HFA 200 MCG/ACT Inhalation Twice a day 2 puffs 12h Active Prozac 20 mg Orally twice a day 1 capsule 12h 30 days Active Depakote 250 MG Orally 2 times a day 1 tablet 12h Active HydrOXYzine HCl 25 MG Orally twice a day as needed for sleep/anxiety 1/2 to 1 tablet 30 day(s) Active Flexeril 10 MG Orally Three times a day 1 tablet as needed 8h Active Vyvanse 50 mg Orally Once a day in the morning 1 capsule in the morning Jan, 28 days Active Naproxen 500 MG Orally every 12 hrs 1 tablet as needed 12h Active RESULTS No Results PROCEDURES No Known procedures INSTRUCTIONS MEDICATIONS ADMINISTERED No Known Medications MEDICAL (GENERAL) HISTORY Type Description Date Medical History migraines Medical History asthma Medical History Hx of febrile seizure at 18 mos Medical History Denies any hx of heart problem Surgical History C section Surgical History [place] [facility] Hospitalization History Surgery/Child Hospitalization History psychiatric hospitalization 2010
--- OUTSIDE RECORDS SUMMARY | 2018-07-09 17:16 | XMS REPORT ---
Author Author SYLVIE ROSE [facility] Address [address] [place] [address] Care Team Providers Care Professor Of Voice Name Role Phone SYLVIE ROSE Unavailable PROBLEMS Type Condition ICD9-CM Code [id number] Code Onset Dates Condition Status SNOMED Code Problem Depressive disorder, not elsewhere classified F32.9 Active 37368524 Problem ADHD (attention deficit hyperactivity disorder), combined type F90.2 Active 06142700 Problem Anxiety disorder, unspecified type F41.9 Active 625010128 ALLERGIES No Information ENCOUNTERS Encounter Location Date Diagnosis [facility] [id number] [place] [address] 05942- 1844 Aug, [facility] [id number] [place] [address] 99619- 4372 Jul, [facility] [id number] [place] [address] 14198- 8493 Jul, ADHD (attention deficit hyperactivity disorder), combined type F90.2 [facility] [id number] [place] [address] 54070- 5201 Jun, ADHD (attention deficit hyperactivity disorder), combined type F90.2 [facility] [id number] [place] [address] 14188- 8495 Jun, ADHD (attention deficit hyperactivity disorder), combined type F90.2 [facility] [id number] [place] [address] 58739- 1252 May, ADHD (attention deficit hyperactivity disorder), combined type F90.2 [facility] [id number] [place] [address] 18742- 8626 May, [facility] [id number] [place] [address] [place] [address] May, ADHD (attention deficit hyperactivity disorder), combined type F90.2 ; Anxiety disorder, unspecified type F41.9 ; Depressive disorder, not elsewhere classified F32.9 and Obsessive-compulsive disorder, unspecified type F42.9 [facility] [address], [place] [address] Apr, ADHD (attention deficit hyperactivity disorder), combined type F90.2 [facility] [id number] [place] [address] 51311 -4729 Apr, Acute suppurative otitis media of left ear without spontaneous rupture of tympanic membrane, recurrence not specified H66.002 [facility] [id number] [place] [address] 90004- 1111 Apr, [facility] [id number] [place] [address] 03797- 7097 Mar, [facility] [id number] [place] [address] 64094- 9286 Mar, ADHD (attention deficit hyperactivity disorder), combined type F90.2 [facility] [id number] [place] [address] 69884- 1897 Feb, ADHD (attention deficit hyperactivity disorder), combined type F90.2 [facility] [address], [place] [address] 8[address] Feb, [facility] [id number] [place] [address] 29496- 1696 Jan, ADHD (attention deficit hyperactivity disorder), combined type F90.2 ; Anxiety disorder, unspecified type F41.9 ; Depressive disorder, not elsewhere classified F32.9 and Obsessive-compulsive disorder, unspecified type F42.9 [facility] [address], [place] [address] Dec, ADHD (attention deficit hyperactivity disorder), combined type F90.2 ; Anxiety disorder, unspecified type F41.9 ; Depressive disorder, not elsewhere classified F32.9 and Obsessive-compulsive disorder, unspecified type F42.9 [facility] [address], [place] [address] 69[address] Dec, [facility] [address], [place] [address] Nov, ADHD (attention deficit hyperactivity disorder), combined type F90.2 ; Anxiety disorder, unspecified type F41.9 ; Depressive disorder, not elsewhere classified F32.9 and Obsessive-compulsive disorder, unspecified type F42.9 [facility] [id number], [place] [address] Nov, ADHD (attention deficit hyperactivity disorder), combined type F90.2 ; Anxiety disorder, unspecified type F41.9 ; Depressive disorder, not elsewhere classified F32.9 and Obsessive-compulsive disorder, unspecified type F42.9 [facility] [address], [place] [address] Nov, [facility] [id number] [address] 9[address] Oct, ADHD (attention deficit hyperactivity disorder), combined type F90.2 [facility] [id number] [address] 80[address] Oct, [facility] [id number], [place] [address] 7807 Oct, ADHD (attention deficit hyperactivity disorder), combined type F90.2 [facility] [id number], [place] [address] Oct, ADHD (attention deficit hyperactivity disorder), combined type F90.2 ; Anxiety disorder, unspecified type F41.9 ; Depressive disorder, not elsewhere classified F32.9 and Obsessive-compulsive disorder, unspecified type F42.9 [facility] [id number], [place] [address] Oct, Depressive disorder, not elsewhere classified F32.9 ; Anxiety disorder, unspecified type F41.9 and ADHD (attention deficit hyperactivity disorder), combined type F90.2 IMMUNIZATIONS No Known Immunizations SOCIAL HISTORY Never Assessed REASON FOR VISIT intake PLAN OF CARE Activity Details Follow Up prn Reason: VITAL SIGNS MEDICATIONS Unknown Medications RESULTS No Results PROCEDURES Procedure Date Ordered Result Body Site Psych diagnostic evaluation, new patient November 19, 2016 INSTRUCTIONS MEDICATIONS ADMINISTERED No Known Medications MEDICAL (GENERAL) HISTORY Type Description Date Medical History migraines Medical History asthma Medical History Hx of febrile seizure at 18 mos Medical History Denies any hx of heart problem Surgical History C section Surgical History [place] [facility] Hospitalization History Surgery/Child Hospitalization History psychiatric hospitalization 2010
--- OUTSIDE RECORDS SUMMARY | 2018-07-09 17:17 | XMS REPORT ---
Author Author JOSI ARLETH [facility] Address [address] [place] [address] Care Team Providers Care It Security Manager Name Role Phone JOSIARLETH Unavailable PROBLEMS Type Condition ICD9-CM Code [id number] Code Onset Dates Condition Status SNOMED Code Problem Depressive disorder, not elsewhere classified F32.9 Active 98069291 Problem ADHD (attention deficit hyperactivity disorder), combined type F90.2 Active 77474931 Problem Anxiety disorder, unspecified type F41.9 Active 040273258 ALLERGIES No Information ENCOUNTERS Encounter Location Date Diagnosis [facility] [place] [id number] [place] [address] 57241- 1324 Jul, [facility] [place] [id number] [place] [address] 79162- 5128 Jul, ADHD (attention deficit hyperactivity disorder), combined type F90.2 [facility] [place] [id number] [place] [address] 06028- 9874 Jun, ADHD (attention deficit hyperactivity disorder), combined type F90.2 [facility] [place] [id number] [place] [address] 08056- 8322 Jun, ADHD (attention deficit hyperactivity disorder), combined type F90.2 [facility] [place] [id number] [place] [address] 13637- 8582 May, ADHD (attention deficit hyperactivity disorder), combined type F90.2 [facility] [place] [id number] [place] [address] 70585- 6004 May, [facility] [place] [id number] [place] [address] 97451- 9241 May, ADHD (attention deficit hyperactivity disorder), combined type F90.2 ; Anxiety disorder, unspecified type F41.9 ; Depressive disorder, not elsewhere classified F32.9 and Obsessive-compulsive disorder, unspecified type F42.9 [facility] [place] [id number] [place] [address] 78602- 6985 Apr, ADHD (attention deficit hyperactivity disorder), combined type F90.2 [facility] [address], [place] [address] Apr, Acute suppurative otitis media of left ear without spontaneous rupture of tympanic membrane, recurrence not specified H66.002 [facility] [place] [id number] [place] [address] 69366- 7645 Apr, [facility] [place] [id number] [place] [address] 96093- 0884 Mar, [place] [id number] [place] [address] 40780- 8743 Mar, ADHD (attention deficit hyperactivity disorder), combined type F90.2 [facility] [place] [id number] [place] [address] 10467- 6225 Feb, ADHD (attention deficit hyperactivity disorder), combined type F90.2 [facility] [place] [id number] [place] [address] 15991- 8854 Feb, [facility] [place] [id number] [place] [address] 10432- 2908 Jan, ADHD (attention deficit hyperactivity disorder), combined type F90.2 ; Anxiety disorder, unspecified type F41.9 ; Depressive disorder, not elsewhere classified F32.9 and Obsessive-compulsive disorder, unspecified type F42.9 [facility] [place] [id number] [place] [address] 65065- 7000 Dec, ADHD (attention deficit hyperactivity disorder), combined type F90.2 ; Anxiety disorder, unspecified type F41.9 ; Depressive disorder, not elsewhere classified F32.9 and Obsessive-compulsive disorder, unspecified type F42.9 [facility] [place] [id number] [address]- 9328 Dec, [facility] [place] [address] [place] [address] 13194- 4573 Nov, ADHD (attention deficit hyperactivity disorder), combined type F90.2 ; Anxiety disorder, unspecified type F41.9 ; Depressive disorder, not elsewhere classified F32.9 and Obsessive-compulsive disorder, unspecified type F42.9 [facility] [place] [id number] [place] [address] 49014- 5501 Nov, ADHD (attention deficit hyperactivity disorder), combined type F90.2 ; Anxiety disorder, unspecified type F41.9 ; Depressive disorder, not elsewhere classified F32.9 and Obsessive-compulsive disorder, unspecified type F42.9 [facility] [place] [address], [place] [address]- [address] Nov, [place] [id number] [place] [address] 88340- 1876 Oct, ADHD (attention deficit hyperactivity disorder), combined type F90.2 [facility] [place] [address], [place] [address]- 6140 Oct, [place] [address] [place] [address] 70195- 2700 Oct, ADHD (attention deficit hyperactivity disorder), combined type F90.2 [place] [address], [place] [address]- 2548 Oct, ADHD (attention deficit hyperactivity disorder), combined type F90.2 ; Anxiety disorder, unspecified type F41.9 ; Depressive disorder, not elsewhere classified F32.9 and Obsessive-compulsive disorder, unspecified type F42.9 [facility] [place] [address], [place] [address]- 5883 Oct, Depressive disorder, not elsewhere classified F32.9 ; Anxiety disorder, unspecified type F41.9 and ADHD (attention deficit hyperactivity disorder), combined type F90.2 IMMUNIZATIONS No Known Immunizations SOCIAL HISTORY Never Assessed REASON FOR VISIT Vyvanse question PLAN OF CARE VITAL SIGNS MEDICATIONS Unknown Medications RESULTS No Results PROCEDURES No Known procedures INSTRUCTIONS MEDICATIONS ADMINISTERED No Known Medications MEDICAL (GENERAL) HISTORY Type Description Date Medical History migraines Medical History asthma Medical History Hx of febrile seizure at 18 mos Medical History Denies any hx of heart problem Surgical History C section Surgical History [place] [facility] Hospitalization History Surgery/Child Hospitalization History psychiatric hospitalization 2010
--- OUTSIDE RECORDS SUMMARY | 2018-07-09 17:17 | XMS REPORT ---
Author Author VERONICA MORRIS [facility] Address [address] [place] [address] Care Team Providers Care Luggage Maker Name Role Phone ARTURO VERONICA Unavailable PROBLEMS Type Condition ICD9-CM Code CLQ74-FK Code Onset Dates Condition Status SNOMED Code Problem Depressive disorder, not elsewhere classified F32.9 Active 54697138 Problem ADHD (attention deficit hyperactivity disorder), combined type F90.2 Active 34925326 Problem Anxiety disorder, unspecified type F41.9 Active 533068548 ALLERGIES Substance Reaction Event Type Date Status Strattera Numbness/Heart Rate Increased/SOA Drug Allergy Apr, Active ENCOUNTERS Encounter Location Date Diagnosis [place] [id number] [place] [address] 39245- 3971 Oct, [facility] [id number] [place] [address] 86685- 4957 September, ADHD (attention deficit hyperactivity disorder), combined type F90.2 [facility] [id number] [place] [address] 62172- 3468 September, [facility] [id number] [place] [address] 50006- 8134 September, ADHD (attention deficit hyperactivity disorder), combined type F90.2 [facility] [id number] [place] [address] 65031- 7013 Aug, ADHD (attention deficit hyperactivity disorder), combined type F90.2 ; Anxiety disorder, unspecified type F41.9 and Depressive disorder, not elsewhere classified F32.9 [facility] [id number] [place] [address] 66084- 9916 Aug, ADHD (attention deficit hyperactivity disorder), combined type F90.2 [facility] [address], [place] [address]- 5[address] Jul, [facility] [address], [place] [address]- 6177 Jul, ADHD (attention deficit hyperactivity disorder), combined type F90.2 [facility] [address], [place] [address]- 9168 Jun, ADHD (attention deficit hyperactivity disorder), combined type F90.2 [facility] [address], [place] [address]- 1515 Jun, ADHD (attention deficit hyperactivity disorder), combined type F90.2 [facility] [id number], [place] [address]- 6912 May, ADHD (attention deficit hyperactivity disorder), combined type F90.2 [facility] [address], [place] [address]- 2217 May, [facility] [address], [place] [address]- 7898 May, ADHD (attention deficit hyperactivity disorder), combined type F90.2 ; Anxiety disorder, unspecified type F41.9 ; Depressive disorder, not elsewhere classified F32.9 and Obsessive-compulsive disorder, unspecified type F42.9 [facility] [address], [place] [address]- 3174 Apr, ADHD (attention deficit hyperactivity disorder), combined type F90.2 [facility] [id number], [place] [address] Apr, Acute suppurative otitis media of left ear without spontaneous rupture of tympanic membrane, recurrence not specified H66.002 [facility] [address], [place] [address]- 6957 Apr, [facility] [id number], [place] [address]- 4233 Mar, [facility] [address], [place] [address]- 2457 Mar, ADHD (attention deficit hyperactivity disorder), combined type F90.2 [place] [id number] [place] [address]- 6327 Feb, ADHD (attention deficit hyperactivity disorder), combined type F90.2 [place] [address], [place] [address]- 2931 Feb, [place] [id number] [place] [address] 74162- 6075 Jan, ADHD (attention deficit hyperactivity disorder), combined type F90.2 ; Anxiety disorder, unspecified type F41.9 ; Depressive disorder, not elsewhere classified F32.9 and Obsessive-compulsive disorder, unspecified type F42.9 [place] [address], [place] [address]- 4309 Dec, ADHD (attention deficit hyperactivity disorder), combined type F90.2 ; Anxiety disorder, unspecified type F41.9 ; Depressive disorder, not elsewhere classified F32.9 and Obsessive-compulsive disorder, unspecified type F42.9 [place] [address], [place] [address]- 2819 Dec, [place] [address], [place] [address]- 7750 Nov, ADHD (attention deficit hyperactivity disorder), combined type F90.2 ; Anxiety disorder, unspecified type F41.9 ; Depressive disorder, not elsewhere classified F32.9 and Obsessive-compulsive disorder, unspecified type F42.9 [place] [address], [place] [address]- 9251 Nov, ADHD (attention deficit hyperactivity disorder), combined type F90.2 ; Anxiety disorder, unspecified type F41.9 ; Depressive disorder, not elsewhere classified F32.9 and Obsessive-compulsive disorder, unspecified type F42.9 [place] [address], [place] [address]- 2890 Nov, [place] [id number] [place] [address]- 5768 Oct, ADHD (attention deficit hyperactivity disorder), combined type F90.2 [place] [id number], [place] [address]- 8228 Oct, [place] [address], [place] [address]- 4644 Oct, ADHD (attention deficit hyperactivity disorder), combined type F90.2 [place] [id number], [place] [address]- 9833 Oct, ADHD (attention deficit hyperactivity disorder), combined type F90.2 ; Anxiety disorder, unspecified type F41.9 ; Depressive disorder, not elsewhere classified F32.9 and Obsessive-compulsive disorder, unspecified type F42.9 [place] [id number], [place] [address]- 2034 Oct, Depressive disorder, not elsewhere classified F32.9 ; Anxiety disorder, unspecified type F41.9 and ADHD (attention deficit hyperactivity disorder), combined type F90.2 IMMUNIZATIONS No Known Immunizations SOCIAL HISTORY Never Assessed REASON FOR VISIT left earache down into her neck. also feels tender in her jaw and her scalp on the left side. the ear pain comes and goes and is very sharp. haley, says this all started a month ago and comes and goes. PLAN OF CARE Activity Details Follow Up prn Reason: VITAL SIGNS Height 65.5 in 2017-05-01 Weight 136.2 lbs 2017-05-01 Temperature 98.9 degrees Fahrenheit 2017-05-01 Heart Rate 84 bpm 2017-05-01 Respiratory Rate 20 2017-05-01 BMI 22.32 kg/m2 2017-05-01 Blood pressure systolic 120 mmHg 2017-05-01 Blood pressure diastolic 74 mmHg 2017-05-01 MEDICATIONS Medication Instructions Dosage Frequency Start Date End Date Duration Status Depakote 250 MG Orally 2 times a day 1 tablet 12h Not-Taking Naproxen 500 MG Orally every 12 hrs 1 tablet as needed 12h Active Flexeril 10 MG Orally Three times a day 1 tablet as needed 8h Active Hydrocodone-Acetaminophen 5-325 MG Orally every 6 hrs 1 tablet as needed 6h Active Prozac 20 mg Orally twice a day 1 capsule 12h 30 days Active HydrOXYzine HCl 25 MG Orally twice a day as needed for sleep/anxiety 1/2 to 1 tablet 30 day(s) Active Vyvanse 50 mg Orally Once a day in the morning 1 capsule in the morning Mar, 28 days Active Asmanex HFA 200 MCG/ACT Inhalation Twice a day 2 puffs 12h Active Albuterol Sulfate HFA 108 (90 Base) MCG/ACT Inhalation every 4 hrs 2 puffs as needed 4h Active Amoxicillin 875 MG Orally every 12 hrs 1 tablet 12h Apr, Apr, 10 day(s) Active RESULTS No Results PROCEDURES No Known procedures INSTRUCTIONS MEDICATIONS ADMINISTERED No Known Medications MEDICAL (GENERAL) HISTORY Type Description Date Medical History migraines Medical History asthma Medical History Hx of febrile seizure at 18 mos Medical History Denies any hx of heart problem Surgical History C section Surgical History [place] [facility] Hospitalization History Surgery/Child Hospitalization History psychiatric hospitalization 2010
--- OUTSIDE RECORDS SUMMARY | 2018-07-09 17:17 | XMS REPORT ---
Author Author ARLETH PRATER [facility] Address [address] [place] [address] Care Team Providers Care Custom Shoemaker Name Role Phone ARLETH PRATER Unavailable PROBLEMS Type Condition ICD9-CM Code EEX39-CK Code Onset Dates Condition Status SNOMED Code Problem Depressive disorder, not elsewhere classified F32.9 Active 14210495 Problem ADHD (attention deficit hyperactivity disorder), combined type F90.2 Active 95161583 Problem Anxiety disorder, unspecified type F41.9 Active 881657339 ALLERGIES No Information ENCOUNTERS Encounter Location Date Diagnosis [facility] [id number] [place] [address] 03010- 2611 Aug, [facility] [id number] [place] [address] 15053- 5752 Jul, [facility] [id number] [place] [address] 48218- 3075 Jul, ADHD (attention deficit hyperactivity disorder), combined type F90.2 [facility] [id number] [place] [address] 61090- 9406 Jun, ADHD (attention deficit hyperactivity disorder), combined type F90.2 [facility] [id number] [place] [address] 03764- 9620 Jun, ADHD (attention deficit hyperactivity disorder), combined type F90.2 [facility] [id number] [place] [address] 35037- 3095 May, ADHD (attention deficit hyperactivity disorder), combined type F90.2 [facility] [id number] [place] [address] 98243- 4890 May, [facility] [address] [place] [address]- 6160 May, ADHD (attention deficit hyperactivity disorder), combined type F90.2 ; Anxiety disorder, unspecified type F41.9 ; Depressive disorder, not elsewhere classified F32.9 and Obsessive-compulsive disorder, unspecified type F42.9 [facility] [id number] [address] 9[address] Apr, ADHD (attention deficit hyperactivity disorder), combined type F90.2 [facility] [id number] [place] [address] 09638 -5627 Apr, Acute suppurative otitis media of left ear without spontaneous rupture of tympanic membrane, recurrence not specified H66.002 [facility] [id number] [place] [address] 72525- 8713 Apr, [facility] [id number] [place] [address] 81205- 1791 Mar, [facility] [id number] [place] [address] 54616- 1078 Mar, ADHD (attention deficit hyperactivity disorder), combined type F90.2 [facility] [id number] [place] [address] 55639- 3763 Feb, ADHD (attention deficit hyperactivity disorder), combined type F90.2 [facility] [id number] [address] 3823 Feb, [facility] [id number] [place] [address] 35876- 9939 Jan, ADHD (attention deficit hyperactivity disorder), combined type F90.2 ; Anxiety disorder, unspecified type F41.9 ; Depressive disorder, not elsewhere classified F32.9 and Obsessive-compulsive disorder, unspecified type F42.9 [facility] [id number] [place] [address] 18293- 1950 Dec, ADHD (attention deficit hyperactivity disorder), combined type F90.2 ; Anxiety disorder, unspecified type F41.9 ; Depressive disorder, not elsewhere classified F32.9 and Obsessive-compulsive disorder, unspecified type F42.9 [facility] [id number] [address] 3248 Dec, [facility] [id number] [address]- 7770 Nov, ADHD (attention deficit hyperactivity disorder), combined type F90.2 ; Anxiety disorder, unspecified type F41.9 ; Depressive disorder, not elsewhere classified F32.9 and Obsessive-compulsive disorder, unspecified type F42.9 [facility] [id number] [address]- 6543 Nov, ADHD (attention deficit hyperactivity disorder), combined type F90.2 ; Anxiety disorder, unspecified type F41.9 ; Depressive disorder, not elsewhere classified F32.9 and Obsessive-compulsive disorder, unspecified type F42.9 [facility] [id number] [address]- 2877 Nov, [facility] [id number] [address]- 9091 Oct, ADHD (attention deficit hyperactivity disorder), combined type F90.2 [facility] [id number] [address]- 5608 Oct, [facility] [id number] [address]- 8690 Oct, ADHD (attention deficit hyperactivity disorder), combined type F90.2 [facility] [id number] [address]- 9183 Oct, ADHD (attention deficit hyperactivity disorder), combined type F90.2 ; Anxiety disorder, unspecified type F41.9 ; Depressive disorder, not elsewhere classified F32.9 and Obsessive-compulsive disorder, unspecified type F42.9 [facility] [id number] [address]- 1487 Oct, Depressive disorder, not elsewhere classified F32.9 ; Anxiety disorder, unspecified type F41.9 and ADHD (attention deficit hyperactivity disorder), combined type F90.2 IMMUNIZATIONS No Known Immunizations SOCIAL HISTORY Never Assessed REASON FOR VISIT PA for Adderall XR (generic) PLAN OF CARE VITAL SIGNS MEDICATIONS Unknown Medications RESULTS No Results PROCEDURES No Known procedures INSTRUCTIONS MEDICATIONS ADMINISTERED No Known Medications MEDICAL (GENERAL) HISTORY Type Description Date Medical History migraines Medical History asthma Medical History Hx of febrile seizure at 18 mos Medical History Denies any hx of heart problem Surgical History C section Surgical History [place] [facility] Hospitalization History Surgery/Child Hospitalization History psychiatric hospitalization 2010
--- OUTSIDE RECORDS SUMMARY | 2018-07-09 17:17 | XMS REPORT ---
Author Author JOSI ARLETH [facility] Address [address] [place] [address] Care Team Providers Care Costumed Character Name Role Phone JOSI, ARLETH Unavailable PROBLEMS Type Condition ICD9-CM Code EAD05-VL Code Onset Dates Condition Status SNOMED Code Problem Depressive disorder, not elsewhere classified F32.9 Active 60484415 Problem ADHD (attention deficit hyperactivity disorder), combined type F90.2 Active 52219517 Problem Anxiety disorder, unspecified type F41.9 Active 897516748 ALLERGIES Substance Reaction Event Type Date Status Strattera Numbness/Heart Rate Increased/SOA Drug Allergy Nov, Active ENCOUNTERS Encounter Location Date Diagnosis [facility] [id number] [place] [address] 60270- 6115 Aug, [facility] [id number] [place] [address] 24496- 0923 Jul, [facility] [id number] [place] [address] 43026- 0515 Jul, ADHD (attention deficit hyperactivity disorder), combined type F90.2 [facility] [id number] [place] [address] 11237- 3974 Jun, ADHD (attention deficit hyperactivity disorder), combined type F90.2 [facility] [address] [address]- 9421 Jun, ADHD (attention deficit hyperactivity disorder), combined type F90.2 [facility] [id number] [place] [address] 85458- 2348 May, ADHD (attention deficit hyperactivity disorder), combined type F90.2 [facility] [id number] [place] [address] 06893- 3129 May, [facility] [address] [address]- 1743 May, ADHD (attention deficit hyperactivity disorder), combined type F90.2 ; Anxiety disorder, unspecified type F41.9 ; Depressive disorder, not elsewhere classified F32.9 and Obsessive-compulsive disorder, unspecified type F42.9 [facility] [id number] [place] [address] 52791- 3722 Apr, ADHD (attention deficit hyperactivity disorder), combined type F90.2 [facility] IN [facility] [id number] [place] [address] 34150 -6324 Apr, Acute suppurative otitis media of left ear without spontaneous rupture of tympanic membrane, recurrence not specified H66.002 [facility] [id number] [address]- 1703 Apr, [facility] [id number] [place] [address] 40009- 7515 Mar, [facility] [id number] [place] [address] 65542- 3474 Mar, ADHD (attention deficit hyperactivity disorder), combined type F90.2 [facility] [address] [address]- 2903 Feb, ADHD (attention deficit hyperactivity disorder), combined type F90.2 [facility] [id number] [address]- 0498 Feb, [facility] [id number] [place] [address] 99642- 7825 Jan, ADHD (attention deficit hyperactivity disorder), combined type F90.2 ; Anxiety disorder, unspecified type F41.9 ; Depressive disorder, not elsewhere classified F32.9 and Obsessive-compulsive disorder, unspecified type F42.9 [facility] [address] [address]- 6558 Dec, ADHD (attention deficit hyperactivity disorder), combined type F90.2 ; Anxiety disorder, unspecified type F41.9 ; Depressive disorder, not elsewhere classified F32.9 and Obsessive-compulsive disorder, unspecified type F42.9 [facility] [address] [address]- 1847 Dec, [facility] [address] [address]- 7200 Nov, ADHD (attention deficit hyperactivity disorder), combined type F90.2 ; Anxiety disorder, unspecified type F41.9 ; Depressive disorder, not elsewhere classified F32.9 and Obsessive-compulsive disorder, unspecified type F42.9 [facility] [id number] [place] [address] 05376- 3425 Nov, ADHD (attention deficit hyperactivity disorder), combined type F90.2 ; Anxiety disorder, unspecified type F41.9 ; Depressive disorder, not elsewhere classified F32.9 and Obsessive-compulsive disorder, unspecified type F42.9 [facility] [address] [address]- 7935 Nov, [facility] [id number] [place] [address] 74964- 5309 Oct, ADHD (attention deficit hyperactivity disorder), combined type F90.2 [facility] [address] [address]- 8607 Oct, [facility] [address] [address]- 9396 Oct, ADHD (attention deficit hyperactivity disorder), combined type F90.2 [facility] [id number] [address]- 6089 Oct, ADHD (attention deficit hyperactivity disorder), combined type F90.2 ; Anxiety disorder, unspecified type F41.9 ; Depressive disorder, not elsewhere classified F32.9 and Obsessive-compulsive disorder, unspecified type F42.9 [facility] [address] [address]- 9378 Oct, Depressive disorder, not elsewhere classified F32.9 ; Anxiety disorder, unspecified type F41.9 and ADHD (attention deficit hyperactivity disorder), combined type F90.2 IMMUNIZATIONS No Known Immunizations SOCIAL HISTORY Never Assessed REASON FOR VISIT F/U PLAN OF CARE Activity Details Follow Up 4 Weeks Reason: f/u VITAL SIGNS Height 65.5 in 2016-11-27 Weight 151.8 lbs 2016-11-27 Heart Rate 92 bpm 2016-11-27 Respiratory Rate 20 2016-11-27 BMI 24.87 kg/m2 2016-11-27 Blood pressure systolic 132 mmHg 2016-11-27 Blood pressure diastolic 74 mmHg 2016-11-27 MEDICATIONS Medication Instructions Dosage Frequency Start Date End Date Duration Status Naproxen 500 MG Orally every 12 hrs 1 tablet as needed 12h Active Depakote 250 MG Orally 2 times a day 1 tablet 12h Active HydrOXYzine HCl 25 MG Orally twice a day as needed for sleep/anxiety 1/2 to 1 tablet 30 day(s) Active Albuterol Sulfate HFA 108 (90 Base) MCG/ACT Inhalation every 4 hrs 2 puffs as needed 4h Active Prozac 20 mg Orally twice a day 1 capsule 12h 30 days Active Adderall XR 20 mg Orally Once a day 1 capsule in the morning 24h Nov, 28 days Active Flexeril 10 MG Orally Three times a day 1 tablet as needed 8h Active Asmanex HFA 200 MCG/ACT Inhalation Twice a day 2 puffs 12h Active RESULTS No Results PROCEDURES Procedure Date Ordered Result Body Site Billing Notes on claim November 27, 2016 INSTRUCTIONS MEDICATIONS ADMINISTERED No Known Medications MEDICAL (GENERAL) HISTORY Type Description Date Medical History migraines Medical History asthma Medical History Hx of febrile seizure at 18 mos Medical History Denies any hx of heart problem Surgical History C section Surgical History [place] [facility] Hospitalization History Surgery/Child Hospitalization History psychiatric hospitalization 2010
--- OUTSIDE RECORDS SUMMARY | 2018-07-09 17:17 | XMS REPORT ---
Author Author ALISON LILLY [facility] Address [address] [place] [address] Care Team Providers Care Axle Polisher Name Role Phone ADELIA LILLYGILBERT Unavailable PROBLEMS Type Condition ICD9-CM Code IBC76-RZ Code Onset Dates Condition Status SNOMED Code Problem Depressive disorder, not elsewhere classified F32.9 Active 41003676 Problem ADHD (attention deficit hyperactivity disorder), combined type F90.2 Active 64548019 Problem Anxiety disorder, unspecified type F41.9 Active 783097496 ALLERGIES No Information ENCOUNTERS Encounter Location Date Diagnosis [facility] [place] [id number] [place] [address] 54783- 0208 Aug, [facility] [place] [id number] [place] [address] 49128- 6064 Jul, [facility] [place] [id number] [place] [address] 93971- 8563 Jul, ADHD (attention deficit hyperactivity disorder), combined type F90.2 [facility] [place] [id number] [place] [address] 76089- 5502 16 Jun, 2017 ADHD (attention deficit hyperactivity disorder), combined type F90.2 [facility] [place] [id number] [place] [address] 54313- 3820 Jun, ADHD (attention deficit hyperactivity disorder), combined type F90.2 [facility] [place] [id number] [place] [address] 60918- 3572 May, ADHD (attention deficit hyperactivity disorder), combined type F90.2 [facility] [place] [id number] [place] [address] 79895- 1115 May, [facility] [place] [id number] [place] [address] 26628- 8449 May, ADHD (attention deficit hyperactivity disorder), combined type F90.2 ; Anxiety disorder, unspecified type F41.9 ; Depressive disorder, not elsewhere classified F32.9 and Obsessive-compulsive disorder, unspecified type F42.9 [facility] [place] [address] [address]- 5538 Apr, ADHD (attention deficit hyperactivity disorder), combined type F90.2 [facility] [id number] [place] [address] 72288 -1460 Apr, Acute suppurative otitis media of left ear without spontaneous rupture of tympanic membrane, recurrence not specified H66.002 [facility] [place] [id number] [place] [address] 58931- 1292 Apr, [facility] [place] [id number] [place] [address] 68191- 5780 Mar, [facility] [place] [id number] [place] [address] 51812- 3097 Mar, ADHD (attention deficit hyperactivity disorder), combined type F90.2 [facility] [place] [id number] [place] [address] 22267- 2377 Feb, ADHD (attention deficit hyperactivity disorder), combined type F90.2 [facility] [place] [address] [address]- 3219 Feb, [facility] [place] [id number] [place] [address] 81645- 0647 Jan, ADHD (attention deficit hyperactivity disorder), combined type F90.2 ; Anxiety disorder, unspecified type F41.9 ; Depressive disorder, not elsewhere classified F32.9 and Obsessive-compulsive disorder, unspecified type F42.9 [facility] [place] [address] [address]- 9876 Dec, ADHD (attention deficit hyperactivity disorder), combined type F90.2 ; Anxiety disorder, unspecified type F41.9 ; Depressive disorder, not elsewhere classified F32.9 and Obsessive-compulsive disorder, unspecified type F42.9 [facility] [place] [address] [address]- 8207 Dec, [facility] [place] [address] [place] [address] 78207- 4921 Nov, ADHD (attention deficit hyperactivity disorder), combined type F90.2 ; Anxiety disorder, unspecified type F41.9 ; Depressive disorder, not elsewhere classified F32.9 and Obsessive-compulsive disorder, unspecified type F42.9 [facility] [place] [id number] [address]- 1792 Nov, ADHD (attention deficit hyperactivity disorder), combined type F90.2 ; Anxiety disorder, unspecified type F41.9 ; Depressive disorder, not elsewhere classified F32.9 and Obsessive-compulsive disorder, unspecified type F42.9 [facility] [place] [address] [address]- 2944 Nov, [facility] [place] [address] [address]- 6142 Oct, ADHD (attention deficit hyperactivity disorder), combined type F90.2 [facility] [place] [address] [address]- 3536 Oct, [facility] [place] [id number] [address]- 3382 Oct, ADHD (attention deficit hyperactivity disorder), combined type F90.2 [facility] [place] [id number] [address]- 2323 Oct, ADHD (attention deficit hyperactivity disorder), combined type F90.2 ; Anxiety disorder, unspecified type F41.9 ; Depressive disorder, not elsewhere classified F32.9 and Obsessive-compulsive disorder, unspecified type F42.9 [facility] [place] [id number] [address]- 5249 Oct, Depressive disorder, not elsewhere classified F32.9 ; Anxiety disorder, unspecified type F41.9 and ADHD (attention deficit hyperactivity disorder), combined type F90.2 IMMUNIZATIONS No Known Immunizations SOCIAL HISTORY Never Assessed REASON FOR VISIT Resend script PLAN OF CARE VITAL SIGNS MEDICATIONS Medication Instructions Dosage Frequency Start Date End Date Duration Status Adderall XR 10 mg Orally Once a day 1 capsule in the morning 24h Oct, 28 days Active RESULTS No Results PROCEDURES No Known procedures INSTRUCTIONS MEDICATIONS ADMINISTERED No Known Medications MEDICAL (GENERAL) HISTORY Type Description Date Medical History migraines Medical History asthma Medical History Hx of febrile seizure at 18 mos Medical History Denies any hx of heart problem Surgical History C section Surgical History [place] [facility] Hospitalization History Surgery/Child Hospitalization History psychiatric hospitalization 2010
--- OUTSIDE RECORDS SUMMARY | 2018-07-09 17:17 | XMS REPORT ---
Author Author JOSI ARLETH [facility] Address [address] [place] [address] Care Team Providers Care Cyber Incident Handler Name Role Phone ARLETH PRATER Unavailable PROBLEMS Type Condition ICD9-CM Code NYM60-UT Code Onset Dates Condition Status SNOMED Code Problem Depressive disorder, not elsewhere classified F32.9 Active 34278645 Problem ADHD (attention deficit hyperactivity disorder), combined type F90.2 Active 88975629 Problem Anxiety disorder, unspecified type F41.9 Active 856890699 ALLERGIES No Information ENCOUNTERS Encounter Location Date Diagnosis [facility] [id number] [place] [address] 52669- 6364 Aug, [facility] [id number] [place] [address] 38443- 3947 Jul, [facility] [id number] [place] [address] 24150- 1374 Jul, ADHD (attention deficit hyperactivity disorder), combined type F90.2 [facility] [id number] [place] [address] 84190- 9612 Jun, ADHD (attention deficit hyperactivity disorder), combined type F90.2 [facility] [id number] [place] [address] 21451- 9655 Jun, ADHD (attention deficit hyperactivity disorder), combined type F90.2 [facility] [id number] [place] [address] 22896- 9687 May, ADHD (attention deficit hyperactivity disorder), combined type F90.2 [facility] [id number] [place] [address] 24581- 1999 May, [facility] [address] [place] [address] 9466 May, ADHD (attention deficit hyperactivity disorder), combined type F90.2 ; Anxiety disorder, unspecified type F41.9 ; Depressive disorder, not elsewhere classified F32.9 and Obsessive-compulsive disorder, unspecified type F42.9 [facility] [address] [place] [address] Apr, ADHD (attention deficit hyperactivity disorder), combined type F90.2 [facility] [id number] [place] [address] 77082 -2266 Apr, Acute suppurative otitis media of left ear without spontaneous rupture of tympanic membrane, recurrence not specified H66.002 [facility] [id number] [place] [address] 49655- 7396 Apr, [facility] [id number] [place] [address] 63440- 2014 Mar, [facility] [id number] [place] [address] 16733- 6519 Mar, ADHD (attention deficit hyperactivity disorder), combined type F90.2 [facility] [id number] [place] [address] 15155- 2473 Feb, ADHD (attention deficit hyperactivity disorder), combined type F90.2 [facility] [address] [address] Feb, [facility] [id number] [place] [address] 35318- 6536 Jan, ADHD (attention deficit hyperactivity disorder), combined type F90.2 ; Anxiety disorder, unspecified type F41.9 ; Depressive disorder, not elsewhere classified F32.9 and Obsessive-compulsive disorder, unspecified type F42.9 [facility] [address] [place] [address] 71358- 3644 Dec, ADHD (attention deficit hyperactivity disorder), combined type F90.2 ; Anxiety disorder, unspecified type F41.9 ; Depressive disorder, not elsewhere classified F32.9 and Obsessive-compulsive disorder, unspecified type F42.9 [facility] [address] [place] [address] 7094 Dec, [facility] [address], [place] [address] 66[address] Nov, ADHD (attention deficit hyperactivity disorder), combined type F90.2 ; Anxiety disorder, unspecified type F41.9 ; Depressive disorder, not elsewhere classified F32.9 and Obsessive-compulsive disorder, unspecified type F42.9 [facility] [id number] [address] Nov, ADHD (attention deficit hyperactivity disorder), combined type F90.2 ; Anxiety disorder, unspecified type F41.9 ; Depressive disorder, not elsewhere classified F32.9 and Obsessive-compulsive disorder, unspecified type F42.9 [facility] [address] [place] [address] 8[address] Nov, [facility] [id number], [place] [address] 7780 Oct, ADHD (attention deficit hyperactivity disorder), combined type F90.2 [facility] [id number], [place] [address] 0898 Oct, [facility] [id number] [address]- 7896 Oct, ADHD (attention deficit hyperactivity disorder), combined type F90.2 [facility] [id number], [place] [address] 8895 Oct, ADHD (attention deficit hyperactivity disorder), combined type F90.2 ; Anxiety disorder, unspecified type F41.9 ; Depressive disorder, not elsewhere classified F32.9 and Obsessive-compulsive disorder, unspecified type F42.9 [facility] [id number] [address] 07[address] Oct, Depressive disorder, not elsewhere classified F32.9 ; Anxiety disorder, unspecified type F41.9 and ADHD (attention deficit hyperactivity disorder), combined type F90.2 IMMUNIZATIONS No Known Immunizations SOCIAL HISTORY Never Assessed REASON FOR VISIT medication PLAN OF CARE VITAL SIGNS MEDICATIONS Unknown Medications RESULTS No Results PROCEDURES No Known procedures INSTRUCTIONS MEDICATIONS ADMINISTERED No Known Medications MEDICAL (GENERAL) HISTORY Type Description Date Medical History migraines Medical History asthma Medical History Hx of febrile seizure at 18 mos Medical History Denies any hx of heart problem Surgical History C section Surgical History [place] [facility] Hospitalization History Surgery/Child Hospitalization History psychiatric hospitalization 2010
--- OUTSIDE RECORDS SUMMARY | 2018-07-09 17:17 | XMS REPORT ---
Author Author JOSI ARLETH [facility] Address [address] [place] [address] Care Team Providers Care Software Quality Assurance Specialist Name Role Phone JOSIARLETH Unavailable PROBLEMS Type Condition ICD9-CM Code HQZ00-CI Code Onset Dates Condition Status SNOMED Code Problem Depressive disorder, not elsewhere classified F32.9 Active 33858638 Problem ADHD (attention deficit hyperactivity disorder), combined type F90.2 Active 59748598 Problem Anxiety disorder, unspecified type F41.9 Active 209007773 ALLERGIES No Information ENCOUNTERS Encounter Location Date Diagnosis [facility] [address] [address] Oct, [facility] [address] [address]- [address] September, ADHD (attention deficit hyperactivity disorder), combined type F90.2 [facility] [id number] [place] [address] 44815- 4351 September, [facility] [id number] [place] [address] 00923- 8376 September, ADHD (attention deficit hyperactivity disorder), combined type F90.2 [facility] [id number] [place] [address] 19488- 2025 Aug, ADHD (attention deficit hyperactivity disorder), combined type F90.2 ; Anxiety disorder, unspecified type F41.9 and Depressive disorder, not elsewhere classified F32.9 [facility] [id number] [place] [address] 82069- 9208 Aug, ADHD (attention deficit hyperactivity disorder), combined type F90.2 [facility] [id number] [place] [address] 34179- 1691 Jul, [facility] [address], [place] [address]- 1462 Jul, ADHD (attention deficit hyperactivity disorder), combined type F90.2 [facility] [address], [place] [address]- 3699 Jun, ADHD (attention deficit hyperactivity disorder), combined type F90.2 [facility] [id number] [place] [address] 58934- 0178 Jun, ADHD (attention deficit hyperactivity disorder), combined type F90.2 [facility] [id number] [place] [address] 23897- 8625 May, ADHD (attention deficit hyperactivity disorder), combined type F90.2 [facility] [id number] [place] [address] 33592- 4698 May, [facility] [id number] [place] [address] 40903- 2316 May, ADHD (attention deficit hyperactivity disorder), combined type F90.2 ; Anxiety disorder, unspecified type F41.9 ; Depressive disorder, not elsewhere classified F32.9 and Obsessive-compulsive disorder, unspecified type F42.9 [facility] [address], [place] [address]- 8421 Apr, ADHD (attention deficit hyperactivity disorder), combined type F90.2 [facility] [address] [place] [address] 42092 -6954 Apr, Acute suppurative otitis media of left ear without spontaneous rupture of tympanic membrane, recurrence not specified H66.002 [facility] [id number] [place] [address] 75344- 0372 Apr, [facility] [address], [place] [address]- 2486 Mar, [facility] [id number] [place] [address] 97145- 3867 Mar, ADHD (attention deficit hyperactivity disorder), combined type F90.2 [facility] [address], [place] [address]- 5149 Feb, ADHD (attention deficit hyperactivity disorder), combined type F90.2 [facility] [address], [place] [address]- 6584 Feb, [facility] [id number] [place] [address] 98132- 2836 Jan, ADHD (attention deficit hyperactivity disorder), combined type F90.2 ; Anxiety disorder, unspecified type F41.9 ; Depressive disorder, not elsewhere classified F32.9 and Obsessive-compulsive disorder, unspecified type F42.9 [facility] [address], [place] [address]- 9702 Dec, ADHD (attention deficit hyperactivity disorder), combined type F90.2 ; Anxiety disorder, unspecified type F41.9 ; Depressive disorder, not elsewhere classified F32.9 and Obsessive-compulsive disorder, unspecified type F42.9 [facility] [address], [place] [address]- 8222 Dec, [facility] [address] [place] [address] 65105- 7984 Nov, ADHD (attention deficit hyperactivity disorder), combined type F90.2 ; Anxiety disorder, unspecified type F41.9 ; Depressive disorder, not elsewhere classified F32.9 and Obsessive-compulsive disorder, unspecified type F42.9 [facility] [address], [place] [address]- 1961 Nov, ADHD (attention deficit hyperactivity disorder), combined type F90.2 ; Anxiety disorder, unspecified type F41.9 ; Depressive disorder, not elsewhere classified F32.9 and Obsessive-compulsive disorder, unspecified type F42.9 [facility] [address], [place] [address]- 0789 Nov, [facility] [id number] [place] [address] 96530- 2851 Oct, ADHD (attention deficit hyperactivity disorder), combined type F90.2 [facility] [id number], [place] [address]- 4097 Oct, [facility] [id number], [place] [address]- 0538 Oct, ADHD (attention deficit hyperactivity disorder), combined type F90.2 [facility] [id number], [place] [address]- 6666 Oct, ADHD (attention deficit hyperactivity disorder), combined type F90.2 ; Anxiety disorder, unspecified type F41.9 ; Depressive disorder, not elsewhere classified F32.9 and Obsessive-compulsive disorder, unspecified type F42.9 [facility] [address] [facility] [id number] [address] Oct, Depressive disorder, not elsewhere classified F32.9 ; Anxiety disorder, unspecified type F41.9 and ADHD (attention deficit hyperactivity disorder), combined type F90.2 IMMUNIZATIONS No Known Immunizations SOCIAL HISTORY Never Assessed REASON FOR VISIT AK bekah Pugh PLAN OF CARE VITAL SIGNS MEDICATIONS Unknown Medications RESULTS No Results PROCEDURES No Known procedures INSTRUCTIONS MEDICATIONS ADMINISTERED No Known Medications MEDICAL (GENERAL) HISTORY Type Description Date Medical History migraines Medical History asthma Medical History Hx of febrile seizure at 18 mos Medical History Denies any hx of heart problem Surgical History C section Surgical History [place] [facility] Hospitalization History Surgery/Child Hospitalization History psychiatric hospitalization 2010
--- OUTSIDE RECORDS SUMMARY | 2018-07-09 17:17 | XMS REPORT ---
Author Author JOSI ARLETH [facility] Address [address] [place] [address] Care Team Providers Care Brick And Tile Making Machine Operator Name Role Phone JOSI, ARLETH Unavailable PROBLEMS Type Condition ICD9-CM Code GRE38-TN Code Onset Dates Condition Status SNOMED Code Problem Depressive disorder, not elsewhere classified F32.9 Active 47466828 Problem ADHD (attention deficit hyperactivity disorder), combined type F90.2 Active 10426465 Problem Anxiety disorder, unspecified type F41.9 Active 219603935 ALLERGIES Substance Reaction Event Type Date Status Strattera Numbness/Heart Rate Increased/SOA Drug Allergy Nov, Active ENCOUNTERS Encounter Location Date Diagnosis [facility] [id number] [place] [address] 25332- 3152 Jul, [facility] [id number] [place] [address] 56252- 1001 Jul, ADHD (attention deficit hyperactivity disorder), combined type F90.2 [facility] [id number] [place] [address] 74773- 6820 Jun, ADHD (attention deficit hyperactivity disorder), combined type F90.2 [facility] [address] [place] [address] 49683- 1849 Jun, ADHD (attention deficit hyperactivity disorder), combined type F90.2 [facility] [id number] [place] [address] 88591- 2347 May, ADHD (attention deficit hyperactivity disorder), combined type F90.2 [facility] [address] [place] [address] 88570- 7557 May, [facility] [id number] [place] [address] 23030- 5363 May, ADHD (attention deficit hyperactivity disorder), combined type F90.2 ; Anxiety disorder, unspecified type F41.9 ; Depressive disorder, not elsewhere classified F32.9 and Obsessive-compulsive disorder, unspecified type F42.9 [facility] [address], [place] [address]- 0237 Apr, ADHD (attention deficit hyperactivity disorder), combined type F90.2 [facility] [id number] [place] [address] 57035 -4516 Apr, Acute suppurative otitis media of left ear without spontaneous rupture of tympanic membrane, recurrence not specified H66.002 [facility] [id number] [place] [address] 05511- 3002 Apr, [facility] [id number] [place] [address] 28658- 4461 Mar, [facility] [id number] [place] [address] 37279- 2342 Mar, ADHD (attention deficit hyperactivity disorder), combined type F90.2 [facility] [id number] [place] [address] 16622- 8449 Feb, ADHD (attention deficit hyperactivity disorder), combined type F90.2 [facility] [address] [place] [address] 09616- 9412 Feb, [facility] [id number] [place] [address] 13693- 8194 Jan, ADHD (attention deficit hyperactivity disorder), combined type F90.2 ; Anxiety disorder, unspecified type F41.9 ; Depressive disorder, not elsewhere classified F32.9 and Obsessive-compulsive disorder, unspecified type F42.9 [facility] [address] [place] [address] 02267- 7461 Dec, ADHD (attention deficit hyperactivity disorder), combined type F90.2 ; Anxiety disorder, unspecified type F41.9 ; Depressive disorder, not elsewhere classified F32.9 and Obsessive-compulsive disorder, unspecified type F42.9 [facility] [address], [place] [address]- 3023 Dec, [facility] [address] [address] 7766 Nov, ADHD (attention deficit hyperactivity disorder), combined type F90.2 ; Anxiety disorder, unspecified type F41.9 ; Depressive disorder, not elsewhere classified F32.9 and Obsessive-compulsive disorder, unspecified type F42.9 [facility] [address], [place] [address]- 3197 Nov, ADHD (attention deficit hyperactivity disorder), combined type F90.2 ; Anxiety disorder, unspecified type F41.9 ; Depressive disorder, not elsewhere classified F32.9 and Obsessive-compulsive disorder, unspecified type F42.9 [facility] [address], [place] [address]- 8592 Nov, [facility] [address], [place] [address]- 7506 Oct, ADHD (attention deficit hyperactivity disorder), combined type F90.2 [facility] [address], [place] [address]- 9613 Oct, [facility] [address] [place] [address]- 4491 Oct, ADHD (attention deficit hyperactivity disorder), combined type F90.2 [facility] [address], [place] [address]- 7771 Oct, ADHD (attention deficit hyperactivity disorder), combined type F90.2 ; Anxiety disorder, unspecified type F41.9 ; Depressive disorder, not elsewhere classified F32.9 and Obsessive-compulsive disorder, unspecified type F42.9 [facility] [address] [place] [address]- 9772 Oct, Depressive disorder, not elsewhere classified F32.9 ; Anxiety disorder, unspecified type F41.9 and ADHD (attention deficit hyperactivity disorder), combined type F90.2 IMMUNIZATIONS No Known Immunizations SOCIAL HISTORY Never Assessed REASON FOR VISIT f/u - David GUERRERO, Reginald signed stimulant contract PLAN OF CARE Activity Details Follow Up 4 Weeks Reason: f/u VITAL SIGNS Height 65.5 in 2016-12-22 Weight 148.1 lbs 2016-12-22 Heart Rate 120 bpm 2016-12-22 Respiratory Rate 20 2016-12-22 BMI 24.27 kg/m2 2016-12-22 Blood pressure systolic 128 mmHg 2016-12-22 Blood pressure diastolic 80 mmHg 2016-12-22 MEDICATIONS Medication Instructions Dosage Frequency Start Date End Date Duration Status Naproxen 500 MG Orally every 12 hrs 1 tablet as needed 12h Active Depakote 250 MG Orally 2 times a day 1 tablet 12h Active HydrOXYzine HCl 25 MG Orally twice a day as needed for sleep/anxiety 1/2 to 1 tablet 30 day(s) Active Prozac 20 mg Orally twice a day 1 capsule 12h 30 days Active Albuterol Sulfate HFA 108 (90 Base) MCG/ACT Inhalation every 4 hrs 2 puffs as needed 4h Active Vyvanse 30 MG Orally Once a day in the morning 1 capsule Nov, 28 days Active Flexeril 10 MG [...] problem Surgical History C section Surgical History [place] [facility] Hospitalization History Surgery/Child Hospitalization History psychiatric hospitalization 2010
--- OUTSIDE RECORDS SUMMARY | 2018-07-09 17:18 | XMS REPORT ---
Author Author ALISON LILLY [facility] Address [address] [place] [address] Care Team Providers Care French Instructor Name Role Phone ADELIA LILLYGILBERT Unavailable PROBLEMS Type Condition ICD9-CM Code LOH01-MR Code Onset Dates Condition Status SNOMED Code Problem Depressive disorder, not elsewhere classified F32.9 Active 57170716 Problem ADHD (attention deficit hyperactivity disorder), combined type F90.2 Active 86829586 Problem Anxiety disorder, unspecified type F41.9 Active [id number] ALLERGIES No Information ENCOUNTERS Encounter Location Date Diagnosis [facility] [id number] [place] [phone] Aug, [facility] [id number] [place] [phone]- [phone] Jul, [facility] [id number] [place] [address] [phone] Jul, ADHD (attention deficit hyperactivity disorder), combined type F90.2 [facility] [id number] [place] [address] [phone]- [phone] 16 Jun, 2017 ADHD (attention deficit hyperactivity disorder), combined type F90.2 [facility] [id number] [place] [address]- [phone] Jun, ADHD (attention deficit hyperactivity disorder), combined type F90.2 [facility] [id number] [place] [address] 7[address]01- 5627 May, ADHD (attention deficit hyperactivity disorder), combined type F90.2 [facility] [id number] [place] [address] [phone]- [phone] May, [facility] [id number] [place] [address] 97447- 0691 May, ADHD (attention deficit hyperactivity disorder), combined type F90.2 ; Anxiety disorder, unspecified type F41.9 ; Depressive disorder, not elsewhere classified F32.9 and Obsessive-compulsive disorder, unspecified type F42.9 [facility] [address] [address] Apr, ADHD (attention deficit hyperactivity disorder), combined type F90.2 [facility] [id number] [place] [phone] Apr, Acute suppurative otitis media of left ear without spontaneous rupture of tympanic membrane, recurrence not specified H66.002 [facility] [id number] [place] [address] 37342- 9553 Apr, [facility] [id number] [place] [address] 69912- 1551 Mar, [facility] [id number] [place] [address] [phone]- 7765 Mar, ADHD (attention deficit hyperactivity disorder), combined type F90.2 [facility] [id number] [place] [address] 68825- 9517 Feb, ADHD (attention deficit hyperactivity disorder), combined type F90.2 [facility] [address] [address] Feb, [facility] [id number] [place] [address] [phone]- [address] Jan, ADHD (attention deficit hyperactivity disorder), combined type F90.2 ; Anxiety disorder, unspecified type F41.9 ; Depressive disorder, not elsewhere classified F32.9 and Obsessive-compulsive disorder, unspecified type F42.9 [facility] [address] [address] Dec, ADHD (attention deficit hyperactivity disorder), combined type F90.2 ; Anxiety disorder, unspecified type F41.9 ; Depressive disorder, not elsewhere classified F32.9 and Obsessive-compulsive disorder, unspecified type F42.9 [facility] [address] [address] Dec, [facility] [id number] [place] [address] 39129- 3953 Nov, ADHD (attention deficit hyperactivity disorder), combined type F90.2 ; Anxiety disorder, unspecified type F41.9 ; Depressive disorder, not elsewhere classified F32.9 and Obsessive-compulsive disorder, unspecified type F42.9 [facility] [id number] [address] Nov, ADHD (attention deficit hyperactivity disorder), combined type F90.2 ; Anxiety disorder, unspecified type F41.9 ; Depressive disorder, not elsewhere classified F32.9 and Obsessive-compulsive disorder, unspecified type F42.9 [facility] [address] [address] Nov, [facility] [address] [address] Oct, ADHD (attention deficit hyperactivity disorder), combined type F90.2 [facility] [address] [address] Oct, [facility] [id number] [address] Oct, ADHD (attention deficit hyperactivity disorder), combined type F90.2 [facility] [id number] [address] Oct, ADHD (attention deficit hyperactivity disorder), combined type F90.2 ; Anxiety disorder, unspecified type F41.9 ; Depressive disorder, not elsewhere classified F32.9 and Obsessive-compulsive disorder, unspecified type F42.9 [facility] [id number] [address] Oct, Depressive disorder, not elsewhere classified F32.9 [...] 1 capsule in the morning 24h Oct, 14 days Active RESULTS No Results PROCEDURES No Known procedures INSTRUCTIONS MEDICATIONS ADMINISTERED No Known Medications MEDICAL (GENERAL) HISTORY Type Description Date Medical History migraines Medical History asthma Medical History Hx of febrile seizure at 18 mos Medical History Denies any hx of heart problem Surgical History C section Surgical History Lasara Teeth Hospitalization History Surgery/Child Hospitalization History psychiatric hospitalization 2010
[2018-07-09] MEDS ORDERED: ONDANSETRON 4 MG/2 ML (SDV) Z0FRAN ONE (17:45)
[2018-07-09] MEDS ORDERED: ACETAMINOPHEN 325 MG TABLET ONE (17:46)
--- NOTE | 2018-07-09 17:50 | ED Respiratory ---
General Chief Complaint: Respiratory Problems Stated Complaint: 32 WKS PREG/CP Source: patient Exam Limitations: no limitations History of Present Illness Date Seen by Provider: Jul 09, 2018 Time Seen by Provider: 17:47 Initial Comments To ER per private vehicle from home with reports of chest pain, palpitations. She initially presented to [facility], then was transferred down here. She denies cough fevers or chills. She is 32 weeks 4 days gestation. She is . History of preeclampsia and HELLP syndrome during first . Timing/Duration: just prior to arrival Severity: moderate Associated Symptoms: shortness of breath (IV for) Allergies and Home Medications Allergies Coded Allergies: atomoxetine (Unverified Adverse Reaction, Unknown, 05/30/18) Patient Home Medication List Home Medication List Reviewed: Yes Review of Systems Review of Systems Constitutional: see HPI (Tylenol) EENTM: see HPI Respiratory: no symptoms reported Cardiovascular: see HPI, chest pain, palpitations Genitourinary: no symptoms reported Musculoskeletal: no symptoms reported Skin: no symptoms reported Psychiatric/Neurological: No Symptoms Reported Hematologic/Lymphatic: No Symptoms Reported Past Dkjuygm-Pvdxdw-Eqsxcn Hx Patient Social History Alcohol Use: Denies Use Recreational Drug Use: No Smoking Status: Former Smoker Type Used: Cigarettes 2nd Hand Smoke Exposure: No Recent Hopitalizations: No Physical Abuse: No Sexual Abuse: No Seasonal Allergies Seasonal Allergies: Yes Past Medical History Surgeries: Yes (WISDOM TEETH) Section Respiratory: Yes Asthma Cardiac: Yes (TACHYCARDIA) Hypertension Neurological: Yes Concussion, Headaches /Migraines Genitourinary: No Gastrointestinal: No Musculoskeletal: No Endocrine: No HEENT: Yes Double Vision Cancer: No Psychosocial: Yes ADD/ADHD, Anxiety, Depression Blood Disorders: No Adverse Reaction/Blood Tranf: No Physical Exam Vital Signs - First Documented 07/09/18 17:35 Temp 97.8 Pulse 94 Resp 14 B/P (MAP) 125/87 (100) Pulse Ox 99 O2 Delivery Room Air Capillary Refill : Height: 5'5.00" Weight: 180lbs. 6.0oz. 81.090176er; 30.0 BMI Method: General Appearance: WD/WN, no apparent distress Eyes: Bilateral Eye Normal Inspection, Bilateral Eye PERRL, Bilateral Eye EOMI HEENT: PERRL/EOMI, normal ENT inspection Neck: non-tender, full range of motion Respiratory: no respiratory distress, no accessory muscle use Cardiovascular: regular rate, rhythm, no murmur Gastrointestinal: normal bowel sounds, soft Extremities: normal range of motion, non-tender Neurologic/Psychiatric: alert, normal mood/affect, oriented x 3 Skin: normal color, warm/dry Progress/Results/Core Measures Suspected Sepsis SIRS Temperature: Pulse: Respiratory Rate: Laboratory Tests 07/09/18 17:15: White Blood Count 14.9H Blood Pressure / Mean: Laboratory Tests 07/09/18 17:15: Creatinine 0.59L, Platelet Count 320, Total Bilirubin 0.3 Results/Orders Lab Results Laboratory Tests Test 07/09/18 17:15 Range/Units White Blood Count 14.9 H 4.3-11.0 10^3/uL Red Blood Count 4.18 L 4.35-5.85 10^6/uL Hemoglobin 12.1 11.5-16.0 G/DL Hematocrit 37 35-52 % Mean Corpuscular Volume 88 80-99 FL Mean Corpuscular Hemoglobin 29 25-34 PG Mean Corpuscular Hemoglobin Concent 33 32-36 G/DL Red Cell Distribution Width 12.9 10.0-14.5 % Platelet Count 320 130-400 10^3/uL Mean Platelet Volume 10.1 7.4-10.4 FL Neutrophils (%) (Auto) 71 42-75 % Lymphocytes (%) (Auto) 19 12-44 % Monocytes (%) (Auto) 9 0-12 % Eosinophils (%) (Auto) 1 0-10 % Basophils (%) (Auto) 0 0-10 % Neutrophils # (Auto) 10.6 H 1.8-7.8 X 10^3 Lymphocytes # (Auto) 2.8 1.0-4.0 X 10^3 Monocytes # (Auto) 1.3 H 0.0-1.0 X 10^3 Eosinophils # (Auto) 0.2 0.0-0.3 10^3/uL Basophils # (Auto) 0.0 0.0-0.1 10^3/uL Neutrophils % (Manual) 61 % Lymphocytes % (Manual) 29 % Monocytes % (Manual) 4 % Eosinophils % (Manual) 2 % Basophils % (Manual) 0 % Band Neutrophils 4 % Blood Morphology Comment NORMAL Sodium Level 136 135-145 MMOL/L Potassium Level 4.1 3.6-5.0 MMOL/L Chloride Level 107 98-107 MMOL/L Carbon Dioxide Level 19 L 21-32 MMOL/L Anion Gap 10 5-14 MMOL/L Blood Urea Nitrogen 7 7-18 MG/DL Creatinine 0.59 L 0.60-1.30 MG/DL Estimat Glomerular Filtration Rate > 60 BUN/Creatinine Ratio 12 Glucose Level 78 70-105 MG/DL Calcium Level 9.2 8.5-10.1 MG/DL Corrected Calcium 9.5 8.5-10.1 MG/DL Magnesium Level 1.8 1.8-2.4 MG/DL Total Bilirubin 0.3 0.1-1.0 MG/DL Aspartate Amino Transf (AST/SGOT) 17 5-34 U/L Alanine Aminotransferase (ALT/SGPT) 20 0-55 U/L Alkaline Phosphatase 124 40-136 U/L Troponin I < 0.028 <0.028 NG/ML B-Type Natriuretic Peptide < 10.0 <100.0 PG/ML Total Protein 7.2 6.4-8.2 GM/DL Albumin 3.6 3.2-4.5 GM/DL My Orders Orders - CARI LEÓN APRN Cbc With Automated Diff (07/09/18 17:45) Comprehensive Metabolic Panel (07/09/18 17:45) BNP (07/09/18 17:45) Troponin I (07/09/18 17:45) Ekg Tracing (07/09/18 17:45) Iv Heplock-Insert (Order) (07/09/18 17:45) Ondansetron Injection (Zofran Injectio (07/09/18 17:45) Acetaminophen Tablet/Caplet (Tylenol T (07/09/18 17:46) Manual Differential (07/09/18 17:15) Magnesium (07/09/18 18:29) Medications Given in ED Current Medications Medications Dose Ordered Sig/Romel Route Start Time Stop Time Status Last Admin Dose Admin Acetaminophen 325 mg STK-MED ONCE .ROUTE 07/09/18 17:46 07/09/18 17:51 DC 07/09/18 17:52 650 MG Ondansetron HCl 4 mg STK-MED ONCE .ROUTE 07/09/18 17:45 07/09/18 17:51 DC 07/09/18 17:51 4 MG Vital Signs/I&O 07/09/18 17:35 Temp 97.8 Pulse 94 Resp 14 B/P (MAP) 125/87 (100) Pulse Ox 99 O2 Delivery Room Air Capillary Refill : Departure Communication (Admissions) 2026-I discussed the case with the patient's drafter electromechanical Dr. Avelar. He states that he just started her on labetalol 2 days ago. He recommends she go home, continue the labetalol, bedrest, follow-up in his office on Thursday. Return to ER for any worsening symptoms in the interim. She's remained normal sinus rhythm rate of 93 without ectopy during ER visit. Blood pressure is fine in the 120 systolic. She does not have tachycardia or tachypnea or hypoxia. Impression Primary Impression: Palpitations Additional Impression: 32 weeks gestation of Disposition: HOME, SELF-CARE Condition: Stable Departure-Patient Inst. Decision time for Depature: 18:56 Referrals: PATRICK AVELAR DO (PCP/Family) Primary Care Physician Patient Instructions: Palpitations Add. Discharge Instructions: 1. Go home, stay on bed rest this , follow-up with Dr. Wilson in the office on Thursday. If you do not have an time already scheduled then call Thursday morning for a time. Return to ER in the meantime for any worsening shortness of breath palpitations or other concerns. All discharge instructions reviewed with patient and/or family. Voiced understanding. Work/School Note: Work Release Form Date Seen in the Emergency Department: Jul 09, 2018 Return to Work: Jul 13, 2018 CARI LEÓN APRN Jul 09, 2018 17:50
[2018-07-09 18:05] LABS: BASOPHILS % (AUTO) 0 % (0-10); EOSINOPHILS # (AUTO) 0.2 10^3/uL (0.0-0.3); EOSINOPHILS % (AUTO) 1 % (0-10); HEMATOCRIT 37 % (35-52); HEMOGLOBIN 12.1 G/DL (11.5-16.0); LYMPHOCYTES # (AUTO) 2.8 X 10^3 (1.0-4.0); LYMPHOCYTES % (AUTO) 19 % (12-44); MEAN CORPUSCULAR HEMOGLOBIN 29 PG (25-34); MEAN CORPUSCULAR HGB CONC 33 G/DL (32-36); MEAN CORPUSCULAR VOLUME 88 FL (80-99); MEAN PLATELET VOLUME 10.1 FL (7.4-10.4); MONOCYTES # (AUTO) 1.3 X 10^3 (0.0-1.0); MONOCYTES % (AUTO) 9 % (0-12); NEUTROPHILS # (AUTO) 10.6 X 10^3 (1.8-7.8); NEUTROPHILS % (AUTO) 71 % (42-75); PLATELET COUNT 320 10^3/uL (130-400); RED CELL DISTRIBUTION WIDTH 12.9 % (10.0-14.5); WHITE BLOOD COUNT 14.9 10^3/uL (4.3-11.0)
[2018-07-09 18:22] LABS: ALANINE AMINOTRANSFERASE 20 U/L (0-55); ALBUMIN 3.6 GM/DL (3.2-4.5); ALKALINE PHOSPHATASE 124 U/L (40-136); BILIRUBIN,TOTAL 0.3 MG/DL (0.1-1.0); BUN/CREATININE RATIO 12; CALCIUM 9.2 MG/DL (8.5-10.1); CARBON DIOXIDE 19 MMOL/L (21-32); CHLORIDE 107 MMOL/L (98-107); CREATININE SERUM 0.59 MG/DL (0.60-1.30); GFR ESTIMATED > 60; GLUCOSE 78 MG/DL (70-105); POTASSIUM 4.1 MMOL/L (3.6-5.0); SODIUM 136 MMOL/L (135-145); TOTAL PROTEIN 7.2 GM/DL (6.4-8.2)
[2018-07-09 18:35] LABS: BAND NEUTROPHILS 4 %; BASOPHILS % (MANUAL) 0 %; EOSINOPHILS % (MANUAL) 2 %; LYMPHOCYTES % (MANUAL) 29 %; MONOCYTES % (MANUAL) 4 %; NEUTROPHILS % (MANUAL) 61 %; RBC MORPH NORMAL
--- NOTE | 2018-07-09 18:52 | NUR ---
report given to SUSAN Alex
[2018-07-09 19:00] VITALS: BP 119/80
== END 2018-07-09 19:03 | disposition home or self-care (01) ==
LOC: EDUNIT# 17:07 → ER 17:09
DX: O26.893 Other specified pregnancy related conditions, third trimester (principal); R00.2 Palpitations; O99.513 Diseases of the respiratory system complicating pregnancy, third trimester; J45.909 Unspecified asthma, uncomplicated; O10.913 Unspecified pre-existing hypertension complicating pregnancy, third trimester; O99.353 Diseases of the nervous system complicating pregnancy, third trimester; G43.909 Migraine, unspecified, not intractable, without status migrainosus; O99.343 Other mental disorders complicating pregnancy, third trimester; F41.9 Anxiety disorder, unspecified; F32.9 Major depressive disorder, single episode, unspecified; F90.9 Attention-deficit hyperactivity disorder, unspecified type; Z87.891 Personal history of nicotine dependence; Z88.8 Allergy status to other drugs, medicaments and biological substances; Z3A.32 32 weeks gestation of pregnancy
CPT/HCPCS: 36415; 80053; 83735; 83880; 84484; 85007; 85027; 93005

== ENCOUNTER 2018-07-18 19:00 | Outpatient (CLI) | payer MEDICAID ==
[~2018-07-18] VITALS: Ht 165.1 cm; Wt 83.9 kg
--- NOTE | 2018-07-18 19:05 | NUR ---
DAVID LOPEZ presented to unit via ambulation from ED/home, by self, with c/o HEADACHE,SEEING SPOTS,NOSE BLEED, BP 175/110. DAVID LOPEZ weighed, gowned, voided, and to bed. EFHM and TOCO applied, VS taken. DAVID LOPEZ oriented to bed controls, call light, TV, heat, and A/C controls.
[2018-07-18 19:17] VITALS: BP 162/96
[2018-07-18 19:21] VITALS: BP 152/89
[2018-07-18 19:26] VITALS: BP 138/81
[2018-07-18] MEDS ORDERED: APAP 300 MG/CODEINE 30 MG (TYLENOL #3) TAB PO ONE (19:45)
[2018-07-18] MEDS ORDERED: LABE200T7 PO (19:46)
--- NOTE | 2018-07-18 20:00 | NUR ---
D/C instructions given & explained, pt. verbalized understanding & signed, copy of D/C instructions given to pt. Instructed pt. to call office tomorrow & schedule appt for this week & number given, pt. verbalized understanding. Reassurance given, encouraged pt. to go home & rest. Pt. left [facility] ambulatory, to home via private vehicle.
== END 2018-07-18 20:00 | disposition home or self-care (01) ==
LOC: LDRP 19:00 → WSo 19:00
PROVIDERS: ATTEND Obstetrics & Gynecology
DX: O99.89 Other specified diseases and conditions complicating pregnancy, childbirth and the puerperium (principal); R51 Headache; Z3A.34 34 weeks gestation of pregnancy
CPT/HCPCS: 99212

== ENCOUNTER 2018-07-23 13:10 | Outpatient (CLI) | payer MEDICAID ==
[~2018-07-23] VITALS: Ht 165.1 cm; Wt 82.1 kg
--- NOTE | 2018-07-23 13:00 | NUR ---
Arrived to unit sent from [facility] office per Dr Velasquez for elevated bp's in office and c/o headache, vision changes, epigastric pain, nausea and emesis x1 today. Wt obtained and to room 315. Gowned and urine sample obtained. To bed and monitors on. oriented to room, call light and surroundings.
[~2018-07-23 13:10] MED LIST changes: +LABE200T7 PO
[2018-07-23 13:30] VITALS: BP 139/97
[2018-07-23] MEDS ORDERED: DIPH25CA79 PO (13:38)
[2018-07-23] MEDS ORDERED: CALC500T7 PO (13:38)
[2018-07-23] MEDS ORDERED: FLU QUADRIvalent (5+ YOA) 2018-2019 (AFLURIA) 0.5 ML IM ONE (13:45)
[2018-07-23 13:47] LABS: BASOPHILS % (AUTO) 0 % (0-10); EOSINOPHILS # (AUTO) 0.1 10^3/uL (0.0-0.3); EOSINOPHILS % (AUTO) 1 % (0-10); HEMATOCRIT 33 % (35-52); HEMOGLOBIN 11.1 G/DL (11.5-16.0); LYMPHOCYTES # (AUTO) 2.1 X 10^3 (1.0-4.0); LYMPHOCYTES % (AUTO) 16 % (12-44); MEAN CORPUSCULAR HEMOGLOBIN 29 PG (25-34); MEAN CORPUSCULAR HGB CONC 33 G/DL (32-36); MEAN CORPUSCULAR VOLUME 87 FL (80-99); MEAN PLATELET VOLUME 10.2 FL (7.4-10.4); MONOCYTES % (AUTO) 7 % (0-12); NEUTROPHILS # (AUTO) 10.2 X 10^3 (1.8-7.8); NEUTROPHILS % (AUTO) 76 % (42-75); PLATELET COUNT 299 10^3/uL (130-400); WHITE BLOOD COUNT 13.4 10^3/uL (4.3-11.0)
[2018-07-23 13:50] VITALS: BP 143/83
--- NOTE | 2018-07-23 13:59 | NUR ---
pt up to bathroom and then back to bed. sono done at this time.
[2018-07-23] MEDS ORDERED: CATHETER FLUSH 10 ML SYR IV SCH (14:00)
[2018-07-23 14:09] LABS: ALANINE AMINOTRANSFERASE 13 U/L (0-55); ALBUMIN 3.4 GM/DL (3.2-4.5); ALKALINE PHOSPHATASE 127 U/L (40-136); BILIRUBIN,TOTAL 0.2 MG/DL (0.1-1.0); BUN/CREATININE RATIO 10; CALCIUM 9.6 MG/DL (8.5-10.1); CARBON DIOXIDE 19 MMOL/L (21-32); CHLORIDE 107 MMOL/L (98-107); CREATININE SERUM 0.61 MG/DL (0.60-1.30); GFR ESTIMATED > 60; GLUCOSE 104 MG/DL (70-105); POTASSIUM 3.9 MMOL/L (3.6-5.0); SODIUM 136 MMOL/L (135-145); TOTAL PROTEIN 6.7 GM/DL (6.4-8.2); URIC ACID 5.6 MG/DL (2.6-7.2)
--- NOTE | 2018-07-23 14:24 | NUR ---
monitors resumed after sono
[2018-07-23 14:30] VITALS: BP 137/86
--- NOTE | 2018-07-23 14:36 | NUR ---
Dr Avelar called and notified of lab results, vital signs obtained, fhr pattern reactive, contractions noted 3-6min, mild palpation, sve done. bpp result and erin result. new orders for discharge received.
--- NOTE | 2018-07-23 14:39 | NUR ---
Plan of care reviewed with pt and verbalized understanding. monitors off and pt up to get dressed.
--- NOTE | 2018-07-23 14:49 | Diagnostic Imaging Report ---
INDICATION: Decreased movement. TECHNIQUE: Limited real-time grayscale images were obtained over the gravid uterus in various projections. FINDINGS: There is a single living intrauterine in a cephalic presentation. Amniotic fluid index is 16.75. Heart rate is 150 beats per minute. biophysical profile score is 8 out of 8. IMPRESSION: Normal biophysical profile score of 8 out of 8. Dictated by: Dictated on workstation # [id number]
--- NOTE | 2018-07-23 15:10 | NUR ---
Discharge instructions explained, signed and copy to patient. pt verbalized understanding of instructions and denied questions.
--- NOTE | 2018-07-23 15:15 | NUR ---
pt ambulates self off unit to taxi to be taken back to [facility] where her vehicle is. (taxi voucher given).
[2018-07-24 14:56] LABS: PROTEIN URINE MG/DL 10 MG/DL (6-12)
[2018-07-24 15:23] LABS: PROTEIN 24 HOUR URINE 207 MG/24H (0-149); TOTAL VOLUME,URINE 2075 ML
--- NOTE | 2018-07-27 18:01 | Physician Query-Final Dx ---
EILEEN PELAYO 07/27/18 1801: Clinic Account Progress/Dx Physician Query: Please give diagnosis Date of Service GUILLE GERONIMO MD 07/28/182125: Clinic Account Progress/Dx DIAGNOSIS: Diagnosis Gestational hypertension 34 weeks gestation EILEEN PELAYO Jul 27, 2018 18:01 GUILLE GERONIMO MD Jul 28, 2018 21:26
--- NOTE | 2018-08-03 07:24 | Discharge Inst-Women's Service ---
Discharge Inst-Women's Serv Depart Medication/Instructions New, Converted or Re-Newed RX: RX Given to Pt/Family Instructions Pelvic rest for 6 weeks. No heavy lifting, less than 20 pounds. No strenuous activities. Tub soaks 2-3 x daily. Final Diagnosis Intrauterine at 36 weeks 2. Induced Hypertension 3. Previous Consults/Follow Up Additional Follow Up: Yes Activity Activity: Activity as Tolerated Driving Instructions: No Driving for 1 Week Nothing Inside Vagina: No Douching, No Sunsites, No Tampons Diet Discharge Diet: No Restrictions Return to The Hospital For: Bleeding greater than one pad per hour Temperature greater than 100.4 Symptoms to Report to DrMaya: Bleeding Excessive, Fever Over 101 Degrees F, Vaginal Bleeding Increase For Any Problems or Questions: Contact Your Physician Skin/Wound Care Infection Signs and Symptoms: Increased Redness, Foul Odor of Wound, Temperature Above 101 F Bathing Instructions: Mai Shower PATRICK COLE DO Aug 03, 2018 07:23
[2018-08-03] MEDS ORDERED: OXYC1TAB87 PO (07:26)
[2018-08-03] MEDS ORDERED: IBUP-1780 PO (07:27)
== END 2018-07-23 15:15 | disposition home or self-care (01) ==
LOC: LDRP 13:10 → WSo 13:10 → UNDOADMOB 13:10 → LDRP 13:10 → UNDODISOB 15:15 → WSo 15:15 → EDSTATUS 08-03 03:24
PROVIDERS: ATTEND Family Medicine
DX: O13.3 Gestational [pregnancy-induced] hypertension without significant proteinuria, third trimester (principal); Z3A.34 34 weeks gestation of pregnancy
CPT/HCPCS: 36415; 76819; 80053; 83615; 84156; 84550; 85025; 86850; 86900; 86901; 90471; 90686

== ENCOUNTER 2018-07-29 13:56 | Outpatient (CLI) | payer MEDICAID ==
[~2018-07-29] VITALS: Ht 165.1 cm; Wt 85.3 kg
[~2018-07-29 13:56] MED LIST changes: +CALC500T7 PO; +DIPH25CA79 PO
[2018-07-29] MEDS ORDERED: DOCU-143 PO (14:04)
== END 2018-07-29 14:20 | disposition home or self-care (01) ==
LOC: PREOP 13:56
PROVIDERS: ATTEND Obstetrics & Gynecology
DX: Z01.818 Encounter for other preprocedural examination (principal)
CPT/HCPCS: 87081

== ENCOUNTER 2018-08-02 06:11 | Inpatient (IN) | payer MEDICAID ==
[~2018-08-02] VITALS: Ht 165.1 cm; Wt 84.4 kg
--- NOTE | 2018-08-02 06:10 | NUR ---
DAVID LOPEZ presented to unit via ambulation from ED, accompanied by SO , with plan for scheduled . DAVID OLPEZ weighed, gowned, voided, and to bed. EFHM and TOCO applied, VS taken. DAVID LOPEZ oriented to bed controls, call light, TV, heat, and A/C controls.
[~2018-08-02 06:11] MED LIST changes: +CITRIC ACID/SOB CIT (BICITRA) 30 ML UDC ONE; +DOCU-143 PO; +FAMOTIDINE 20MG/2ML IV (PEPCID) ONE; +LACTATED RINGERS 1,000 ML IV ONE; +METOCLOPRAMIDE INJ 10 MG/2 ML (REGLAN) ONE
[2018-08-02 06:20] VITALS: BP 145/94
[2018-08-02] MEDS ORDERED: LACTATED RINGERS 1,000 ML IV PRN (06:20)
[2018-08-02] MEDS ORDERED: CATHETER FLUSH 10 ML SYR IV PRN (06:30)
[2018-08-02] MEDS ORDERED: CITRIC ACID/SOB CIT (BICITRA) 30 ML UDC PO ONE (06:30)
[2018-08-02] MEDS ORDERED: METOCLOPRAMIDE INJ 10 MG/2 ML (REGLAN) IV ONE (06:30)
[2018-08-02] MEDS ORDERED: FAMOTIDINE 20MG/2ML IV (PEPCID) IVP ONE (06:30)
[2018-08-02] MEDS ORDERED: ceFAZolin 2 GM IV Premixed 50 ML IV ONE (06:30)
[2018-08-02] MEDS ORDERED: ceFAZolin 2 GM IV Premixed 50 ML ONE (06:34)
[2018-08-02 06:36] LABS: BASOPHILS % (AUTO) 0 % (0-10); EOSINOPHILS # (AUTO) 0.2 10^3/uL (0.0-0.3); EOSINOPHILS % (AUTO) 2 % (0-10); HEMATOCRIT 32 % (35-52); HEMOGLOBIN 10.6 G/DL (11.5-16.0); LYMPHOCYTES # (AUTO) 3.1 X 10^3 (1.0-4.0); LYMPHOCYTES % (AUTO) 24 % (12-44); MEAN CORPUSCULAR HEMOGLOBIN 29 PG (25-34); MEAN CORPUSCULAR HGB CONC 34 G/DL (32-36); MEAN CORPUSCULAR VOLUME 86 FL (80-99); MONOCYTES # (AUTO) 1.3 X 10^3 (0.0-1.0); MONOCYTES % (AUTO) 10 % (0-12); NEUTROPHILS # (AUTO) 8.7 X 10^3 (1.8-7.8); NEUTROPHILS % (AUTO) 65 % (42-75); PLATELET COUNT 312 10^3/uL (130-400); RED CELL DISTRIBUTION WIDTH 13.4 % (10.0-14.5); WHITE BLOOD COUNT 13.4 10^3/uL (4.3-11.0)
--- NOTE | 2018-08-02 06:48 | NUR ---
Dr Varghese contacted and plan to arrive and be present for delivery of via c section.
--- NOTE | 2018-08-02 07:01 | History & Physical-OB/GYN ---
History of Present Illness History of Present Illness Reason for visit/HPI Ms. Moffett is a scheduled at 36 weeks for Induced Hypertension (Gestational Hypertension). Also, she is a previous . Date of Admission Aug 02, 2018 at 06:11 Date Seen by a Provider: Aug 02, 2018 Time Seen by a Provider: 06:50 I consulted on this patient on 08/02/18 06:56 Attending Physician Teto Avelar DO Admitting Physician Teto Avelar DO Consult Allergies and Home Medications Allergies Coded Allergies: atomoxetine (Unverified Adverse Reaction, Unknown, 05/30/18) Home Medications Calcium Carbonate 200 Mg Tab.chew, 200 MG PO QID PRN for HEARTBURN, (Reported) Diphenhydramine HCl 25 Mg Capsule, 50 MG PO HS PRN for SLEEP, (Reported) TAKE 2 (25MG) TABS Docusate Sodium 100 Mg Capsule, 100 MG PO BID, (Reported) Labetalol HCl 200 Mg Tablet, 200 MG PO TID, (Reported) Wlb470/Iron Fumarate/FA/Dss 1 Each Tablet, 1 EACH PO DAILY, (Reported) Patient Home Medication List Home Medication List Reviewed: Yes Past Lqkvkto-Uzigmk-Mgjyvu Hx Patient Social History Marrital Status: single Number of Children: 1 Number of living children: 1 Employed/Student: student, full-time Alcohol Use: Denies Use Recreational Drug Use: No Type Used: Cigarettes 2nd Hand Smoke Exposure: No Physical Abuse Screen: No Sexual Abuse: No Recent Foreign Travel: No Contact w/other who traveled: No Recent Hopitalizations: No Immunizations Up To Date Date of Influenza Vaccine: Jul 23, 2018 Seasonal Allergies Seasonal Allergies: Yes Surgeries Yes (WISDOM TEETH) Section Respiratory Yes Cardiovascular Yes (TACHYCARDIA, PIH) Hypertension Neurological No Concussion, Headaches /Migraines Reproductive System : Yes Expected Date of Delivery: Aug 31, 2018 Hx : 2 Hx Para: 1 Hx Total # of Abortions (Spona: 0 Hx Reproductive Disorders: No Sexually Transmitted Disease: No HIV/AIDS: No Female Reproductive Disorders: Denies Genitourinary No Gastrointestinal No Musculoskeletal No Endocrine History of Endocrine Disorders: No HEENT History of HEENT Disorders: Yes HEENT Disorders: Double Vision Cancer No Psychosocial History of Psychiatric Problem: Yes Behavioral Health Disorders: ADD/ADHD, Anxiety, Depression Integumentary History of Skin or Integumenta: No Blood Transfusions History of Blood Disorders: No Adverse Reaction to a Blood Tr: No Family Medical History Family Hx: Patient reports no known family medical history. Review of Systems Constitutional: see HPI : Yes Expected Date of Delivery: Aug 31, 2018 Physical Exam Physical Exam Vital Signs Vital Signs Date Time Temp Pulse Resp B/P (MAP) Pulse Ox O2 Delivery O2 Flow Rate FiO2 08/02/18 06:20 98.5 96 20 145/94 (111) Capillary Refill : Labs Laboratory Tests 08/02/18 06:20: White Blood Count 13.4H, Red Blood Count 3.67L, Hemoglobin 10.6L, Hematocrit 32L , Mean Corpuscular Volume 86, Mean Corpuscular Hemoglobin 29, Mean Corpuscular Hemoglobin Concent 34, Red Cell Distribution Width 13.4, Platelet Count 312, Mean Platelet Volume 10.0, Neutrophils (%) (Auto) 65, Lymphocytes (%) (Auto) 24 , Monocytes (%) (Auto) 10, Eosinophils (%) (Auto) 2, Basophils (%) (Auto) 0, Neutrophils # (Auto) 8.7H, Lymphocytes # (Auto) 3.1, Monocytes # (Auto) 1.3H, Eosinophils # (Auto) 0.2, Basophils # (Auto) 0.0 Labia: WNL Vagina: WNL Assessment/Plan Assessment and Plan Assessment: Intrauterine at 36 weeks 2. Induced Hypertension 3. Previous Plan: Ms. Moffett is scheduled for a Repeat this morning. Admission Diagnosis Admission Status: Inpatient Order (span 2 midnights) Reason for Inpatient Admission: Scheduled surgery, Repeat Clinical Quality Measures DVT/VTE Risk/Contraindication: Risk Factor Score Per Nursin RFS Level Per Nursing on Admit: 1=Low/No VTE PPX TETO AVELAR DO Aug 02, 2018 07:01
[2018-08-02] MEDS ORDERED: OXYTOCIN/NORMAL SALINE 1,000 ML IV ONE (07:04)
[2018-08-02] MEDS ORDERED: fentaNYL INJECTION 100 MCG/2 ML AMP ONE (07:04)
[2018-08-02] MEDS ORDERED: BUPIVACAINE SPINAL 0.75% (SENSORCAINE) 2 ML AMP ONE (07:09)
[2018-08-02] MEDS ORDERED: LIDOCAINE PF 2% 5 ML (XYLOCAINE) VIAL ONE (07:09)
[2018-08-02] MEDS ORDERED: PHENYLEPHRINE 100 MCG/ML 10 ML (ANESTHESIA) SYR ONE (07:25)
[2018-08-02] MEDS ORDERED: ONDANSETRON 4 MG/2 ML (SDV) Z0FRAN ONE (07:58)
--- NOTE | 2018-08-02 08:24 | Operative Report ---
Operative Report Date of Procedure/Surgery Aug 02, 2018 Surgeon (s) PATRICK COLE DO Extruding Machine Operator (s): None Post-Operative Diagnosis Intrauterine at 36 weeks 2. Induced Hypertension 3. Previous Procedure Performed Repeat Low Transverse Description of Procedure Anesthesia Type: Spinal Estimated blood loss (mL): 500 ml Specimen(s) collected/removed Placenta and previous skin scar Description of the Procedure .After spinal anesthesia had been dosed and tested, the patient was placed supine on the Operating Room table and prepped and draped in the usual sterile fashion for a section. An elliptical incision was made over the previous skin scar--the old scar was removed. The abdomen incision was carried down to the level of the fascia. The fascia was incised transversely and then the rectus muscle was dissected off the fascia and split bluntly in the midline. The peritoneum was the entered bluntly. The bladder flap was created and then a low segment transverse incision was made with a knife on the uterus until the amniotic fluid was encountered. The incision was widened manually. A hand was inserted and the head were delivered using the usual maneuvers . The nares and oropharynx were bulb suctioned, and the remainder of the infant was delivered out of the maternal abdomen. The cord was doubly clamped and cut, and the infant handed off to the awaiting resuscitation team including the crushed stone grader who was present for delivery. The placenta was then manually extracted and the interior uterus was cleaned with a dry lap sponge. The uterus was exteriorized, and the incision of the uterus closed with a running interlocking stitch of a 0-Vicryl in a running locked fashion, followed by an imbricating layer with the same type of suture. The uterus was replaced in the maternal abdomen. The abdomen was cleared of clots. The parietal peritoneum was closed with a 3-0 Vicryl. The fascia was closed with a running suture of 0-Vicryl suture meeting in the midline. The subcutaneous tissue was noted to be hemostatic, closed with a 3-0 Plain Gut. The skin was approximated with 4-0 Monocryl in a subcuticular manner. Excellent faith of normal skin planes. . The patient tolerated the procedure well. All sponge, needle and instrument counts were correct x3. She was taken to the recovery room in stable condition. Findings of the Procedure A viable male infant in the cephalic presentation Allergies and Home Medications Allergies Coded Allergies: atomoxetine (Unverified Adverse Reaction, Unknown, 05/30/18) Home Medications Calcium Carbonate 200 Mg Tab.chew, 200 MG PO QID PRN for HEARTBURN, (Reported) Diphenhydramine HCl 25 Mg Capsule, 50 MG PO HS PRN for SLEEP, (Reported) TAKE 2 (25MG) TABS Docusate Sodium 100 Mg Capsule, 100 MG PO BID, (Reported) Labetalol HCl 200 Mg Tablet, 200 MG PO TID, (Reported) Cfv059/Iron Fumarate/FA/Dss 1 Each Tablet, 1 EACH PO DAILY, (Reported) Patient Home Medication List Home Medication List Reviewed: Yes PATRICK COLE DO Aug 02, 2018 08:24
[2018-08-02] MEDS ORDERED: OXYTOCIN/NORMAL SALINE 500 ML IV SCH (08:25)
[2018-08-02] MEDS ORDERED: TETANUS,DIPTH,PERTUSS P/F (BOOSTRIX) 0.5 ML VIAL IM SCH (08:30)
[2018-08-02] MEDS ORDERED: MEASLES,MUMPS,RUBELLA 1 EA INJ SC SCH (08:30)
[2018-08-02] MEDS ORDERED: ONDANSETRON 4 MG/2 ML (SDV) Z0FRAN IVP PRN (08:30)
[2018-08-02] MEDS ORDERED: BISACODYL 10 MG SUPP (DULCOLAX) PR PRN (08:30)
[2018-08-02] MEDS ORDERED: BUPIVACAINE 0.5% 30 ML (SENSORCAINE) VIAL ONE (08:46)
[2018-08-02] MEDS ORDERED: BENZONATATE 100 MG (TESSALON) CAPSULE PO SCH (09:00)
[2018-08-02] MEDS ORDERED: KETOROLAC 15 MG/ML VIAL ONE (09:24)
[2018-08-02] MEDS ORDERED: KETOROLAC 30 MG/ML VIAL ONE (09:25)
--- NOTE | 2018-08-02 09:30 | NUR ---
pericare performed, light flow no clots. new vpad to perineum
[2018-08-02] MEDS: KETOROLAC 30 MG/ML VIAL IVP SCH ×3 (09:35→21:18)
[2018-08-02] MEDS ORDERED: oxyCODONE/APAP 5/325MG (PERCOCET 5) TABLET ONE (09:37)
[2018-08-02 09:40] VITALS: BP 138/86
[2018-08-02] MEDS: oxyCODONE/APAP 5/325MG (PERCOCET 5) TABLET PO PRN (09:42)
[2018-08-02] MEDS: fentaNYL INJECTION 100 MCG/2 ML AMP IVP PRN ×5 (10:20→15:50)
[2018-08-02 12:00] VITALS: BP 135/87
[2018-08-02] MEDS ORDERED: METOCLOPRAMIDE 10 MG (REGLAN) TAB PO SCH (12:00)
[2018-08-02] MEDS ORDERED: LORazepam INJ 2 MG/ML (ATIVAN) VIAL IVP NR (12:00)
[2018-08-02 13:55] VITALS: BP 129/83
[2018-08-02] MEDS ORDERED: CATHETER FLUSH 10 ML SYR IV SCH (14:00)
[2018-08-02 16:07] LABS: ALANINE AMINOTRANSFERASE 10 U/L (0-55); ALBUMIN 2.6 GM/DL (3.2-4.5); ALKALINE PHOSPHATASE 105 U/L (40-136); BILIRUBIN,TOTAL 0.3 MG/DL (0.1-1.0); BUN/CREATININE RATIO 11; CALCIUM 7.9 MG/DL (8.5-10.1); CARBON DIOXIDE 19 MMOL/L (21-32); CHLORIDE 110 MMOL/L (98-107); CREATININE SERUM 0.57 MG/DL (0.60-1.30); GFR ESTIMATED > 60; GLUCOSE 67 MG/DL (70-105); POTASSIUM 3.7 MMOL/L (3.6-5.0); SODIUM 138 MMOL/L (135-145); TOTAL PROTEIN 4.9 GM/DL (6.4-8.2); URIC ACID 5.9 MG/DL (2.6-7.2)
[2018-08-02 16:39] LABS: BASOPHILS % (AUTO) 0 % (0-10); EOSINOPHILS # (AUTO) 0.1 10^3/uL (0.0-0.3); EOSINOPHILS % (AUTO) 0 % (0-10); HEMATOCRIT 29 % (35-52); HEMOGLOBIN 9.7 G/DL (11.5-16.0); LYMPHOCYTES # (AUTO) 2.5 X 10^3 (1.0-4.0); LYMPHOCYTES % (AUTO) 16 % (12-44); MEAN CORPUSCULAR HEMOGLOBIN 29 PG (25-34); MEAN CORPUSCULAR HGB CONC 33 G/DL (32-36); MEAN CORPUSCULAR VOLUME 87 FL (80-99); MEAN PLATELET VOLUME 10.3 FL (7.4-10.4); MONOCYTES # (AUTO) 0.9 X 10^3 (0.0-1.0); MONOCYTES % (AUTO) 6 % (0-12); NEUTROPHILS # (AUTO) 12.3 X 10^3 (1.8-7.8); NEUTROPHILS % (AUTO) 78 % (42-75); PLATELET COUNT 249 10^3/uL (130-400); WHITE BLOOD COUNT 15.8 10^3/uL (4.3-11.0)
[2018-08-02] MEDS ORDERED: morphine PCA 100 MG/100 ML BAG IV PRN (16:45)
--- NOTE | 2018-08-02 17:00 | NUR ---
seals to bedside assessing patient abdomen and pain.
[2018-08-02] MEDS ORDERED: NS IV 1000 ML 1,000 ML ONE (17:30)
[2018-08-02 17:40] VITALS: BP 129/85
[2018-08-02] MEDS ORDERED: NS 1000 ML IV BAG IV PRN (17:45)
[2018-08-02 21:36] VITALS: BP 141/93
[2018-08-02] MEDS: DOCUSATE SODIUM 100 MG (COLACE) CAP PO SCH (21:36)
[2018-08-03] MEDS ORDERED: SIMETHICONE 80 MG (MYLICON) CHEW ONE (02:40)
[2018-08-03] MEDS: SIMETHICONE 80 MG (MYLICON) CHEW PO PRN ×2 (02:48→08:51)
[2018-08-03] MEDS: KETOROLAC 30 MG/ML VIAL IVP SCH (02:48)
[2018-08-03 04:10] VITALS: BP 109/68
[2018-08-03] MEDS ORDERED: MILK OF MAGNESIA 400 MG/5 ML 30 ML UDC PO PRN (05:00)
[2018-08-03 06:37] LABS: BASOPHILS % (AUTO) 0 % (0-10); EOSINOPHILS # (AUTO) 0.2 10^3/uL (0.0-0.3); EOSINOPHILS % (AUTO) 2 % (0-10); HEMATOCRIT 32 % (35-52); HEMOGLOBIN 10.3 G/DL (11.5-16.0); LYMPHOCYTES % (AUTO) 26 % (12-44); MEAN CORPUSCULAR HEMOGLOBIN 29 PG (25-34); MEAN CORPUSCULAR HGB CONC 33 G/DL (32-36); MEAN CORPUSCULAR VOLUME 88 FL (80-99); MEAN PLATELET VOLUME 9.9 FL (7.4-10.4); MONOCYTES % (AUTO) 9 % (0-12); NEUTROPHILS # (AUTO) 7.3 X 10^3 (1.8-7.8); NEUTROPHILS % (AUTO) 63 % (42-75); PLATELET COUNT 250 10^3/uL (130-400); RED CELL DISTRIBUTION WIDTH 13.3 % (10.0-14.5); WHITE BLOOD COUNT 11.5 10^3/uL (4.3-11.0)
--- NOTE | 2018-08-03 06:47 | Anesthesia-Regional Post-Op ---
Regional Patient Condition Mental Status: Alert, Oriented x3 Circulation: Same as Pre-Op Headache: Absent Sensation: Full Recovery Motor Block: Absent Post Op Complications Complications None Follow Up Care/Instructions Patient Instructions None needed. Anesthesia/Patient Condition Patient is doing well, no complaints, stable vital signs, no apparent adverse anesthesia problems. No complications reported per nursing. WILLOW GUTIERREZ CRNA Aug 03, 2018 06:47
[2018-08-03] MEDS ORDERED: OXYC1TAB87 PO (07:26)
[2018-08-03] MEDS ORDERED: IBUP-1780 PO (07:27)
--- NOTE | 2018-08-03 07:35 | NUR ---
Dr Avelar in to see pt. Discussed discharge, home care and follow up appointments with pt and SO. They verbalized understanding.
[2018-08-03 07:45] VITALS: BP 129/82
--- NOTE | 2018-08-03 07:45 | NUR ---
Baby transferred to [facility]. Addendum: 08/03/18 at 0938 by KILLIAN ADAN RN Amended: Links added.
[2018-08-03] MEDS: DOCUSATE SODIUM 100 MG (COLACE) CAP PO SCH (08:18)
[2018-08-03] MEDS: oxyCODONE/APAP 5/325MG (PERCOCET 5) TABLET PO PRN (08:43)
--- NOTE | 2018-08-03 10:55 | NUR ---
Explained discharge instructions, home care, and follow up to pt and SO. Pt verbalized understanding verifying with signature. No other concerns voiced at this time.
[2018-08-03 11:15] VITALS: BP 129/82
--- NOTE | 2018-08-03 11:15 | NUR ---
Pt discharge via wheelchair. Accompanied via SO and this nurse. No s/s of distress. All personal items with pt. No other concerns voiced at this time. Pt current on TDAP 03/30/16.
[2018-08-03] MEDS ORDERED: IBUPROFEN 800 MG (MOTRIN) TAB PO SCH (12:00)
== END 2018-08-03 11:15 | disposition home or self-care (01) | DRG 788 ==
LOC: LDRP 06:11
PROVIDERS: ADMIT Obstetrics & Gynecology; ATTEND Obstetrics & Gynecology
PROC: 10D00Z1 Extraction of Products of Conception, Low, Open Approach (ICD-10-PCS; principal; 2018-08-02 07:13)
DX: O13.3 Gestational [pregnancy-induced] hypertension without significant proteinuria, third trimester (principal); O34.211 Maternal care for low transverse scar from previous cesarean delivery; O99.333 Smoking (tobacco) complicating pregnancy, third trimester; F17.210 Nicotine dependence, cigarettes, uncomplicated; O99.343 Other mental disorders complicating pregnancy, third trimester; F32.9 Major depressive disorder, single episode, unspecified; F41.9 Anxiety disorder, unspecified; F98.8 Other specified behavioral and emotional disorders with onset usually occurring in childhood and adolescence; Z3A.36 36 weeks gestation of pregnancy; Z37.0 Single live birth
CPT/HCPCS: 36415; 80053; 83615; 84550; 85025; 86850; 86900; 86901